=== PATIENT | male | born 1955 | race Caucasian/White ===

== ENCOUNTER 2017-04-25 13:00 | Outpatient (RCR) | payer BC ==
[~2017-04-25 13:00] MED LIST: ACETAMINOPHEN325 M1 ORAL; CEPHALEXIN500 MG ORAL; DILAUDID 22 MG/1 ML SUBQ; HEPARIN SO5000 UNIT2 SUBQ; MIRALAX17 GM ORAL; MS CONTIN100 MG ORAL; MYLANTA II30 ML ORAL; OXYCODONE-ACET1 EAC5 ORAL; RESTORIL15 MG ORAL; ROCEPHIN 11 GM/50 ML IVPB; SENOKOT8.6 MG ORAL; XANAX0.5 MG ORAL
== END 2017-04-27 | disposition home or self-care (01) ==
LOC: WCC 13:00
DX: L89.329 Pressure ulcer of left buttock, unspecified stage (principal); G82.21 Paraplegia, complete

== ENCOUNTER 2017-05-16 11:42 | Outpatient (RCR) | payer BC ==
[~2017-05-16] VITALS: Ht 165.1 cm; Wt 68.0 kg
== END 2017-05-28 | disposition home or self-care (01) ==
LOC: WCC 11:42
DX: L89.220 Pressure ulcer of left hip, unstageable (principal); G82.21 Paraplegia, complete; L89.224 Pressure ulcer of left hip, stage 4; L89.322 Pressure ulcer of left buttock, stage 2; L89.613 Pressure ulcer of right heel, stage 3
CPT/HCPCS: 11042; 11043; 87070; 87181; 87205

== ENCOUNTER 2017-05-30 08:47 | Outpatient (RCR) | payer BC ==
--- NOTE | 2017-05-30 14:24 | Infectious Diseases Prog Note ---
Assessment/Plan Problems: (1) Open wound of thigh, complicated Assessment & Plan: with an eschar , S/P I&D with culture grew MDR pseudomonas, klebsiella pneumonia and MSSA, unclear whether he hs underlying deep abscess or osteomyelitis, recommend MRI of the left thigh for further evaluation, and will start him on iv meropenem for minimum of two weeks pending MRI results of the left thigh . plan of care was discussed with patient and his and they agreed to proceed . D/W Dr Pate (2) Osteomyelitis of femur Assessment & Plan: possible due to chronic open wound of the left thigh, will need MRI of the left thigh to rule out osteomyelitis (3) Paraplegia Assessment & Plan: due to an old accident , continue offloading as needed Subjective Allergies: Coded Allergies: MEPERIDINE (Verified Allergy, Mild, 08/15/08) Harvey Correa M.D. May 30, 2017 14:24
--- NOTE | 2017-05-30 17:15 | Consultation ---
DATE OF CONSULTATION: 05/30/2017 INFECTIOUS DISEASE CONSULTATION CONSULTING PHYSICIAN: Harvey Correa M.D. REQUESTING PHYSICIAN: Elmer Pate M.D. REASON FOR CONSULTATION: Left thigh open wound complicated with infection due to Pseudomonas aeruginosa, multidrug resistant, Klebsiella pneumoniae, and MSSA with possible underlying osteomyelitis. Recommendation for antibiotics treatment and further management. 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 It started as redness on the left upper posterior thigh then it opened up and started draining a yellowish material then he formed an eschar in his wound. The patient has been seen [facility] for the last couple of weeks. He had aggressive debridement of his wound scar and culture was sent from that surgical debridement and the result of which grew multidrug-resistant Pseudomonas aeruginosa, Klebsiella pneumoniae, and methicillin-sensitive Staph aureus. Due to the nature of the wound and the depth and concern about underlying bone infection, Infectious Disease consultation was requested for further evaluation and management. The patient denied any local pain or tenderness since he does not have any sensation below T12. He denied any trauma to the left thigh or any skin break. No fever or chills. No cough or shortness of breath. No other associated symptoms. PAST MEDICAL HISTORY: Significant for paraplegia due to accident, chronic pain, and history of ischial wound infection stage IV, status post intravenous antibiotics treatment in 2015. PAST SURGICAL HISTORY: He had low back surgery with rods placement. ALLERGIES: He is allergic to meperidine. SOCIAL HISTORY: The patient lives at home with his . Denied using any drugs, tobacco, or alcohol. REVIEW OF SYSTEMS: A 14-point of system reviewed were all negative apart from the one I mentioned above in my History and Physical. PHYSICAL EXAMINATION: VITAL SIGNS: Reviewed and they are stable. GENERAL: A middle-aged male, paraplegic, lying in bed, comfortable, and not in acute distress. HEENT: Normocephalic and atraumatic. Pupils reactive to light. Moist oral mucosa. No exudate. NECK: Supple. No lymphadenopathy. CARDIOVASCULAR: Regular rate and rhythm. No murmur or gallop. LUNGS: Clear bilaterally. No wheezing or rhonchi. Normal breathing efforts. ABDOMEN: Soft, nontender, and nondistended. Positive bowel sounds. No hepatosplenomegaly. No ascites. EXTREMITY: Muscle atrophy. Left upper posterior thigh chronic deep wound with mild skin erythema. Exposed muscle. No bone exposed. No significant drainage or foul smell. Mild sloughing at the base. LABORATORY DATA: None done recently. IMAGING: No images done recently. ASSESSMENT AND RECOMMENDATION: 1. Open wound of the left thigh complicated with infection due to multidrug-resistant Pseudomonas aeruginosa, Klebsiella pneumoniae, and methicillin-sensitive Staph aureus. Unclear at this point whether he has underlying deep abscess or osteomyelitis. I recommend MRI of the left thigh for further evaluation and I will start him on intravenous meropenem empirically 1 g intravenous q.8 hours for minimum of two weeks pending MRI results of the left thigh. The patient may benefit from grafting in the future once infection is cleared. Plan of care was discussed with the patient and his and they both agreed to proceed. Plan of care also discussed with Dr. Pate and the wound care team. 2. Possible osteomyelitis of the left femur due to chronic open wound of the thigh. We will order MRI of the left thigh to rule out osteomyelitis. The patient will be started on intravenous meropenem empiric coverage. Continue local wound care as needed. 3. Paraplegia due to the old accident. Continue offloading as needed. Thank you for the consultation. ID will continue to follow. Harvey Correa M.D. DR: JAXSON JOB#: [id number] CC:
== END 2017-06-27 | disposition home or self-care (01) ==
LOC: WCC 08:47
DX: L89.224 Pressure ulcer of left hip, stage 4 (principal); L89.613 Pressure ulcer of right heel, stage 3; L89.322 Pressure ulcer of left buttock, stage 2; G82.21 Paraplegia, complete
CPT/HCPCS: 11043; 97605

== ENCOUNTER 2017-06-01 11:13 | Outpatient (CLI) | payer BC ==
[~2017-06-01] VITALS: Ht 165.1 cm; Wt 0.5 kg
[~2017-06-01 11:13] MED LIST changes: +Heparin 2000 units/Ns 1000ml INJ ONE; +Lidocaine 1% Plain 30 ml INJ ONE
--- NOTE | 2017-06-01 12:31 | Diagnostic Imaging Report ---
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 The left upper extremity was prepped with alcohol. All elements of maximal sterile barrier technique were followed including usage of a cap, mask, sterile gown, sterile gloves, hand hygiene and a large sterile sheet. Sonographic evaluation of the upper extremity was performed demonstrating a patent and compressible basilic vein. Access was obtained under real-time ultrasound guidance (with utilization of sterile gel and sterile probe cover) and digital image was saved and archived. An .018 wire was introduced. Needle exchanged for a 5 Korean peel-away sheath. Though some difficulty in advancing the wire. A venogram was then performed with injection of intravenous contrast material which showed widely patent vein. Was able to successfully advance the wire and catheter subsequently. Measurements were obtained. A 5 Korean dual-lumen Power PICC line catheter was cut to 38 cm and introduced over the wire. Peel-away sheath and wire were removed.Catheter was secured to the skin using 2-0 Prolene suture. Both ports aspirate and flush easily. Fluoroscopic images show distal tip in the superior vena cava. Total fluoroscopic time 2 minutes. Impression: Successful placement of an upper extremity PICC line catheter
--- NOTE | 2017-06-01 15:48 | Diagnostic Imaging Report ---
Indication: Shoulder pain Technique: MRI of the left femur/hip obtained in a 1.5 Abbi magnet. Pulse sequences obtained include multiplanar T1 and fast spin-echo and STIR. Findings: There is a prominent decubitus ulcer noted posterior to the left proximal femur with a well-defined air filled sinus tract that extends anteriorly. The tract terminates about 2 cm posterior to the subtrochanteric bone. Surrounding the tract there is extensive soft tissue infiltration with T1 hypointense/T2 hyperintense signal. This involves both the subcutaneous fat as well as part of the gluteus musculature. Difficult to completely exclude the possibility of heterogeneous abscess since no gadolinium was given. There is certainly evidence of phlegmon and cellulitis. Bone marrow signal is grossly normal. Evaluation for osteomyelitis and bone marrow edema is limited as there is an intramedullary rosie and proximal interlocking screw with susceptibility artifact within the femur and region of interest. IMPRESSION: Stage III decubitus ulcer posterior to the left hip. Adjacent phlegmon versus abscess and cellulitis. No obvious osteomyelitis with evaluation being limited due to presence of hardware.
== END 2017-06-01 13:13 | disposition home or self-care (01) ==
LOC: RAD 11:13
DX: M86.9 Osteomyelitis, unspecified (principal); L89.223 Pressure ulcer of left hip, stage 3; Z79.899 Other long term (current) drug therapy
CPT/HCPCS: 36569; 73718; 75820; 76937; J1644; J2001; Q9967

== ENCOUNTER 2017-07-04 10:17 | Outpatient (RCR) | payer BC ==
[~2017-07-04 10:17] MED LIST changes: -Heparin 2000 units/Ns 1000ml INJ ONE; -Lidocaine 1% Plain 30 ml INJ ONE
[2017-07-12] MEDS ORDERED: DOXYCYCLINE HYC50 MG PO (12:25)
[2017-07-12] MEDS ORDERED: OXYCODONE HCL E20 MG PO (12:25)
[2017-07-12] MEDS ORDERED: GABAPENTIN300 MG ORAL (12:25)
[2017-07-12] MEDS ORDERED: PERCOCET 10-321 EACH ORAL (12:25)
[2017-07-12] MEDS ORDERED: XANAX1 MG ORAL (12:25)
[2017-07-13] MEDS ORDERED: NEURONTIN300 MG ORAL (15:44)
== END 2017-07-28 | disposition home or self-care (01) ==
LOC: WCC 10:17
DX: L89.224 Pressure ulcer of left hip, stage 4 (principal); L89.310 Pressure ulcer of right buttock, unstageable; G82.21 Paraplegia, complete
CPT/HCPCS: 11043

== ENCOUNTER 2017-07-12 11:16 | Inpatient (IN) | payer BC ==
[~2017-07-12] VITALS: Ht 165.1 cm; Wt 63.5 kg
[2017-07-12] VITALS (12 sets, daily range): BP systolic 104–135; BP diastolic 56–74
[2017-07-12] MEDS ORDERED: PERCOCET 10-321 EACH ORAL (12:25)
[2017-07-12] MEDS ORDERED: GABAPENTIN300 MG ORAL (12:25)
[2017-07-12] MEDS ORDERED: DOXYCYCLINE HYC50 MG PO (12:25)
[2017-07-12] MEDS ORDERED: XANAX1 MG ORAL (12:25)
[2017-07-12] MEDS ORDERED: OXYCODONE HCL E20 MG PO (12:25)
[2017-07-12] MEDS ORDERED: EPINEPHrine 1mg/1ml Amp ONE (13:23)
[2017-07-12] MEDS ORDERED: Hydrogen Peroxide 473ml Bottle TOPIC ONE (13:24)
[2017-07-12] MEDS ORDERED: Lidocaine 1% 10mg/ml/Epi 0.005mg/ml 30ml vial INJ ONE (13:24)
[2017-07-12] MEDS ORDERED: Bacitracin 50000 Units Vial ONE ×2 (13:24→13:52)
[2017-07-12] MEDS ORDERED: Lidocaine 1% Plain 30 ml INJ ONE ×2 (13:24→13:31)
[2017-07-12] MEDS ORDERED: Bupivacaine 0.5% Inj 30 ml vial INJ ONE (13:24)
[2017-07-12] MEDS ORDERED: Bacitracin Oint 15gm Tube TOPIC ONE (13:24)
[2017-07-12] MEDS ORDERED: NeoSporin Gu Irrig 1ml Amp IRRIG ONE (13:24)
[2017-07-12] MEDS ORDERED: Bupivacaine 0.25% Inj 30ml INJ ONE (13:24)
[2017-07-12] MEDS ORDERED: Sterile Water Irrig 1000ml IRRIG ONE (13:30)
[2017-07-12] MEDS ORDERED: LR 1000ml ONE (13:30)
[2017-07-12] MEDS ORDERED: NS Irrig 1000ml ONE (13:30)
[2017-07-12] MEDS ORDERED: Propofol 200mg/20ml IV ONE ×2 (13:31→16:47)
[2017-07-12] MEDS ORDERED: fentaNYL 100 mcg/2 mL IV ONE (13:31)
[2017-07-12] MEDS ORDERED: Dexamethasone 4mg/ml vial ONE (13:31)
[2017-07-12] MEDS ORDERED: Midazolam 2mg/2ml Inj ONE (13:31)
[2017-07-12] MEDS ORDERED: Glycopyrrolate 0.2mg/ml 1ml Vial ONE (13:31)
[2017-07-12] MEDS ORDERED: Sugammadex Sodium 200mg/2ml vial IV ONE (13:38)
[2017-07-12] MEDS ORDERED: Zemuron 50mg/5ml Inj IV ONE (13:38)
--- NOTE | 2017-07-12 13:47 | Pre-Procedure Note/Attestation ---
Pre-Procedure Note/Attestation Complete Prior to Procedure Planned Procedure: left Procedure Narrative: Resection of left hip ulcer in preparation for flap closure, fasciocutaneous closure vs myocutaneous closure of left hip ulcer. Indications for Procedure Pre-Operative Diagnosis: Stage 4 left hip ulcer Attestation I attest that I discussed the nature of the procedure; its benefits; risks and complications; and alternatives (and the risks and benefits of such alternatives ), prior to the procedure, with the patient (or the patient's legal technical sales representative). I attest that, if there was a reasonable possibility of needing a blood transfusion, the patient (or the patient's legal technical sales representative) was given the [place] Department [employer] Services standardized written summary, pursuant to the Natanael [place] Blood Safety Act ([place] Health and Safety Code # 1645, as amended). I attest that I re-evaluated the patient just prior to the surgery and that there has been no change in the patient's H&P, except as documented below: Elmer Pate MD July 12, 2017 13:47
--- NOTE | 2017-07-12 14:07 | Anethesia Preoperative Eval ---
Anesthesia Pre-op PMH/ROS General Date of Evaluation: July 12, 2017 Time of Evaluation: 13:15 Anesthesiologist: ASA Score: ASA 3 Mallampati Score Class I : Soft palate, uvula, fauces, pillars visible Class II: Soft palate, uvula, fauces visible Class III: Soft palate, base of uvula visible Class IV: Only hard plate visible Mallampati Classification: Class III Surgeon: yakov Diagnosis: left hip ulcer Surgical Procedure: excision left hip ulcer with flap closure Anesthesia History: none Allergies: Coded Allergies: MEPERIDINE (Verified Allergy, Intermediate, nausea/vomiting, 07/12/17) Medications: see eMAR Past Medical History Cardiovascular: Denies: HTN, CAD, ID, valve dz, arrhythmia, other Pulmonary: Denies: asthma, COPD, RONAK, other Gastrointestinal/Genitourinary: Denies: GERD, CRI, ESRD, other Neurologic/Psychiatric: Denies: dementia, CVA, depression/anxiety, TIA, other Endocrine: Denies: DM, hypothyroidism, steroids, other HEENT: Denies: cataract (L), cataract (R), glaucoma, [place] (L), [place] (R), other Hematology/Immune: Reports: anemia, DVT Musculoskeletal/Integumentary: Reports: other - paraplegic, T11-T12 Fuentes rosie, rosie in left leg PSxH Narrative: fuentes rosie t11-t12, rosie in left leg, colostomy, penile implant, ivc filter Anesthesia Pre-op Phys. Exam Physician Exam Last Vital Signs Date Time Temp Pulse Resp B/P (MAP) Pulse Ox O2 Delivery O2 Flow Rate FiO2 07/12/17 12:18 97.9 75 18 105/65 97 Room Air 97.9 Constitutional: NAD Neurologic: other - paraplegia Cardiovascular: RRR Respiratory: CTA Gastrointestinal: S/NT/ND Airway Exam Mallampati Score: Class III MO: full ROM: limited Teeth: intact Dentures: no upper, no lower Anesthesia Pre-op A/P Risk Assessment & Plan Assessment: ASA 3 okay to proceed Plan: ETGA Pre-Antibiotics Drug: ancef 2 grams Given Within 1 Hr of Incision: Yes Time Given: 14:35 Cary Loera M.D. July 12, 2017 14:07
[2017-07-12] MEDS: ProvayBlue 5mg/ml 10ml amp INJ SCH ×2 (14:55→15:00)
[2017-07-12] MEDS ORDERED: LR 1000ml 1,000 ML IVLG SCH (15:17)
[2017-07-12] MEDS ORDERED: fentaNYL 100 mcg/2 mL IV PRN (15:30)
[2017-07-12] MEDS ORDERED: DiphenhydrAMINE 50mg/ml Inj IVP PRN (15:30)
--- NOTE | 2017-07-12 17:21 | Immediate Post-Op Evaluation ---
Immediate Post-Op Evalulation Immediate Post-Op Evalulation Procedure: excision left hip ulcer and debridement right ischial ulcer Date of Evaluation: July 12, 2017 Time of Evaluation: 17:01 IV Fluids: LR 1000ml Blood Products: 0 Estimated Blood Loss: 20 ml Urinary Output: 100ml Blood Pressure Systolic: 119 Blood Pressure Diastolic: 67 Pulse Rate: 75 Respiratory Rate: 19 O2 Sat by Pulse Oximetry: 99 Temperature (Fahrenheit): 97.8 Pain Score (1-10): 1 Nausea: No Vomiting: No Patient Status: awake, patent, none Hydration Status: adequate Drug: ancef 2grams Given Within 1 Hr of Incision: Yes - 1435 Time Given: 14:35 Cary Loera M.D. July 12, 2017 17:21
--- NOTE | 2017-07-12 17:22 | Brief Operative Note ---
Immediate Post Operative Note Operative Note Pre-op Diagnosis: Stage 4 left hip ulcer Procedure: Resection of left hip ulcer, fasciocutaneous flap closure. Debridement of right ischial ulcer Post-op Diagnosis: same as pre-op Surgeon: Rio Anesthesiologist: Anesthesia: general Specimen: yes Complications: none Condition: stable Fluids: IVF Estimated Blood Loss: minimal Drains: none Implant(s) used?: No Elmer Pate MD July 12, 2017 17:22
[2017-07-12] MEDS: ALPRAZolam 0.25mg tab ORAL PRN (21:21)
[2017-07-12] MEDS: Cephalexin 500mg cap ORAL SCH (21:23)
--- NOTE | 2017-07-13 02:00 | Operative Note - Dictated ---
DATE OF OPERATION: 07/12/2017 SURGEON: Elmer Pate M.D. ANESTHESIOLOGIST: Cary Loera M.D. PREOPERATIVE DIAGNOSES: 1. Stage IV left hip ulcer. 2. Stage III right ischial ulcer. POSTOPERATIVE DIAGNOSES: 1. Stage IV left hip ulcer. 2. Stage III right ischial ulcer. OPERATION: 1. Resection of stage IV left hip ulcer in preparation for fasciocutaneous flap closure of the lower extremity, elevation and closure of the left hip ulcer with a fasciocutaneous flap. 2. Excisional debridement of right ischial ulcer to the subcutaneous tissue. ANESTHESIA: General endotracheal anesthesia. OPERATIVE INDICATIONS: This is a 62-year-old male who is paraplegic and has had prior pressure ulcers of his buttock and posterior lower extremities in the past. He developed a stage IV pressure ulcer on his left lateral posterior thigh that was not amenable to nonsurgical wound care and showed no improvement. In addition, he developed a staged III right ischial pressure ulcer in attempts to offload the left side and so the decision was made to take him to the operating room for surgical resection of the left lower extremity ulcer with closure and debridement of the right ischial ulcer. Once he was medically cleared, he was scheduled for elective surgery. OPERATIVE PROCEDURE: The patient was seen in the preoperative area and the operative plan was again discussed and agreed upon. Operative markings were made and an IV was placed and he was taken back to the operating room. The patient was in the gurney in the supine position and once SCDs were placed to bilateral extremities, general endotracheal anesthesia was induced. He was placed in the prone position on Gel-Foam rolls and multiple pillows. Once all pressure points were padded, his buttocks and left lower extremity was prepped and draped in usual sterile fashion. Once time-out was performed, a #15-blade was used to perform an excisional debridement of the right ischial ulcer to subcutaneous tissue. This measured 2.5 x 1.5 x 0.4 cm. Hemostasis was obtained with pressure. Attention was then turned to the left lower extremity ulcer. This was stained with methylene blue and a 20 mL of 1% lidocaine with 1:200,000 epinephrine was injected into this skin and ulcer. After waiting appropriate time, a #15-blade was used to make the skin incision. Dissection proceeded to resect the ulcer and ulcer bursa completely. Once this was done, there was a deep retractor that was identified and this was excised as well. Pulse irrigation was then performed using triple antibiotic solution, Ancef, gentamicin, and bacitracin with 2 liters. Hemostasis was then carefully obtained and then was made and the tissue was rotated into place under no tension. A 2-0 PDS sutures were used in a simple interrupted fashion to close multiple layers begin with the muscle followed by deep subcutaneous tissue. A 2-0 Vicryl was then used to close the superficial subcutaneous tissue followed by 3-0 Monocryl in deep dermis and 4-0 Prolene in a running horizontal mattress fashion for the skin. The dressings were then applied, which consisted of Adaptic foam and ABD followed by foam tape. The patient was then placed on a Clinitron fluid air mattress and then extubated and taken to recovery room in stable condition. No complications. EBL was less than 25 mL. The patient tolerated the procedure well. Specimen was left lower extremity ulcer bursa sent for permanent pathology. The patient is stable. Elmer Pate M.D. DR: PATRICIA JOB#: [id number] CC: ELDA
[2017-07-13] MEDS: Cephalexin 500mg cap ORAL SCH ×4 (03:47→21:37)
[2017-07-13 04:00] VITALS: BP 101/58
[2017-07-13 08:00] VITALS: BP 116/69
[2017-07-13] MEDS: ALPRAZolam 0.25mg tab ORAL PRN (09:36)
--- NOTE | 2017-07-13 11:14 | 48 Hour Post Anesthesia Eval ---
Post Anesthesia Evaluation Procedure: excision left hip ulcer and debridement right ischial ulcer Date of Evaluation: July 13, 2017 Time of Evaluation: 06:15 Blood Pressure Systolic: 101 0: 58 Pulse Rate: 77 Respiratory Rate: 18 Temperature (Fahrenheit): 97.9 O2 Sat by Pulse Oximetry: 97 Airway: patent Nausea: No Vomiting: No Pain Intensity: 2 Hydration Status: adequate Cardiopulmonary Status: at baseline Mental Status/LOC: patient returned to baseline Post-Anesthesia Complications: 0 Follow-up care needed: N/A - further care as per primary team MICHAEL MORENO M.D. July 13, 2017 11:14
[2017-07-13 12:00] VITALS: BP 125/68
[2017-07-13] MEDS ORDERED: NEURONTIN300 MG ORAL (15:44)
[2017-07-13 16:00] VITALS: BP 113/60
[2017-07-13 18:31] LABS: BASOPHILS % (AUTO) 1.5 % (0.0-2.0); EOSINOPHILS % (AUTO) 2.1 % (0.0-3.0); HEMATOCRIT 34.8 % (42.0-52.0); HEMOGLOBIN 10.9 G/DL (14.2-18.0); LYMPHOCYTES % (AUTO) 27.9 % (20.0-45.0); MEAN CORPUSCULAR VOLUME 76 FL (80-99); MONOCYTES % (AUTO) 9.9 % (1.0-10.0); NEUTROPHILS % (AUTO) 58.6 % (45.0-75.0); PLATELET COUNT 508 K/UL (150-450); RED BLOOD COUNT 4.58 M/UL (4.70-6.10); RED CELL DISTRIBUTION WIDTH 17.3 % (11.6-14.8); WHITE BLOOD COUNT 9.8 K/UL (4.8-10.8)
[2017-07-13 19:06] LABS: ANION GAP 9 mmol/L (5-15); BLOOD UREA NITROGEN 14 mg/dL (7-18); CALCIUM 8.8 MG/DL (8.5-10.1); CARBON DIOXIDE 26 MMOL/L (21-32); CHLORIDE 103 MMOL/L (98-107); CREATININE 0.5 MG/DL (0.55-1.30); POTASSIUM 4.2 MMOL/L (3.5-5.1); SODIUM 138 MMOL/L (136-145)
[2017-07-13 20:00] VITALS: BP 123/72
--- NOTE | 2017-07-13 20:45 | History and Physical Report ---
DATE OF ADMISSION: 07/12/2017 REASON FOR ADMISSION: Debridement for stage IV left hip ulcer, stage III right ischial ulcer. The patient is status post resection of stage IV left hip ulcer with excisional debridement of right ischial ulcer. The patient also has a fasciocutaneous flap. HISTORY OF PRESENT ILLNESS: The patient is a 62-year-old paraplegic. He has pressure ulcers of the buttock and lower extremity. The patient had been followed by Dr. Pate. The patient underwent the above-noted procedure and I was asked to follow medically. The patient is comfortable at present. Medications reviewed. Care discussed with the nursing staff. PAST MEDICAL HISTORY: Notable for decubitus ulcer, paraplegia, osteomyelitis of the femur, infected myositis. The patient also has chronic pain. MEDICATIONS: Reviewed. ALLERGIES: To meperidine. SOCIAL HISTORY: Noted and reviewed. The patient is disabled at present. PHYSICAL EXAMINATION: GENERAL: A well-developed male. VITAL SIGNS: Blood pressure 101/58, pulse 77, respiratory rate 18, O2 saturation 97%, and temperature 97.9 degrees. HEENT: Overall negative. The patient's extraocular movements are grossly intact. NECK: Supple. No adenopathy. LUNGS: Fairly clear and symmetric. CARDIAC: Normal S1, S2. Regular rate and rhythm. ABDOMEN: Soft, nontender. EXTREMITIES: No edema. NEUROLOGICAL: With paraplegia. SKIN: The patient's dressing is in place. LABORATORY AND DIAGNOSTIC DATA: Laboratory data otherwise reviewed. None new at this time. IMPRESSION: 1. Multiple pressure ulcers, status post flap, status post debridement and resection. 2. Chronic pain syndrome. 3. Anxiety. RECOMMENDATIONS: Perioperative antibiotics, pain control, postoperative care, IV hydration, p.o. diet, and we will follow clinically. Assist with medical care and discharge planning. Sarbjit Smith M.D. DR: MARY BETH JOB#: [id number] CC: ELDA
[2017-07-14] VITALS: BP 105/63
[2017-07-14 04:00] VITALS: BP 95/62
[2017-07-14] MEDS: Cephalexin 500mg cap ORAL SCH ×4 (04:46→21:17)
[2017-07-14 08:00] VITALS: BP 103/68
[2017-07-14 12:00] VITALS: BP 110/71
[2017-07-14 16:00] VITALS: BP 107/68
--- NOTE | 2017-07-14 18:00 | General Progress Note ---
Assessment/Plan Assessment/Plan 1. Multiple pressure ulcers, status post flap, status post debridement and resection. 2. Chronic pain syndrome. 3. Anxiety. PLAN wound care pain control dc planning Subjective Allergies: Coded Allergies: MEPERIDINE (Verified Allergy, Intermediate, nausea/vomiting, 07/12/17) Subjective stable no distress pain controlled Objective Last 24 Hour Vital Signs Date Time Temp Pulse Resp B/P (MAP) Pulse Ox O2 Delivery O2 Flow Rate FiO2 07/14/17 16:00 98.0 80 20 107/68 98 98.0 07/14/17 12:00 98.0 80 20 110/71 98 98.0 07/14/17 08:00 97.8 82 20 103/68 98 97.8 07/14/17 04:00 Room Air 07/14/17 04:00 98.0 73 20 95/62 98 98.0 07/14/17 00:00 Room Air 07/14/17 00:00 97.2 77 20 105/63 98 97.2 07/13/17 20:00 97.7 75 20 123/72 99 97.7 07/13/17 20:00 Room Air Laboratory Tests 07/13/17 18:10: White Blood Count 9.8, Red Blood Count 4.58L, Hemoglobin 10.9L, Hematocrit 34.8L , Mean Corpuscular Volume 76L, Mean Corpuscular Hemoglobin 23.7L, Mean Corpuscular Hemoglobin Concent 31.2L, Red Cell Distribution Width 17.3H, Platelet Count 508H, Mean Platelet Volume 5.0L, Neutrophils (%) (Auto) 58.6, Lymphocytes (%) (Auto) 27.9, Monocytes (%) (Auto) 9.9, Eosinophils (%) (Auto) 2.1, Basophils (%) (Auto) 1.5, Sodium Level 138, Potassium Level 4.2, Chloride Level 103, Carbon Dioxide Level 26, Anion Gap 9, Blood Urea Nitrogen 14, Creatinine 0.5L, Estimat Glomerular Filtration Rate > 60, Glucose Level 103, Calcium Level 8.8 Height (Feet): 5 Height (Inches): 5.00 Weight (Pounds): 140 Objective WDWN NAD clear breath sounds bilaterally without rhonchi or wheeze [id number] without MRG NABS nontender no HSM no CCE paraplegia wounds Ishaaya,Sarbjit M MD July 14, 2017 18:00
[2017-07-14 20:00] VITALS: BP 116/83
[2017-07-14] MEDS: ALPRAZolam 0.25mg tab ORAL PRN (22:23)
[2017-07-15] VITALS: BP 100/53
[2017-07-15 04:00] VITALS: BP 127/68
[2017-07-15] MEDS: Cephalexin 500mg cap ORAL SCH ×4 (04:53→21:30)
[2017-07-15 08:00] VITALS: BP 126/64
--- NOTE | 2017-07-15 08:55 | General Progress Note ---
Assessment/Plan Assessment/Plan 1. Multiple pressure ulcers, status post flap, status post debridement and resection. 2. Chronic pain syndrome. 3. Anxiety. PLAN wound care ongoing pain control dc planning tuesday monitor for change surgical follow up Subjective Allergies: Coded Allergies: MEPERIDINE (Verified Allergy, Intermediate, nausea/vomiting, 07/12/17) Subjective stable no distress pain controlled necrosis on path Objective Last 24 Hour Vital Signs Date Time Temp Pulse Resp B/P (MAP) Pulse Ox O2 Delivery O2 Flow Rate FiO2 07/15/17 06:00 98.1 07/15/17 04:54 98.1 07/15/17 04:00 98.1 77 20 127/68 90 98.1 07/15/17 00:00 98.5 71 18 100/53 95 98.5 07/14/17 21:18 97.3 07/14/17 20:00 97.3 82 20 116/83 98 97.3 07/14/17 16:00 98.0 80 20 107/68 98 98.0 07/14/17 12:00 98.0 80 20 110/71 98 98.0 Intake and Output 07/14/17 07/15/17 19:00 07:00 Intake Total 1200 ml Output Total 800 ml Balance 400 ml Intake Oral 1200 ml Output Urine Total 800 ml Height (Feet): 5 Height (Inches): 5.00 Weight (Pounds): 140 Objective WDWN NAD clear breath sounds bilaterally without rhonchi or wheeze [id number] without MRG NABS nontender no HSM no CCE paraplegia wounds Sarbjit Smith MD July 15, 2017 08:55
[2017-07-15 12:00] VITALS: BP 110/62
[2017-07-15 16:00] VITALS: BP 139/98
[2017-07-15 20:00] VITALS: BP 106/53
[2017-07-15] MEDS: ALPRAZolam 0.25mg tab ORAL PRN (21:31)
[2017-07-16] VITALS: BP 101/68
[2017-07-16 04:00] VITALS: BP 123/64
[2017-07-16] MEDS: Cephalexin 500mg cap ORAL SCH ×4 (04:09→22:24)
[2017-07-16 08:00] VITALS: BP 108/53
--- NOTE | 2017-07-16 10:37 | General Progress Note ---
Assessment/Plan Assessment/Plan 1. Multiple pressure ulcers, status post flap, status post debridement and resection. 2. Chronic pain syndrome. 3. Anxiety. PLAN wound care as is pain control dc planning tuesday if stable monitor for change surgical follow up Subjective Allergies: Coded Allergies: MEPERIDINE (Verified Allergy, Intermediate, nausea/vomiting, 07/12/17) Subjective stable no distress pain stable necrosis on path Objective Last 24 Hour Vital Signs Date Time Temp Pulse Resp B/P (MAP) Pulse Ox O2 Delivery O2 Flow Rate FiO2 07/16/17 08:00 98.0 72 19 108/53 96 Room Air 98.0 07/16/17 07:31 97.4 07/16/17 04:00 97.4 61 20 123/64 96 97.4 07/16/17 00:00 97.2 71 20 101/68 96 97.2 07/15/17 20:00 97.7 66 20 106/53 97 97.7 07/15/17 16:00 97.7 70 21 139/98 99 Room Air 97.7 07/15/17 12:00 97.5 74 21 110/62 99 Room Air 97.5 Intake and Output 07/15/17 07/16/17 19:00 07:00 Intake Total 720 ml 780 ml Output Total 2000 ml Balance 720 ml -1220 ml Intake Oral 720 ml 780 ml Output Urine Total 2000 ml Height (Feet): 5 Height (Inches): 5.00 Weight (Pounds): 140 Objective WDWN NAD clear breath sounds bilaterally without rhonchi or wheeze [id number] without MRG NABS nontender no HSM no CCE paraplegia wounds Sarbjit Smith MD July 16, 2017 10:37
[2017-07-16] MEDS: ALPRAZolam 0.25mg tab ORAL PRN ×2 (10:41→19:36)
[2017-07-16 12:00] VITALS: BP 108/70
--- NOTE | 2017-07-16 14:54 | General Progress Note ---
Assessment/Plan Status: doing well, stable Assessment/Plan Doing well POD#4. Okay to e discharged to SNF on [place] bed from my standpoint. Discussed with piano case maker and once the bed is secured at [facility], he can be discharged. I will arrange follow up in the outpatient wound care center once he is 4-5 weeks post operatively. Subjective Date patient seen: July 16, 2017 Time patient seen: 14:40 Constitutional: Reports: no symptoms Allergies: Coded Allergies: MEPERIDINE (Verified Allergy, Intermediate, nausea/vomiting, 07/12/17) Subjective Patient is POD# 4 s/p resection of left hip ulcer with closure. He is doing well and has no complaints related to surgery. Objective Last 24 Hour Vital Signs Date Time Temp Pulse Resp B/P (MAP) Pulse Ox O2 Delivery O2 Flow Rate FiO2 07/16/17 12:00 97.8 73 19 108/70 95 Room Air 97.8 07/16/17 08:00 98.0 72 19 108/53 96 Room Air 98.0 07/16/17 07:31 97.4 07/16/17 04:00 97.4 61 20 123/64 96 97.4 07/16/17 00:00 97.2 71 20 101/68 96 97.2 07/15/17 20:00 97.7 66 20 106/53 97 97.7 07/15/17 16:00 97.7 70 21 139/98 99 Room Air 97.7 Intake and Output 07/15/17 07/16/17 19:00 07:00 Intake Total 720 ml 780 ml Output Total 2000 ml Balance 720 ml -1220 ml Intake Oral 720 ml 780 ml Output Urine Total 2000 ml Height (Feet): 5 Height (Inches): 5.00 Weight (Pounds): 140 General Appearance: no apparent distress, alert Skin: other - Surgical incision healing very well. No fluid collection and no signs of infection. Right ischial ulcer with small amount of fibrotic debris but superficial with no signs of infection. Elmer Pate MD July 16, 2017 14:54
[2017-07-16 16:00] VITALS: BP 113/62
[2017-07-16 20:11] VITALS: BP 132/79
[2017-07-17 00:37] VITALS: BP 125/73
[2017-07-17 04:00] VITALS: BP 100/66
[2017-07-17] MEDS: Cephalexin 500mg cap ORAL SCH ×4 (04:25→21:01)
--- NOTE | 2017-07-17 07:25 | General Progress Note ---
Assessment/Plan Assessment/Plan 1. Multiple pressure ulcers, status post flap, status post debridement and resection. 2. Chronic pain syndrome. 3. Anxiety. PLAN wound care as is pain control adequate dc planning to snf monitor for change surgical follow up noted; cleared Subjective Allergies: Coded Allergies: MEPERIDINE (Verified Allergy, Intermediate, nausea/vomiting, 07/12/17) Subjective stable no distress pain stable plan for snf dc Objective Last 24 Hour Vital Signs Date Time Temp Pulse Resp B/P (MAP) Pulse Ox O2 Delivery O2 Flow Rate FiO2 07/17/17 07:15 97.6 07/17/17 06:16 97.6 07/17/17 04:00 98.1 71 17 100/66 98 98.1 07/17/17 00:37 97.6 68 17 125/73 95 97.6 07/16/17 22:27 97.4 07/16/17 20:11 97.4 78 18 132/79 97 97.4 07/16/17 16:27 97.7 07/16/17 16:00 97.7 65 19 113/62 95 Room Air 97.7 07/16/17 12:00 97.8 73 19 108/70 95 Room Air 97.8 07/16/17 08:00 98.0 72 19 108/53 96 Room Air 98.0 07/16/17 07:31 97.4 Intake and Output 07/16/17 07/17/17 19:00 07:00 Intake Total 450 ml Output Total 350 ml 1800 ml Balance 100 ml -1800 ml Intake Oral 450 ml Output Urine Total 350 ml 1800 ml Height (Feet): 5 Height (Inches): 5.00 Weight (Pounds): 140 Objective WDWN NAD clear breath sounds bilaterally without rhonchi or wheeze [id number] without MRG NABS nontender no HSM no CCE paraplegia wounds Sarbjit Smith MD July 17, 2017 07:25
[2017-07-17 08:00] VITALS: BP 123/66
[2017-07-17] MEDS: ALPRAZolam 0.25mg tab ORAL PRN ×2 (09:13→22:10)
[2017-07-17 12:00] VITALS: BP 94/59
--- NOTE | 2017-07-17 15:57 | Consultation ---
History of Present Illness General Date patient seen: July 17, 2017 Time patient seen: 15:54 Chief Complaint: hip ulcer Referring physician: Sarah Reason for Consultation: SP tube management Present Illness HPI 62 yo male, paraplegic for over 30 years. SP tube dependent (24 serbian). Admitted for left hip ulcer mgmt. Due for SP tube change due to current one not draining well. patient changes his own, 24 serbian not available so he removed and cleaned tip and replaced himself. Draining very nicely now. Patient feels well. Allergies: Coded Allergies: MEPERIDINE (Verified Allergy, Intermediate, nausea/vomiting, 07/12/17) Medication History Scheduled Alprazolam* (Xanax*), 1 TAB ORAL THREE TIMES A DAY, (Reported) Doxycycline Hyclate (Doxycycline Hyclate), 50 MG PO TID, (Reported) Gabapentin (Neurontin), 900 MG ORAL THREE TIMES A DAY, (Reported) Oxycodone HCl (Oxycodone HCl ER), 20 MG PO TID, (Reported) Scheduled PRN Oxycodone Hcl/Acetaminophen 10-325 Mg Tablet (Percocet 10-325 Mg Tablet*), 1 TAB ORAL Q4H PRN for For Pain, (Reported) Discontinued Medications Acetaminophen* (Acetaminophen 325MG Tablet*), 650 MG ORAL Q4H PRN for fever Discontinued Reason: Pt stopped taking med Al Hydroxide/mg Hydroxide (Mag-Al Plus Suspension), 30 ML ORAL Q6H PRN for dyspepsia Discontinued Reason: Pt stopped taking med Alprazolam* (Xanax*), 0.5 MG ORAL TID PRN for For Anxiety, (Reported) Discontinued Reason: Pt stopped taking med Cephalexin* (Keflex*), 500 MG ORAL EVERY 12 HOURS Discontinued Reason: Pt stopped taking med Gabapentin* (Gabapentin*), 300 MG ORAL THREE TIMES A DAY, (Reported) Discontinued Reason: Medication dose changed Heparin Sod (Porcine) (Heparin Sodium*), 5,000 UNITS SUBQ EVERY 12 HOURS Discontinued Reason: MD discontinued med Hydromorphone Hcl/Pf (Dilaudid 2 Mg/Ml Ampul), 3 MG SUBQ Q4HR Discontinued Reason: Pt stopped taking med Morphine Sulfate (Morphine Sulfate ER), 100 MG ORAL EVERY 12 HOURS, (Reported) Discontinued Reason: Pt stopped taking med Oxycodone Hcl/Acetaminophen 10-325* (Oxycodone-Acetaminophen 10-325*), 1 TAB ORAL Q4H PRN for For Pain, (Reported) Discontinued Reason: Pt stopped taking med Polyethylene Glycol* (Miralax*), 17 GM ORAL HSPRN PRN for Constipation Discontinued Reason: Pt stopped taking med Sennosides (Senokot), 1 TAB ORAL DAILY PRN for Constipation Discontinued Reason: Pt stopped taking med Temazepam* (Restoril*), 15 MG ORAL HSPRN PRN for Insomnia Discontinued Reason: Pt stopped taking med Patient History History Provided By: Patient Healthcare decision maker Ken Kamara Resuscitation status Full Code Advanced Directive on File No Past Medical/Surgical History Past Medical/Surgical History: (1) Paraplegia (2) Decubitus ulcer of ischium, stage 4 Review of Systems All Other Systems: negative except mentioned in HPI Physical Exam General Appearance: alert HEENT: atraumatic Neck: supple Respiratory/Chest: lungs clear Cardiovascular/Chest: normal rate Abdomen: non tender, soft, other - sp tube in good position Last 24 Hour Vital Signs Date Time Temp Pulse Resp B/P (MAP) Pulse Ox O2 Delivery O2 Flow Rate FiO2 07/17/17 12:00 97.9 61 19 94/59 97 Room Air 97.9 07/17/17 08:00 98.6 77 19 123/66 98 Room Air 98.6 07/17/17 07:15 97.6 07/17/17 06:16 97.6 07/17/17 04:00 98.1 71 17 100/66 98 98.1 07/17/17 00:37 97.6 68 17 125/73 95 97.6 07/16/17 22:27 97.4 07/16/17 20:11 97.4 78 18 132/79 97 97.4 07/16/17 16:27 97.7 07/16/17 16:00 97.7 65 19 113/62 95 Room Air 97.7 Intake and Output 07/16/17 07/17/17 19:00 07:00 Intake Total 450 ml Output Total 350 ml 1800 ml Balance 100 ml -1800 ml Intake Oral 450 ml Output Urine Total 350 ml 1800 ml Height (Feet): 5 Height (Inches): 5.00 Weight (Pounds): 140 Medications Current Medications Medications (Trade) Dose Ordered Sig/Traci Route PRN Reason Start Time Stop Time Status Last Admin Dose Admin Alprazolam (Xanax) 1 mg Q8H PRN ORAL For Anxiety 07/12/17 20:30 07/19/17 20:29 07/17/17 09:13 Cephalexin (Keflex) 500 mg Q6H ORAL 07/12/17 22:00 07/19/17 21:59 07/17/17 09:13 Gabapentin (Neurontin) 900 mg Q8HR ORAL 07/14/17 22:00 08/13/17 21:59 07/17/17 14:15 Oxycodone/ Acetaminophen (Percocet 10/325) 1 tab Q6H PRN ORAL Severe Pain (Pain Scale 7-10) 07/16/17 13:00 07/23/17 12:59 07/17/17 12:22 Assessment/Plan Status: stable Assessment/Plan Patient changed own SP tube. He will get his own 24 serbian catheters from home tomorrow. Ok to continue monthly changes. Patient has been doing for 30 years and is very facile at it. 1. continue SP tube changes every 4 weeks 2. ok to use own SP tube, uses 24 serbian catheters. Kevin Fernandez M.D. July 17, 2017 15:57
[2017-07-17 16:00] VITALS: BP 152/78
[2017-07-17 20:00] VITALS: BP 144/77
[2017-07-18 04:00] VITALS: BP 126/65
[2017-07-18] MEDS: Cephalexin 500mg cap ORAL SCH ×4 (04:53→21:05)
[2017-07-18 08:00] VITALS: BP 119/72
--- NOTE | 2017-07-18 08:26 | General Progress Note ---
Assessment/Plan Assessment/Plan 1. Multiple pressure ulcers, status post flap, status post debridement and resection. 2. Chronic pain syndrome. 3. Anxiety. PLAN wound care as is pain control adequate dc planning to snf today if bed available monitor for change surgical follow up noted; cleared Subjective Allergies: Coded Allergies: MEPERIDINE (Verified Allergy, Intermediate, nausea/vomiting, 07/12/17) Subjective stable no distress pain stable plan for snf dc if bed available Objective Last 24 Hour Vital Signs Date Time Temp Pulse Resp B/P (MAP) Pulse Ox O2 Delivery O2 Flow Rate FiO2 07/18/17 05:56 98.0 07/18/17 04:57 98.0 07/18/17 04:00 98.2 74 20 126/65 98 98.2 07/17/17 20:00 98.0 73 19 144/77 95 98.0 07/17/17 16:00 97.2 61 20 152/78 96 Room Air 97.2 07/17/17 12:00 97.9 61 19 94/59 97 Room Air 97.9 Intake and Output 07/17/17 07/18/17 19:00 07:00 Intake Total 480 ml Output Total 500 ml 2200 ml Balance -20 ml -2200 ml Intake Oral 480 ml Output Urine Total 500 ml 2200 ml Height (Feet): 5 Height (Inches): 5.00 Weight (Pounds): 140 Objective WDWN NAD clear breath sounds bilaterally without rhonchi or wheeze [id number] without MRG NABS nontender no HSM no CCE paraplegia wounds noted awake and alert Sarbjit Smith MD July 18, 2017 08:26
[2017-07-18 12:00] VITALS: BP 113/79
[2017-07-18 16:00] VITALS: BP 135/88
[2017-07-18 20:00] VITALS: BP 129/83
[2017-07-18] MEDS: ALPRAZolam 0.25mg tab ORAL PRN (21:05)
[2017-07-19 04:00] VITALS: BP 114/77
[2017-07-19] MEDS: Cephalexin 500mg cap ORAL SCH ×3 (04:33→16:20)
--- NOTE | 2017-07-19 07:45 | General Progress Note ---
Assessment/Plan Assessment/Plan 1. Multiple pressure ulcers, status post flap, status post debridement and resection. 2. Chronic pain syndrome. 3. Anxiety. PLAN wound care as is pain control adequate dc planning to snf once special bed available monitor for change surgical follow up noted; cleared Subjective ROS Limited/Unobtainable: Yes Allergies: Coded Allergies: MEPERIDINE (Verified Allergy, Intermediate, nausea/vomiting, 07/12/17) Subjective stable no distress pain stable awaiting snf acceptance Objective Last 24 Hour Vital Signs Date Time Temp Pulse Resp B/P (MAP) Pulse Ox O2 Delivery O2 Flow Rate FiO2 07/19/17 06:41 97.9 07/19/17 05:42 97.9 07/19/17 04:00 97.9 72 19 114/77 95 97.9 07/18/17 23:41 98.0 07/18/17 20:00 98.0 67 19 129/83 98 98.0 07/18/17 16:00 97.4 64 18 135/88 99 Room Air 97.4 07/18/17 12:00 97.8 70 19 113/79 97 Room Air 97.8 07/18/17 08:00 98.3 79 18 119/72 99 Room Air 98.3 Intake and Output 07/18/17 07/19/17 19:00 07:00 Intake Total 950 ml Output Total 1250 ml 1600 ml Balance -300 ml -1600 ml Other 950 ml Output Urine Total 1250 ml 1600 ml Height (Feet): 5 Height (Inches): 5.00 Weight (Pounds): 140 Objective WDWN NAD clear breath sounds bilaterally without rhonchi or wheeze [id number] without MRG NABS nontender no HSM no CCE paraplegia wounds noted awake and alert Sarbjit Smith MD July 19, 2017 07:45
[2017-07-19 08:00] VITALS: BP 126/74
[2017-07-19 11:47] VITALS: BP 125/83
[2017-07-19] MEDS: ALPRAZolam 0.25mg tab ORAL PRN (14:35)
[2017-07-19 16:00] VITALS: BP 126/80
[2017-07-19 20:00] VITALS: BP 117/80
[2017-07-19] MEDS ORDERED: ALPRAZolam 0.5mg tab ORAL PRN (22:00)
[2017-07-20] VITALS: BP 130/85
[2017-07-20 08:00] VITALS: BP 124/78
--- NOTE | 2017-07-20 09:49 | General Progress Note ---
Assessment/Plan Assessment/Plan 1. Multiple pressure ulcers, status post flap, status post debridement and resection. 2. Chronic pain syndrome. 3. Anxiety. PLAN wound care as is pain control adequate; RX written for discharg dc planning to snf today patient agreeable Subjective Allergies: Coded Allergies: MEPERIDINE (Verified Allergy, Intermediate, nausea/vomiting, 07/12/17) Subjective stable no distress pain stable accepted to SNF Objective Last 24 Hour Vital Signs Date Time Temp Pulse Resp B/P (MAP) Pulse Ox O2 Delivery O2 Flow Rate FiO2 07/20/17 08:00 97.7 74 16 124/78 96 Room Air 97.7 07/20/17 00:00 97.4 69 20 130/85 97 97.4 07/19/17 20:00 98.2 74 20 117/80 98 98.2 07/19/17 16:00 97.3 65 19 126/80 100 Room Air 97.3 07/19/17 11:47 97.5 79 16 125/83 97 Room Air 97.5 Intake and Output 07/19/17 07/20/17 19:00 07:00 Intake Total 1000 ml 450 ml Output Total 2000 ml 2300 ml Balance -1000 ml -1850 ml Intake Oral 1000 ml 450 ml Output Urine Total 2000 ml 2300 ml Stool Total 0 ml Height (Feet): 5 Height (Inches): 5.00 Weight (Pounds): 140 Objective WDWN NAD clear breath sounds bilaterally without rhonchi or wheeze [id number] without MRG NABS nontender no HSM no CCE paraplegia wounds noted awake and alert Sarbjit Smith MD July 20, 2017 09:48
[2017-07-20 12:10] VITALS: BP 107/68
--- NOTE | 2017-07-21 12:47 | Discharge Summary ---
Discharge Summary Discharge Summary _ DATE OF ADMISSION: 07/12/2017 DATE OF DISCHARGE: 07/20/2017 SURGEON: Dr. Elmer Pate BRIEF HOSPITAL COURSE: Patient is a 62-year-old male, who is paraplegic and with prior pressure ulcers on the buttocks and posterior lower extremities in the past. He developed a stage IV pressure ulcer on his left lateral posterior thigh that was not amenable to surgical wound care and showed no improvement. In addition, he developed a stage III right ischial pressure ulcer in attempt to offload the left side; and so the decision was made for a surgical resection of the lower extremity ulcer with closure and debridement of the right ischial ulcer. He has medical history significant for decubitus ulcer, paraplegia, osteomyelitis of the femur, myositis and chronic pain. He was admitted on 07/12/2017 and underwent resection of stage IV left hip ulcer in preparation for fasciocutaneous flap closure of the lower extremity, elevation and closure of the left hip ulcer with a fasciocutaneous flap; and excisional debridement of the right ischial ulcer to the subcutaneous tissue by Dr. Pate. Post surgery, he was placed on a Cl[place]ron fluid air mattress. He was given IV fluids. He was provided with wound care and pain control. Pathology report showed granulation tissue and necrosis. He has history of suprapubic catheter. Urologist was consulted as suprapubic catheter was not draining well. A Azeri 24 catheter was not available, patient removed and cleaned the tip and replaced it himself. Patient has been doing suprapubic catheter changed every 4 weeks for 30 years. He stated he will get his own 24 Azeri catheters upon discharge[facility] Confirmed delivery, patient was eventually discharged to fdc. FINAL DIAGNOSES: Multiple pressure ulcers- stage IV left hip ulcer, and stage III right ischial ulcer, present on admission Status post resection of stage IV left hip ulcer in preparation for facet of cutaneous flap closure of the lower extremity, elevation and closure of the left hip ulcer with a fussy of cutaneous flap Status post excisional debridement of right ischial ulcer to the subcutaneous tissue Chronic pain syndrome Anxiety Paraplegia Status post suprapubic catheter DISPOSITION: Patient was discharged to [facility]. DISCHARGE MEDICATIONS: Refer to Discharge Medication List. DISCHARGE INSTRUCTIONS: Follow up at outpatient wound care center 4-5 weeks postoperatively. I have been assigned to dictate discharge summary on this account, and I was not involved in the patient's management. Lucy Bennett NP July 21, 2017 12:47
== END 2017-07-20 15:43 | DRG 570 ==
LOC: SUR 11:16 → 4E 17:12
DX: L89.224 Pressure ulcer of left hip, stage 4 (principal); G82.20 Paraplegia, unspecified; L89.313 Pressure ulcer of right buttock, stage 3; Z88.8 Allergy status to other drugs, medicaments and biological substances; G89.4 Chronic pain syndrome; F41.9 Anxiety disorder, unspecified
CPT/HCPCS: 36415; 80048; 85025; 94003; 94150; J2250; J2405

== ENCOUNTER 2017-08-03 13:29 | Inpatient (IN) | payer BC ==
[~2017-08-03] VITALS: Ht 165.1 cm; Wt 75.0 kg
[~2017-08-03 13:29] MED LIST changes: +DOXYCYCLINE HYC50 MG PO; +GABAPENTIN300 MG ORAL; +NEURONTIN300 MG ORAL; +OXYCODONE HCL E20 MG PO; +PERCOCET 10-321 EACH ORAL; +XANAX1 MG ORAL
[2017-08-03 13:44] VITALS: BP 93/59
[2017-08-03] MEDS ORDERED: AUGMENTIN 500-1 EACH ORAL (14:46)
--- NOTE | 2017-08-03 14:52 | Emergency Room Report ---
History of Present Illness General Chief Complaint: General Complaint Source: Patient, Medical Record Present Illness HPI Patient has a history of paraplegia. Patient had a history of decubitus ulcers on both hips. They were operated on with skin flaps. Patient's left hip still has sutures in place apparently had some discharge and patient was sent here as the discharge grew MRSA. Patient denied any fever chest pain or shortness of breath. Denies any nausea vomiting diarrhea or chills. Patient's surgeon/ physician is Dr. Pate. No other complaints are noted.No other modifying factors. No other associated signs and symptoms. No other complaints were noted. Allergies: Coded Allergies: MEPERIDINE (Verified Allergy, Intermediate, nausea/vomiting, 07/12/17) Patient History Past Medical History: DM, other - IVC filter PSxH Narrative skin flap Social History: Denies: smoking, alcohol use, drug use Social History Narrative staying at assisted-living Reviewed Nursing Documentation: PMH: Agreed; PSxH: Agreed Nursing Documentation-PMH Past Medical History: No History, Except For Hx Cardiac Problems: Yes - IVC blood clot filter Hx Diabetes: Yes Hx Cancer: No Hx Gastrointestinal Problems: Yes Hx Neurological Problems: Yes Hx Spinal Cord Injury: Yes - PARAPLEGIC Review of Systems All Other Systems: negative except mentioned in HPI Physical Exam Vital Signs Date Time Temp Pulse Resp B/P (MAP) Pulse Ox O2 Delivery O2 Flow Rate FiO2 08/03/17 13:28 98.3 68 12 93/59 94 Room Air 98.2 Sp02 EP Interpretation: reviewed, normal General Appearance: normal inspection, well appearing, no apparent distress, alert Head: atraumatic Eyes: bilateral eye normal inspection ENT: normal ENT inspection, hearing grossly normal, normal voice Neck: normal inspection, full range of motion, supple, no bony tend Respiratory: normal inspection, lungs clear, normal breath sounds, no respiratory distress, no retraction, no wheezing Cardiovascular #1: regular rate, rhythm, no edema Gastrointestinal: normal inspection, normal bowel sounds, non tender, soft, no guarding, no hernia Genitourinary: no CVA tenderness Musculoskeletal: back normal, other - left hip wound healing, no abscess, however evidence of drainage Neurologic: normal inspection, alert, responsive, speech normal Psychiatric: normal inspection, judgement/insight normal, mood/affect normal Skin: other - left wound hip healing Medical Decision Making Diagnostic Impression: Primary Impression: Wound infection ER Course Patient presents in emergency department today complaining infection left hip. With drainage. Differential considerations include abscess, cellulitis, wound infection. Given patient's presentation in the recent wound culture which was positive for MRSA case was discussed in detail with Dr. Fabián Kilpatrick evaluated patient emergency department as well as infectious disease physician. It was felt the patient require admission to the hospital. Patient will be admitted to Dr. Smith for further treatment. Labs Test 08/03/17 16:50 White Blood Count 6.5 K/UL (4.8-10.8) Red Blood Count 4.69 M/UL (4.70-6.10) Hemoglobin 11.4 G/DL (14.2-18.0) Hematocrit 36.3 % (42.0-52.0) Mean Corpuscular Volume 77 FL (80-99) Mean Corpuscular Hemoglobin 24.3 PG (27.0-31.0) Mean Corpuscular Hemoglobin Concent 31.4 G/DL (32.0-36.0) Red Cell Distribution Width 17.7 % (11.6-14.8) Platelet Count 340 K/UL (150-450) Mean Platelet Volume 5.5 FL (6.5-10.1) Neutrophils (%) (Auto) 54.8 % (45.0-75.0) Lymphocytes (%) (Auto) 31.4 % (20.0-45.0) Monocytes (%) (Auto) 7.1 % (1.0-10.0) Eosinophils (%) (Auto) 4.3 % (0.0-3.0) Basophils (%) (Auto) 2.4 % (0.0-2.0) Prothrombin Time 9.5 SEC (9.30-11.50) Prothromb Time International Ratio 0.9 (0.9-1.1) Activated Partial Thromboplast Time 26 SEC (23-33) Sodium Level 141 MMOL/L (136-145) Potassium Level 4.8 MMOL/L (3.5-5.1) Chloride Level 107 MMOL/L (98-107) Carbon Dioxide Level 23 MMOL/L (21-32) Anion Gap 11 mmol/L (5-15) Blood Urea Nitrogen 14 mg/dL (7-18) Creatinine 0.8 MG/DL (0.55-1.30) Estimat Glomerular Filtration Rate > 60 mL/min (>60) Glucose Level 101 MG/DL (74-106) Calcium Level 8.8 MG/DL (8.5-10.1) Total Bilirubin 0.3 MG/DL (0.2-1.0) Aspartate Amino Transf (AST/SGOT) 37 U/L (15-37) Alanine Aminotransferase (ALT/SGPT) 28 U/L (12-78) Alkaline Phosphatase 112 U/L (46-116) Total Protein 8.0 G/DL (6.4-8.2) Albumin 2.9 G/DL (3.4-5.0) Globulin 5.1 g/dL Albumin/Globulin Ratio 0.6 (1.0-2.7) Last Vital Signs Date Time Temp Pulse Resp B/P (MAP) Pulse Ox O2 Delivery O2 Flow Rate FiO2 08/03/17 13:44 98.2 65 12 93/59 96 Room Air 98.2 Status: improved Disposition: ADMITTED INPATIENT Condition: Serious Albert Willoughby MD Aug 03, 2017 14:52
[2017-08-03] MEDS ORDERED: ZINC10 MG ORAL (15:01)
[2017-08-03] MEDS ORDERED: CIPRO500 MG PO (15:01)
[2017-08-03] MEDS ORDERED: VITAMIN C250 MG ORAL (15:01)
[2017-08-03] MEDS ORDERED: GABAPENTIN300 MG ORAL (15:01)
[2017-08-03] MEDS ORDERED: MULTIVITAMINS1 EAC8 ORAL (15:01)
--- NOTE | 2017-08-03 15:12 | Infectious Diseases Prog Note ---
Assessment/Plan Problems: (1) Infected wound Assessment & Plan: of the left lateral thigh with mild drainage , and recent culture grew MRSA at the rehab facility , will send wound culture and blood culture, start him on vancomycin and cefepime empirically pending surgical eval (2) Open wound of left thigh Assessment & Plan: S/P fasciocutaneous flap done last month, with H/O infection due to pseudomonas aeruginosa , MSSA Subjective Allergies: Coded Allergies: MEPERIDINE (Verified Allergy, Intermediate, nausea/vomiting, 07/12/17) Objective Vital Signs Last 24 Hour Vital Signs Date Time Temp Pulse Resp B/P (MAP) Pulse Ox O2 Delivery O2 Flow Rate FiO2 08/03/17 13:44 98.2 65 12 93/59 96 Room Air 98.2 08/03/17 13:28 98.3 68 12 93/59 94 Room Air 98.2 Height (Feet): 5 Height (Inches): 5.00 Weight (Pounds): 130 Harvey Correa M.D. Aug 03, 2017 15:12
[2017-08-03 15:40] VITALS: BP 112/76
--- NOTE | 2017-08-03 17:01 | Diagnostic Imaging Report ---
Indication: Pain Technique: 2 views of the left hip Comparison: none Findings: Surgical hardware is seen reducing old healed left distal femoral fracture. No acute fractures. No dislocations. Joint spaces are preserved. Impression: No definite acute process. Findings as noted
[2017-08-03 17:09] LABS: BASOPHILS % (AUTO) 2.4 % (0.0-2.0); EOSINOPHILS % (AUTO) 4.3 % (0.0-3.0); HEMATOCRIT 36.3 % (42.0-52.0); HEMOGLOBIN 11.4 G/DL (14.2-18.0); LYMPHOCYTES % (AUTO) 31.4 % (20.0-45.0); MEAN CORPUSCULAR VOLUME 77 FL (80-99); MONOCYTES % (AUTO) 7.1 % (1.0-10.0); NEUTROPHILS % (AUTO) 54.8 % (45.0-75.0); PLATELET COUNT 340 K/UL (150-450); RED BLOOD COUNT 4.69 M/UL (4.70-6.10); RED CELL DISTRIBUTION WIDTH 17.7 % (11.6-14.8); WHITE BLOOD COUNT 6.5 K/UL (4.8-10.8)
[2017-08-03 17:18] LABS: INR 0.9 (0.9-1.1)
[2017-08-03 17:20] LABS: ANION GAP 11 mmol/L (5-15); BLOOD UREA NITROGEN 14 mg/dL (7-18); CALCIUM 8.8 MG/DL (8.5-10.1); CARBON DIOXIDE 23 MMOL/L (21-32); CHLORIDE 107 MMOL/L (98-107); CREATININE 0.8 MG/DL (0.55-1.30); POTASSIUM 4.8 MMOL/L (3.5-5.1); SODIUM 141 MMOL/L (136-145)
[2017-08-03 17:25] LABS: ALANINE AMINOTRANSFERASE 28 U/L (12-78); ALBUMIN 2.9 G/DL (3.4-5.0); ALBUMIN/GLOBULIN RATIO 0.6 (1.0-2.7); ALKALINE PHOSPHATASE 112 U/L (46-116); ASPARTATE AMINO TRANSFERASE 37 U/L (15-37); BILIRUBIN,TOTAL 0.3 MG/DL (0.2-1.0)
[2017-08-03 17:40] VITALS: BP 115/72
[2017-08-03] MEDS ORDERED: AUGMENTIN 875-1 EAC1 ORAL (17:59)
[2017-08-03] MEDS ORDERED: SANTYL TOPIC (18:01)
[2017-08-03] MEDS ORDERED: Norco 5mg/325mg tab ORAL ONE (18:30)
[2017-08-03] MEDS ORDERED: Gadavist 7.5mMol/7.5ml vial IV PRN (19:15)
--- NOTE | 2017-08-03 19:20 | Consultation ---
History of Present Illness General Date patient seen: Aug 03, 2017 Time patient seen: 17:30 Chief Complaint: General Complaint Reason for Consultation: Drainage from incision Present Illness HPI Patient is 3 weeks s/p resection and closure of left thigh pressure ulcer. He has been at a SNF on a clinitron bed for the last 2 weeks. He developed some drainage from his incision site and per the nurse at the SNF he has also been sitting for extended periods of time during his stay. A culture was performed which was + for MRSA. He was transferred to ER for evaluation of his surgical site for possible abscess/infection. He has no fevers and no other systemic complaints. Allergies: Coded Allergies: MEPERIDINE (Verified Allergy, Intermediate, nausea/vomiting, 07/12/17) Medication History Scheduled Alprazolam* (Xanax*), 1 TAB ORAL THREE TIMES A DAY, (Reported) Amoxicillin/Potassium Clav 875-125* (Augmentin 875-125 Tablet*), 1 TAB ORAL TWICE A DAY, (Reported) Ascorbic Acid* (Vitamin C*), 250 MG ORAL TWICE A DAY, (Reported) Ciprofloxacin* (Cipro*), 500 MG PO BID, (Reported) Gabapentin* (Gabapentin*), 900 MG ORAL THREE TIMES A DAY, (Reported) Multivitamin With Minerals (Multivitamins With Minerals*), 1 TAB ORAL DAILY, ( Reported) [Santyl], TOPIC DAILY, (Reported) Scheduled PRN Oxycodone Hcl/Acetaminophen 10-325 Mg Tablet (Percocet 10-325 Mg Tablet*), 1 TAB ORAL Q4H PRN for FOR MODERATE PAIN (4-10), (Reported) Miscellaneous Medications Zinc Gluconate (Zinc), 10 MG ORAL, (Reported) Discontinued Medications Doxycycline Hyclate (Doxycycline Hyclate), 50 MG PO TID, (Reported) Discontinued Reason: Pt stopped taking med Oxycodone HCl (Oxycodone HCl ER), 20 MG PO TID, (Reported) Discontinued Reason: Pt stopped taking med Patient History History Provided By: Patient, Family Member Healthcare decision maker Resuscitation status Advanced Directive on File Review of Systems Constitutional: Denies: no symptoms, see HPI, chills, sweats, fever, malaise, weakness, other Eye: Reports: no symptoms Respiratory: Reports: no symptoms Gastrointestinal: Reports: no symptoms Musculoskeletal: Reports: no symptoms Skin: Reports: see HPI Physical Exam General Appearance: no apparent distress, alert Respiratory/Chest: no respiratory distress Skin Exam: other - Incision line intact and sutures intact. No swelling, fluctance, or erythema or warmth. Small amount of nonpurulent drainage on the dressing Last 24 Hour Vital Signs Date Time Temp Pulse Resp B/P (MAP) Pulse Ox O2 Delivery O2 Flow Rate FiO2 08/03/17 18:30 98.2 08/03/17 17:40 98.6 68 16 115/72 96 Room Air 98.6 08/03/17 15:40 98.2 65 12 112/76 96 Room Air 98.2 08/03/17 13:44 98.2 65 12 93/59 96 Room Air 98.2 08/03/17 13:28 98.3 68 12 93/59 94 Room Air 98.2 Laboratory Tests Test 08/03/17 16:50 White Blood Count 6.5 K/UL (4.8-10.8) Red Blood Count 4.69 M/UL (4.70-6.10) L Hemoglobin 11.4 G/DL (14.2-18.0) L Hematocrit 36.3 % (42.0-52.0) L Mean Corpuscular Volume 77 FL (80-99) L Mean Corpuscular Hemoglobin 24.3 PG (27.0-31.0) L Mean Corpuscular Hemoglobin Concent 31.4 G/DL (32.0-36.0) L Red Cell Distribution Width 17.7 % (11.6-14.8) H Platelet Count 340 K/UL (150-450) Mean Platelet Volume 5.5 FL (6.5-10.1) L Neutrophils (%) (Auto) 54.8 % (45.0-75.0) Lymphocytes (%) (Auto) 31.4 % (20.0-45.0) Monocytes (%) (Auto) 7.1 % (1.0-10.0) Eosinophils (%) (Auto) 4.3 % (0.0-3.0) H Basophils (%) (Auto) 2.4 % (0.0-2.0) H Prothrombin Time 9.5 SEC (9.30-11.50) Prothromb Time International Ratio 0.9 (0.9-1.1) Activated Partial Thromboplast Time 26 SEC (23-33) Sodium Level 141 MMOL/L (136-145) Potassium Level 4.8 MMOL/L (3.5-5.1) Chloride Level 107 MMOL/L (98-107) Carbon Dioxide Level 23 MMOL/L (21-32) Anion Gap 11 mmol/L (5-15) Blood Urea Nitrogen 14 mg/dL (7-18) Creatinine 0.8 MG/DL (0.55-1.30) Estimat Glomerular Filtration Rate > 60 mL/min (>60) Glucose Level 101 MG/DL (74-106) Calcium Level 8.8 MG/DL (8.5-10.1) Total Bilirubin 0.3 MG/DL (0.2-1.0) Aspartate Amino Transf (AST/SGOT) 37 U/L (15-37) Alanine Aminotransferase (ALT/SGPT) 28 U/L (12-78) Alkaline Phosphatase 112 U/L (46-116) Total Protein 8.0 G/DL (6.4-8.2) Albumin 2.9 G/DL (3.4-5.0) L Globulin 5.1 g/dL Albumin/Globulin Ratio 0.6 (1.0-2.7) L Height (Feet): 5 Height (Inches): 5.00 Weight (Pounds): 130 Medications Current Medications Medications (Trade) Dose Ordered Sig/Traci Route PRN Reason Start Time Stop Time Status Last Admin Dose Admin Cefepime HCl 2 gm/ Dextrose 55 ml @ 110 mls/hr EVERY 12 HOURS IVPB 08/03/17 21:00 08/10/17 20:59 UNV Vancomycin HCl (Vanco rx to dose) 1 ea DAILY PRN MISC Per rx protocol 08/03/17 15:15 09/02/17 15:14 UNV Assessment/Plan Status: stable Assessment/Plan Although clinical suspicion of abscess is low, he did have a + culture of the fluid at the SNF. In discussion with ID, will recommend admission, MRI to look for deep space abscess/fluid collection, and IV antibiotics. Discussed this with patient and . No surgical intervention necessary at this time. Elmer Pate MD Aug 03, 2017 19:20
[2017-08-03 19:44] VITALS: BP 110/80
[2017-08-03] MEDS: Cefepime HCl 2 GM in D5W 110 ML IVPB SCH (21:50)
[2017-08-03] MEDS: ALPRAZolam 0.5mg tab ORAL PRN (23:00)
[2017-08-03 23:25] VITALS: BP 105/62
[2017-08-04] MEDS: Vancomycin 750mg/NS 250ml IVPB SCH ×3 (00:23→22:04)
[2017-08-04 04:40] VITALS: BP 102/61
[2017-08-04 08:00] VITALS: BP 112/78
[2017-08-04] MEDS: Cefepime HCl 2 GM in D5W 110 ML IVPB SCH ×2 (13:52→21:05)
--- NOTE | 2017-08-04 14:14 | Diagnostic Imaging Report ---
Indication: 62-year-old male with history of left hip/buttock decubitus ulceration, status post flap closure, now with draining wound Technique: Axial, sagittal, coronal T1-weighted and STIR images. Postcontrast axial and coronal T1 fat saturated images of the left thigh Comparison: 06/01/2017 Findings: There is a left femoral medullary rosie which creates susceptibility artifact, particularly distally, which could obscure pathology. Previously demonstrated left buttock and posterior and posterolateral hip edema is markedly improved, with minimal residual edema seen lateral to the intertrochanteric region of the left hip. There is some edema within the superficial muscular compartment anteriorly and laterally in the distal thigh which appears unchanged from the previous exam. A linear band of soft tissue edema is seen posterolaterally extending to the skin surface just distal to the intertrochanteric region. This is in the area of the previous much more extensive abnormality. No discrete fluid collections to suggest abscess. No bone marrow signal abnormality demonstrated. Previously demonstrated soft tissue ulcer and gas are no longer evident. The pre and postcontrast T1 fat saturated images are largely obscured by artifact from the hardware. While there is no definite contrast enhancement there is too much artifact to confidently rule this out. Incidentally noted is a Richter catheter within the bladder Impression: Since 06/01/2017, interim marked improvement of previously demonstrated posterior left thigh/buttock decubitus ulcer, and associated presumed cellulitis/phlegmon. Some edema within the posterolateral left thigh and anterolateral superficial muscular compartment most likely represents residual inflammation. No definite abscess. However, this is difficult to completely exclude as the postcontrast images are largely nondiagnostic due to limited susceptibility artifact from the femoral hardware No definite marrow signal abnormality to suggest acute osteomyelitis Richter catheter incidentally noted
--- NOTE | 2017-08-04 14:52 | Infectious Diseases Prog Note ---
Assessment/Plan Problems: (1) Infected wound Assessment & Plan: of the left lateral thigh with mild drainage , with recent culture grew MRSA at the rehab facility , await wound culture and blood culture , continue vancomycin and cefepime empirically pending cultures , MRI didn't show any abscess or fluids collection or osteomyelitis underneath it (2) Open wound of left thigh Assessment & Plan: S/P fasciocutaneous flap done last month, with H/O infection due to pseudomonas aeruginosa , MSSA. on vancomycin and cefepime empirically pending cultures Subjective Constitutional: Reports: no symptoms HEENT: Reports: no symptoms Respiratory: Reports: no symptoms Breasts: Reports: no symptoms Cardiovascular: Reports: no symptoms Gastrointestinal/Abdominal: Reports: no symptoms Genitourinary: Reports: no symptoms Neurologic: Reports: no symptoms Psychiatric: Reports: no symptoms Skin: Reports: no symptoms Endocrine: Reports: no symptoms Hematologic: Reports: no symptoms Musculoskeletal: Reports: no symptoms Allergies: Coded Allergies: MEPERIDINE (Verified Allergy, Intermediate, nausea/vomiting, 07/12/17) Subjective he was doing well , awake and alert, denied any thigh pain, redness or swelling Objective Vital Signs Last 24 Hour Vital Signs Date Time Temp Pulse Resp B/P (MAP) Pulse Ox O2 Delivery O2 Flow Rate FiO2 08/04/17 10:21 97.3 08/04/17 09:22 97.3 08/04/17 08:00 97.7 63 20 112/78 97 97.7 08/04/17 04:40 97.3 66 18 102/61 97 97.3 08/04/17 04:00 Room Air 08/04/17 00:00 Room Air 08/03/17 23:25 97.7 73 18 105/62 98 97.7 08/03/17 20:00 Room Air 08/03/17 19:45 98.8 68 16 110/80 96 Room Air 98.8 08/03/17 19:44 98.8 68 16 110/80 96 Room Air 98.8 08/03/17 18:30 98.2 08/03/17 17:40 98.6 68 16 115/72 96 Room Air 98.6 08/03/17 15:40 98.2 65 12 112/76 96 Room Air 98.2 Height (Feet): 5 Height (Inches): 5.00 Weight (Pounds): 130 General Appearance: WD/WN, no acute distress HEENT: normocephalic, atraumatic, anicteric, mucous membranes moist, PERRL Respiratory/Chest: chest wall non-tender, lungs clear, normal breath sounds, no respiratory distress, no accessory muscle use, respiratory distress Cardiovascular: normal peripheral pulses, normal rate, regular rhythm, no gallop/murmur, no JVD Abdomen: normal bowel sounds, soft, non tender, no organomegaly, non distended , no mass, no scars Extremities: no cyanosis, no clubbing Skin: no rash, no lesions, other - left later thigh surgical wound , healed and dry , with mild dr Neurologic/Psychiatric: alert, oriented x 3, responsive Microbiology Date/Time Source Procedure Growth Status 08/03/17 16:50 Hip Left Gram Stain - Final Resulted 08/03/17 16:50 Hip Left Wound Culture Pending Resulted Laboratory Tests Test 08/03/17 16:50 White Blood Count 6.5 K/UL (4.8-10.8) Red Blood Count 4.69 M/UL (4.70-6.10) L Hemoglobin 11.4 G/DL (14.2-18.0) L Hematocrit 36.3 % (42.0-52.0) L Mean Corpuscular Volume 77 FL (80-99) L Mean Corpuscular Hemoglobin 24.3 PG (27.0-31.0) L Mean Corpuscular Hemoglobin Concent 31.4 G/DL (32.0-36.0) L Red Cell Distribution Width 17.7 % (11.6-14.8) H Platelet Count 340 K/UL (150-450) Mean Platelet Volume 5.5 FL (6.5-10.1) L Neutrophils (%) (Auto) 54.8 % (45.0-75.0) Lymphocytes (%) (Auto) 31.4 % (20.0-45.0) Monocytes (%) (Auto) 7.1 % (1.0-10.0) Eosinophils (%) (Auto) 4.3 % (0.0-3.0) H Basophils (%) (Auto) 2.4 % (0.0-2.0) H Prothrombin Time 9.5 SEC (9.30-11.50) Prothromb Time International Ratio 0.9 (0.9-1.1) Activated Partial Thromboplast Time 26 SEC (23-33) Sodium Level 141 MMOL/L (136-145) Potassium Level 4.8 MMOL/L (3.5-5.1) Chloride Level 107 MMOL/L (98-107) Carbon Dioxide Level 23 MMOL/L (21-32) Anion Gap 11 mmol/L (5-15) Blood Urea Nitrogen 14 mg/dL (7-18) Creatinine 0.8 MG/DL (0.55-1.30) Estimat Glomerular Filtration Rate > 60 mL/min (>60) Glucose Level 101 MG/DL (74-106) Calcium Level 8.8 MG/DL (8.5-10.1) Total Bilirubin 0.3 MG/DL (0.2-1.0) Aspartate Amino Transf (AST/SGOT) 37 U/L (15-37) Alanine Aminotransferase (ALT/SGPT) 28 U/L (12-78) Alkaline Phosphatase 112 U/L (46-116) Total Protein 8.0 G/DL (6.4-8.2) Albumin 2.9 G/DL (3.4-5.0) L Globulin 5.1 g/dL Albumin/Globulin Ratio 0.6 (1.0-2.7) L Current Medications Medications (Trade) Dose Ordered Sig/Traci Route PRN Reason Start Time Stop Time Status Last Admin Dose Admin Alprazolam (Xanax) 1 mg THREE TIMES A DAY PRN ORAL For Anxiety 08/03/17 22:00 08/10/17 21:59 08/03/17 23:00 Cefepime HCl 2 gm/ Dextrose 110 ml @ 220 mls/hr Q12HR@1000,2200 IVPB 08/03/17 22:00 08/10/17 21:59 08/04/17 13:52 Oxycodone/ Acetaminophen (Percocet 10/325) 1 tab Q4H PRN ORAL For Pain 08/03/17 22:00 08/10/17 21:59 08/04/17 09:22 Vancomycin HCl (Vanco rx to dose) 1 ea DAILY PRN MISC Per rx protocol 08/03/17 15:15 09/02/17 15:14 Vancomycin/Sodium Chloride 250 ml @ 166.667 mls/hr Q12H IVPB 08/03/17 22:00 08/08/17 21:59 08/04/17 12:22 Harvey Correa M.D. Aug 04, 2017 14:52
[2017-08-04] MEDS ORDERED: Tubing IV Secondary IV ONE (15:18)
[2017-08-04] MEDS ORDERED: NS 500ML ONE (15:18)
[2017-08-04 20:45] VITALS: BP 126/77
--- NOTE | 2017-08-04 22:30 | History and Physical Report ---
DATE OF ADMISSION: 08/03/2017 REASON FOR ADMISSION: Left lateral thigh with drainage. HISTORY OF PRESENT ILLNESS: The patient is a 62-year-old male, who is admitted for evaluation. The patient presented 2 weeks prior status post resection and closure of left thigh pressure ulcer. [facility], developed some drainage from the incision site. The patient transferred to the emergency room for further evaluation and surgical assessment. The patient's medications were reviewed. The patient is overall comfortable, seen by Infectious Disease, and seen by General Surgery. PAST MEDICAL HISTORY: Notable for the above, osteomyelitis in the femur, infected myositis, left thigh open wound, decubitus ulcer of the ischium, stage IV; and prior history of MRSA. MEDICATIONS: Reviewed. ALLERGIES: Reviewed. SOCIAL HISTORY: Recently transferred to a care home. PHYSICAL EXAMINATION: GENERAL: A well-developed male, paraplegic. VITAL SIGNS: Stable, blood pressure 112/78, pulse 63, respiratory rate 20, and O2 saturation 97%. HEENT: Overall negative. NECK: Supple. No adenopathy. LUNGS: Clear. Symmetric. CARDIAC: Normal S1 and S2. Regular rate and rhythm. ABDOMEN: Soft. Wounds noted. EXTREMITIES: Noted with significant atrophy in the lower extremities, paraplegia. LABORATORY AND DIAGNOSTIC DATA: Laboratory overall noted. MRI noted. IMPRESSION: 1. Status post surgical intervention. MRI notable for marked improvement of the posterior left thigh/buttock decubitus ulcer, probably associated with cellulitis. No definite abscess noted. 2. Mild anemia. RECOMMENDATIONS: 1. Supportive care. 2. ID clearance. 3. Ongoing wound care. 4. Follow by Surgery, recommend further, and once stable, proceed with discharge planning [facility] for [facility] care and wound care management. Sarbjit Smith M.D. DR: BIJAN JOB#: [id number] CC:
[2017-08-04] MEDS: ALPRAZolam 0.5mg tab ORAL PRN (23:04)
[2017-08-05] VITALS: BP 128/77
[2017-08-05 04:00] VITALS: BP 120/70
[2017-08-05 08:43] VITALS: BP 120/77
[2017-08-05] MEDS: Cefepime HCl 2 GM in D5W 110 ML IVPB SCH (10:00)
[2017-08-05] MEDS: Vancomycin 750mg/NS 250ml IVPB SCH (10:52)
[2017-08-05 12:29] VITALS: BP 92/61
--- NOTE | 2017-08-05 14:10 | General Progress Note ---
Assessment/Plan Assessment/Plan 1. Status post surgical intervention. cellulitis 2. Mild anemia. 3. paraplegia PLAN dc home doxy given wound jail dc follow up with Dr Pate Subjective Allergies: Coded Allergies: MEPERIDINE (Verified Allergy, Intermediate, nausea/vomiting, 07/12/17) Subjective d/w surgery and ID ok to dc Objective Last 24 Hour Vital Signs Date Time Temp Pulse Resp B/P (MAP) Pulse Ox O2 Delivery O2 Flow Rate FiO2 08/05/17 12:29 95.9 56 18 92/61 97 95.9 08/05/17 11:15 97.2 08/05/17 10:16 97.2 08/05/17 08:43 97.2 69 18 120/77 99 97.2 08/05/17 04:37 97.9 08/05/17 04:00 97.3 66 18 120/70 92 Room Air 97.3 08/05/17 00:00 97.9 66 18 128/77 98 Room Air 97.9 08/04/17 22:04 96.9 08/04/17 20:45 96.9 63 18 126/77 97 Room Air 96.9 08/04/17 15:25 97.3 Intake and Output 08/04/17 08/05/17 19:00 07:00 Intake Total 360 ml 360.000 ml Output Total 975 ml 1800 ml Balance -615 ml -1440.000 ml Intake Oral 360 ml IV Total 360.000 ml Output Urine Total 975 ml 1800 ml Laboratory Tests 08/05/17 09:30: Vancomycin Level Trough 10.3 Height (Feet): 5 Height (Inches): 5.00 Weight (Pounds): 165 Objective WDWN NAD clear breath sounds bilaterally without rhonchi or wheeze [id number] without MRG NABS nontender no HSM no CCE parplegic wound noted SP Sarbjit Wang MD Aug 05, 2017 14:10
[2017-08-05] MEDS ORDERED: VIBRAMYCIN100 MG ORAL (14:30)
--- NOTE | 2017-08-05 16:01 | Infectious Diseases Prog Note ---
Assessment/Plan Problems: (1) Infected wound Assessment & Plan: of the left lateral thigh with mild lymphatic drainage , and recent culture grew MRSA at the rehab facility, wound culture grew staph aureus which is real and diphtheroids sp which is colonization , blood culture is negative , will switch vancomycin to oral doxycycline , and stop cefepime empirically , MRI didn't show any abscess or fluids collection or osteomyelitis underneath it. will continue to follow patient at the wound care clinic with the wound care team , and make recommendations as necessary (2) Open wound of left thigh Assessment & Plan: S/P fasciocutaneous flap done last month, with H/O infection due to pseudomonas aeruginosa , MSSA was treated with meropenem for two weeks in the past with resolution of his infection completely . now on vancomycin and cefepime empirically for surgical site wound infection to MRSA pending final cultures (3) Paraplegia Assessment & Plan: continue off loading as needed to avoid pressure wounds in the future Subjective Constitutional: Reports: no symptoms HEENT: Reports: no symptoms Respiratory: Reports: no symptoms Breasts: Reports: no symptoms Cardiovascular: Reports: no symptoms Gastrointestinal/Abdominal: Reports: no symptoms Genitourinary: Reports: no symptoms Neurologic: Reports: no symptoms Psychiatric: Reports: no symptoms Skin: Reports: no symptoms Endocrine: Reports: no symptoms Hematologic: Reports: no symptoms Musculoskeletal: Reports: no symptoms Allergies: Coded Allergies: MEPERIDINE (Verified Allergy, Intermediate, nausea/vomiting, 07/12/17) Subjective he was doing well , awake and alert, denied any thigh pain, redness or swelling Objective Vital Signs Last 24 Hour Vital Signs Date Time Temp Pulse Resp B/P (MAP) Pulse Ox O2 Delivery O2 Flow Rate FiO2 08/05/17 15:10 95.9 08/05/17 12:29 95.9 56 18 92/61 97 95.9 08/05/17 11:15 97.2 08/05/17 10:16 97.2 08/05/17 08:43 97.2 69 18 120/77 99 97.2 08/05/17 04:37 97.9 08/05/17 04:00 97.3 66 18 120/70 92 Room Air 97.3 08/05/17 00:00 97.9 66 18 128/77 98 Room Air 97.9 08/04/17 22:04 96.9 08/04/17 20:45 96.9 63 18 126/77 97 Room Air 96.9 Height (Feet): 5 Height (Inches): 5.00 Weight (Pounds): 165 General Appearance: WD/WN, no acute distress, cachetic, other - paraplegic HEENT: normocephalic, atraumatic, anicteric, mucous membranes moist, PERRL, pharynx normal, supple, no JVD Respiratory/Chest: chest wall non-tender, lungs clear, normal breath sounds, no respiratory distress, no accessory muscle use Cardiovascular: normal peripheral pulses, normal rate, regular rhythm, no gallop/murmur, no JVD Abdomen: normal bowel sounds, soft, non tender, no organomegaly, non distended , no mass, no scars Genitourinary: normal external genitalia Extremities: no cyanosis, no clubbing Skin: no rash, no lesions, no ulcers, other - left lateral thigh surgical wound , with mild lymphatic drainage, no redness or erythema , no cellulitis Neurologic/Psychiatric: alert, oriented x 3 Lymphatic: no neck adenopathy Microbiology Date/Time Source Procedure Growth Status 08/03/17 16:45 Blood Blood Culture - Preliminary NO GROWTH AFTER 24 HOURS Resulted 08/03/17 16:30 Blood Blood Culture - Preliminary NO GROWTH AFTER 24 HOURS Resulted 08/03/17 16:50 Hip Left Gram Stain - Final Resulted 08/03/17 16:50 Wound Culture - Preliminary Staphylococcus Aureus Diphtheroids Resulted Laboratory Tests Test 08/05/17 09:30 Vancomycin Level Trough 10.3 ug/mL (5.0-12.0) Current Medications Medications (Trade) Dose Ordered Sig/Traci Route PRN Reason Start Time Stop Time Status Last Admin Dose Admin Alprazolam (Xanax) 1 mg THREE TIMES A DAY PRN ORAL For Anxiety 08/03/17 22:00 08/10/17 21:59 08/04/17 23:04 Cefepime HCl 2 gm/ Dextrose 110 ml @ 220 mls/hr Q12HR@1000,2200 IVPB 08/03/17 22:00 08/10/17 21:59 08/05/17 10:00 Oxycodone/ Acetaminophen (Percocet 10/325) 1 tab Q4H PRN ORAL For Pain 08/03/17 22:00 08/10/17 21:59 08/05/17 15:10 Vancomycin HCl (Vanco rx to dose) 1 ea DAILY PRN MISC Per rx protocol 08/03/17 15:15 09/02/17 15:14 Vancomycin/Sodium Chloride 250 ml @ 166.667 mls/hr Q12H IVPB 08/03/17 22:00 08/08/17 21:59 08/05/17 10:52 Harvey Correa M.D. Aug 05, 2017 16:01
--- NOTE | 2017-08-07 12:59 | Discharge Summary ---
Discharge Summary Discharge Summary _ DATE OF ADMISSION: 08/03/2017 DATE OF DISCHARGE: 08/05/2017 REASON FOR ADMISSION: 62 years old male with past medical history significant for left thigh stage 4 decubitus ulcer, s/p recent fasciocutaneous flap (done last month) with histrory of infection due to Pseudomonas Aeruginosa , MSSA, treated with meropenem for 2 weeks. After surgery [facility] . Later, at the [facility] patient however developed drainage from the incision site and was transferred to emergency room for further evaluation and surgical reassessment. Culture from drainage fluid grew MRSA. Upon presentation vital signs were stable, patient was afebrile. Laboratory workup revealed no leukocytosis mild anemia hemoglobin 11.4 hematocrit 36.3. Stable electrolytes and renal parameters liver enzymes. X-ray of the left hip revealed surgical hardware, reducing old healed left distal femoral fracture. No acute fracture or dislocations noted. No definite acute process. Patient was admitted with diagnosis of left thigh wound infection, anemia, paraplegia. CONSULTANTS: ID specialist Dr. Correa Plastic surgery Dr. Pate [facility] COURSE: ID specialist and plastic surgery consults were requested. Patient started on empiric antibiotics as per infectious disease specialist recommendations. Wound care provided. Plastic surgeon seen and evaluated the patient. No surgical intervention was necessary at this time. Clinical suspicion of abscess was low , however patient had a positive culture of the fluid to the [facility]. Plastic surgeon recommended to continue IV antibiotics and obtain MRI, MRI of the left thigh revealed no definite abscess. No definite marrow signal abnormality to suggest acute osteomyelitis . MRI also revealed marked improvement of previously demonstrated posterior left thigh/buttock decubitus ulcer and associated presumed cellulitis/phlegmon. ID closely followed. Recent culture of the left lateral thigh drainage fluid grew MRSA at the facility. Blood culture were negative. Patient initially was on intravenous vancomycin and cefepime. Cefepime and Vanco stopped. Patient was transitioned to oral doxycycline prior to discharge. Duration of antibiotics as per infectious disease doctor recommendations. Wound care provided as per plastic surgery recommendations .Continue off loading to avoid pressure ulcers in the future. Pain management provided. DVT prophylaxis provided. Home medications resumed.. Patient stabilized and was stable for discharge home FINAL DIAGNOSES: Infected wound left lateral thigh with MRSA Open wound of left thigh, status post recent fasciocutaneous flap with infection due to Pseudomonas Aeruginosa and MSSA, s/p treatment. Paraplegia Anemia DISCHARGE MEDICATIONS: See Medication Reconciliation list. DISCHARGE INSTRUCTIONS: Patient was discharged home, complete antibiotic course with oral antibiotics as recommended by infectious disease specialist; follow up with the wound clinic. I have been assigned to dictate discharge summary for this account. I was not involved in the patient's management. Aishwarya oFrtune NP Aug 07, 2017 12:59
== END 2017-08-05 17:15 | disposition home or self-care (01) | DRG 863 ==
LOC: EDBD 13:29 → EMR 15:57 → 4E 18:04 → EDBEDREQ 18:26 → 4W 19:06
DX: T81.4XXA Infection following a procedure, initial encounter (principal); G82.20 Paraplegia, unspecified; L03.116 Cellulitis of left lower limb; Y83.2 Surgical operation with anastomosis, bypass or graft as the cause of abnormal reaction of the patient, or of later complication, without mention of misadventure at the time of the procedure; L08.89 Other specified local infections of the skin and subcutaneous tissue; B95.62 Methicillin resistant Staphylococcus aureus infection as the cause of diseases classified elsewhere; B96.5 Pseudomonas (aeruginosa) (mallei) (pseudomallei) as the cause of diseases classified elsewhere; B95.61 Methicillin susceptible Staphylococcus aureus infection as the cause of diseases classified elsewhere; D64.9 Anemia, unspecified; Z88.8 Allergy status to other drugs, medicaments and biological substances; L89.899 Pressure ulcer of other site, unspecified stage
CPT/HCPCS: 36415; 73502; 80053; 80202; 85025; 85610; 85730; 87040; 87070; 87081; 87181; 87205; 99285; A9585

== ENCOUNTER 2017-08-08 14:09 | Outpatient (RCR) | payer BC ==
[~2017-08-08 14:09] MED LIST changes: +AUGMENTIN 500-1 EACH ORAL; +AUGMENTIN 875-1 EAC1 ORAL; +CIPRO500 MG PO; +MULTIVITAMINS1 EAC8 ORAL; +SANTYL TOPIC; +VIBRAMYCIN100 MG ORAL; +VITAMIN C250 MG ORAL; +ZINC10 MG ORAL
== END 2017-08-27 | disposition home or self-care (01) ==
LOC: WCC 14:09
DX: L89.224 Pressure ulcer of left hip, stage 4 (principal); L89.311 Pressure ulcer of right buttock, stage 1; G82.21 Paraplegia, complete; T81.31XA Disruption of external operation (surgical) wound, not elsewhere classified, initial encounter; X58.XXXA Exposure to other specified factors, initial encounter; Y92.9 Unspecified place or not applicable
CPT/HCPCS: 11042; G0463

== ENCOUNTER 2017-08-29 09:11 | Outpatient (RCR) | payer BC | END 2017-09-27 | disposition home or self-care (01) | LOC: WCC 09:11 | DX: L89.224 Pressure ulcer of left hip, stage 4 (principal); L89.312 Pressure ulcer of right buttock, stage 2; G82.21 Paraplegia, complete; T81.31XA Disruption of external operation (surgical) wound, not elsewhere classified, initial encounter; X58.XXXA Exposure to other specified factors, initial encounter; Y93.9 Activity, unspecified; Y92.9 Unspecified place or not applicable | CPT/HCPCS: 11042 ==

== ENCOUNTER 2017-10-17 11:43 | Outpatient (RCR) | payer BC | END 2017-10-28 | disposition home or self-care (01) | LOC: WCC 11:43 | DX: L89.224 Pressure ulcer of left hip, stage 4 (principal); L89.312 Pressure ulcer of right buttock, stage 2; G82.21 Paraplegia, complete; T81.31XA Disruption of external operation (surgical) wound, not elsewhere classified, initial encounter | CPT/HCPCS: 11042 ==

== ENCOUNTER 2017-11-14 13:26 | Outpatient (RCR) | payer BC ==
[2017-11-21] MEDS ORDERED: LEXAPRO20 MG ORAL (13:03)
[2017-11-21] MEDS ORDERED: CIPRO500 MG PO (13:05)
[2017-11-25] MEDS ORDERED: MULTIVITAM9 MG/15 M1 PO (11:16)
[2017-11-25] MEDS ORDERED: ASCORBIC ACID250 M1 ORAL (11:17)
[2017-11-25] MEDS ORDERED: HEPARIN SO5000 UNIT2 SUBQ (11:17)
[2017-11-25] MEDS ORDERED: ZOSYN 3.373.375 GM/1 IVPB (12:09)
== END 2017-11-27 | disposition home or self-care (01) ==
LOC: WCC 13:26
DX: L89.324 Pressure ulcer of left buttock, stage 4 (principal); L89.314 Pressure ulcer of right buttock, stage 4; G82.21 Paraplegia, complete; T81.31XA Disruption of external operation (surgical) wound, not elsewhere classified, initial encounter; X58.XXXA Exposure to other specified factors, initial encounter
CPT/HCPCS: 11042; 11043; 11046

== ENCOUNTER 2017-11-21 12:07 | Inpatient (IN) | payer BC ==
[~2017-11-21] VITALS: Ht 165.1 cm; Wt 80.7 kg
[2017-11-21] VITALS (9 sets, daily range): BP systolic 100–113; BP diastolic 55–67
[2017-11-21] MEDS ORDERED: EPINEPHrine 1mg/1ml Amp ONE (12:52)
[2017-11-21] MEDS ORDERED: Muri-Lube ONE (12:52)
[2017-11-21] MEDS ORDERED: Bacitracin Oint 15gm Tube TOPIC ONE (12:52)
[2017-11-21] MEDS ORDERED: Bacitracin 50000 Units Vial ONE (12:53)
[2017-11-21] MEDS ORDERED: Nitroglycerin 2% oint pkt TOPIC ONE (12:53)
[2017-11-21] MEDS ORDERED: Bupivacaine 0.5% Inj 30 ml vial INJ ONE (12:53)
[2017-11-21] MEDS ORDERED: LEXAPRO20 MG ORAL (13:03)
[2017-11-21] MEDS ORDERED: CIPRO500 MG PO (13:05)
[2017-11-21] MEDS ORDERED: fentaNYL 100 mcg/2 mL IV ONE (13:11)
[2017-11-21] MEDS ORDERED: Midazolam 2mg/2ml Inj ONE (13:11)
[2017-11-21] MEDS ORDERED: Propofol 200mg/20ml IV ONE (13:12)
[2017-11-21] MEDS ORDERED: Sodium Chloride 10ml vial INJ ONE (13:12)
[2017-11-21] MEDS ORDERED: Lidocaine 1% MPF 10mg/ml 5ml ONE (13:12)
[2017-11-21] MEDS ORDERED: Lidocaine 1% 10mg/ml/Epi 0.005mg/ml 30ml vial INJ ONE (13:56)
--- NOTE | 2017-11-21 13:56 | Pre-Procedure Note/Attestation ---
Pre-Procedure Note/Attestation Complete Prior to Procedure Planned Procedure: bilateral Procedure Narrative: Resection of bilateral ischial pressure ulcers with placement of wound vac Attestation I attest that I discussed the nature of the procedure; its benefits; risks and complications; and alternatives (and the risks and benefits of such alternatives ), prior to the procedure, with the patient (or the patient's legal phlebotomy services representative). I attest that, if there was a reasonable possibility of needing a blood transfusion, the patient (or the patient's legal phlebotomy services representative) was given the [facility] standardized written summary, pursuant to the Natanael Luis Eduardo Blood Safety Act ([place] Health and Safety Code # 1645, as amended). I attest that I re-evaluated the patient just prior to the surgery and that there has been no change in the patient's H&P, except as documented below: Elmer Pate MD Nov 21, 2017 13:56
[2017-11-21] MEDS ORDERED: NS Irrig 1000ml ONE (14:00)
[2017-11-21] MEDS ORDERED: LR 1000ml ONE (14:00)
[2017-11-21] MEDS ORDERED: Sterile Water Irrig 1000ml IRRIG ONE (14:00)
[2017-11-21] MEDS ORDERED: Zemuron 50mg/5ml Inj IV ONE (14:00)
[2017-11-21] MEDS ORDERED: ProvayBlue 5mg/ml 10ml amp INJ ONE (14:30)
[2017-11-21] MEDS ORDERED: LR 1000ml 1,000 ML IVLG SCH (14:48)
--- NOTE | 2017-11-21 14:59 | Anethesia Preoperative Eval ---
Anesthesia Pre-op PMH/ROS General Date of Evaluation: Nov 21, 2017 ASA Score: ASA 3 Mallampati Score Class I : Soft palate, uvula, fauces, pillars visible Class II: Soft palate, uvula, fauces visible Class III: Soft palate, base of uvula visible Class IV: Only hard plate visible Mallampati Classification: Class II Surgeon: Rio Diagnosis: Non healing bilateral ischial ulcers Surgical Procedure: Resection of ulcers Family History: no anesthesia problems Allergies: Coded Allergies: MEPERIDINE (Verified Allergy, Intermediate, nausea/vomiting, 07/12/17) Medications: see eMAR Past Medical History Cardiovascular: Denies: HTN, CAD, OR, valve dz, arrhythmia, other Pulmonary: Denies: asthma, COPD, RONAK, other Gastrointestinal/Genitourinary: Denies: GERD, CRI, ESRD, other Neurologic/Psychiatric: Denies: dementia, CVA, depression/anxiety, TIA, other Endocrine: Denies: DM, hypothyroidism, steroids, other HEENT: Denies: cataract (L), cataract (R), glaucoma, CIRCLE (L), CIRCLE (R), other Hematology/Immune: Reports: anemia, DVT Musculoskeletal/Integumentary: Denies: OA, RA, DJD, DDD, edema, other PMH Narrative: DVT, 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 Exam Physician Exam Last Vital Signs Date Time Temp Pulse Resp B/P (MAP) Pulse Ox O2 Delivery O2 Flow Rate FiO2 11/21/17 13:27 Room Air 11/21/17 13:19 97.6 60 20 103/58 (73) 97 97.6 Constitutional: NAD Neurologic: CN 2-12 intact, other - Paraplegia Cardiovascular: RRR, no M/R/G Respiratory: CTA Gastrointestinal: S/NT/ND Airway Exam Mallampati Score: Class II ROM: full Teeth: intact Anesthesia Pre-op A/P Labs Mildly anemic Studies Pre-op Studies: EKG - Sinus rhythm, no acute changes Risk Assessment & Plan Assessment: Paraplegic 62 year old male with non healing bilateral ischial ulcers Plan: GETA, opioids to cover his baseline use. Status Change Before Surgery: No Pre-Antibiotics Drug: Ancef 2 grams Given Within 1 Hr of Incision: Yes Time Given: 14:00 Natanael Oconnell MD Nov 21, 2017 14:59
[2017-11-21] MEDS ORDERED: LORazepam Inj 2mg/ml 1ml IV PRN (15:00)
[2017-11-21] MEDS ORDERED: Hydromorphone 0.5mg/0.5ml inj IVP PRN (15:00)
[2017-11-21] MEDS ORDERED: DiphenhydrAMINE 50mg/ml Inj IVP PRN (15:00)
--- NOTE | 2017-11-21 15:00 | Immediate Post-Op Evaluation ---
Immediate Post-Op Evalulation Immediate Post-Op Evalulation Procedure: Resection of bilateral non healing ischial ulcers Date of Evaluation: Nov 21, 2017 Time of Evaluation: 16:15 IV Fluids: 700 Estimated Blood Loss: 50 Blood Pressure Systolic: 107 Blood Pressure Diastolic: 59 Pulse Rate: 77 Respiratory Rate: 15 O2 Sat by Pulse Oximetry: 100 Temperature (Fahrenheit): 98.0 Pain Score (1-10): 0 Nausea: No Vomiting: No Complications No complication Patient Status: reacts, patent, extubated, none Hydration Status: adequate Drug: Ancef 2 grams Given Within 1 Hr of Incision: Yes Time Given: 14:00 Natanael Oconnell MD Nov 21, 2017 15:00
[2017-11-21] MEDS ORDERED: Bacitracin 50000 Units Vial IRRIG ONE (15:07)
[2017-11-21] MEDS ORDERED: NS Irrig 2000ml IRRIG ONE (15:08)
[2017-11-21] MEDS ORDERED: Bacitracin Irrig 2000ml IRRIG ONE (15:26)
--- NOTE | 2017-11-21 18:00 | Brief Operative Note ---
Immediate Post Operative Note Operative Note Pre-op Diagnosis: Bilateral ischial pressure ulcers Procedure: 1. Resection of left ischial pressure ulcer with ostectomy in preparation for flap closure, placement of negative pressure dressing. 2. Resection of right ischial pressure ulcer to muscle with primary closure. Post-op Diagnosis: same as pre-op Surgeon: Rio Anesthesiologist: Doroteo Anesthesia: general, local - 30cc 1% lidocaine with [id number] epi Specimen: yes Complications: none Condition: stable Fluids: IVF Estimated Blood Loss: minimal Drains: wound vac Implant(s) used?: No Elmer Pate MD Nov 21, 2017 18:00
[2017-11-21] MEDS ORDERED: Vancomycin 1250mg/D5W 250ml IVPB SCH (20:00)
[2017-11-21] MEDS: Heparin 5000 units/ml inj SUBQ SCH (20:11)
--- NOTE | 2017-11-21 20:45 | Operative Note - Dictated ---
DATE OF OPERATION: 11/21/2017 SURGEON: Elmer Pate M.D. ANESTHESIOLOGIST: Dr. Natanael Oconnell. PREOPERATIVE DIAGNOSIS: Bilateral ischial pressure ulcers. POSTOPERATIVE DIAGNOSIS: Bilateral ischial pressure ulcers. OPERATION: 1. Resection of left ischial pressure ulcer with ostectomy in preparation for flap closure, application of negative pressure dressing to the left ischial pressure ulcer. 2. Resection of right ischial pressure ulcer with primary closure. ANESTHESIA: General endotracheal anesthesia. OPERATIVE INDICTIONS: This is a 62-year-old male who is paraplegic and with a history of recurrent pressure ulcers of the trunk and lower extremities. He has had undergone a left flap closure of left ischial pressure ulcer most recently 5 months ago, but due to postoperative issues and noncompliance, he developed recurrence. In addition, he developed a pressure ulcer of his right ischium as well. He had been treated at the outpatient wound care center with a combination of serial debridements and topicals as well as offloading pads; however, his ulcers were progressing. It was determined that the best course of action to treat these progressing wounds would be to surgically resect them and either close them or prep them for closure in the future, but to have him on a Clinitron bed and then to be transferred to a intermediate facility on a Clinitron bed for more consistent offloading. Once this plan was agreed upon by the patient, he was medically cleared and is scheduled for elective surgery. OPERATIVE PROCEDURE: The patient was seen in the preoperative area and the operative plan again discussed and agreed upon. He was taken back to the operating room, and once he was intubated on his hospital bed, then he was placed in the prone position on gel pads and foams and once all pressure points were padded and secured, his buttock area and upper posterior thighs were prepped and draped in the usual sterile fashion. A 10 mL of 1% lidocaine with 1:200,000 epinephrine was injected in the right ischial ulcer and 20 mL in the left and once the time-out had been performed beginning on the right side, #15-blade was used to make the incision. This was carried down with electrocautery to resect the entire ulcer bed. This was confirmed as his ulcer beds were painted with methylene blue prior to beginning of the surgery. Once this was completed, it was noted that there was very little length in his ulcer as it measured only 3 cm x 6 cm x 1.5 cm and then there was very little tension. The skin and subcutaneous tissues were then undermined circumferentially above the level of the muscular fascia and then pulse irrigation of 1 liter of triple antibiotic solution was performed. The defect was closed primarily with a combination of 2-0 Vicryl sutures to Sherrie's level tissue followed by 3-0 Monocryl in the deep dermis and a 4-0 Prolene in a running horizontal mattress fashion. There was no tension closure. Attention was turned to the left side where a # 15 scalpel was used to incise the ulcer completely around the skin along the markings. This dissection proceeded down electrocautery for hemostasis purposes. The ulcer bed was completely resected and once the base was reached, it was down to bone. This bone was also ostectomized to achieve good bleeding. At this point, hemostasis was carefully obtained and then 3 liters of triple antibiotic solution was pulse irrigated into the space. At this point, the negative pressure dressing was placed by oh into the bed and then pad was applied laterally and it was connected to the machine, which was when turned on revealed no leaks and functioning well. At this point, the procedure was completed and then dressings were applied to the right ischial closure and then he was placed in the supine position on a Clinitron bed and extubated and taken to recovery in a stable condition. There were no complications. EBL was minimal. The patient tolerated the procedure well. Pathology includes the right and the left ischial pressure sores for permanent . Of note, the final dimensions of the wounds were on the left 6 x 5 x 4.5 cm and on the right was 3 x 6 x 1.5 cm. Elmer Pate M.D. DR: PATRICIA JOB#: [id number] CC:
[2017-11-21] MEDS: Piperacillin/Tazobactam 3.375 GM in D5W 110 ML IVPB SCH (22:01)
[2017-11-22] VITALS: BP 85/57
[2017-11-22 04:00] VITALS: BP 94/54
[2017-11-22] MEDS: Piperacillin/Tazobactam 3.375 GM in D5W 110 ML IVPB SCH ×3 (04:57→22:56)
[2017-11-22 08:00] VITALS: BP 119/62
[2017-11-22] MEDS: Vancomycin 750mg/NS 250ml IVPB SCH ×2 (08:40→20:12)
[2017-11-22] MEDS: Ascorbic Acid 500mg tab ORAL SCH ×2 (08:40→17:28)
[2017-11-22] MEDS: ALPRAZolam 0.5mg tab ORAL SCH ×3 (08:41→17:28)
[2017-11-22] MEDS: Multivitamins W/Minerals 15 ML UDC ORAL SCH (08:41)
[2017-11-22] MEDS: Heparin 5000 units/ml inj SUBQ SCH ×2 (09:00→20:13)
--- NOTE | 2017-11-22 09:22 | 48 Hour Post Anesthesia Eval ---
Post Anesthesia Evaluation Procedure: Resection of bilateral non healing ischial ulcers Date of Evaluation: Nov 22, 2017 Time of Evaluation: 14:15 Blood Pressure Systolic: 137 0: 65 Pulse Rate: 76 Respiratory Rate: 18 Temperature (Fahrenheit): 98.4 O2 Sat by Pulse Oximetry: 100 Airway: patent Nausea: No Vomiting: No Pain Intensity: 0 If pain is > 6 Comment: 0 Hydration Status: adequate Cardiopulmonary Status: Stable Mental Status/LOC: patient returned to baseline Follow-up Care/Observations: As per surgery Post-Anesthesia Complications: No anesthetic complication Follow-up care needed: N/A Natanael Oconnell MD Nov 22, 2017 09:22
[2017-11-22 11:09] LABS: BASOPHILS % (AUTO) 1.1 % (0.0-2.0); EOSINOPHILS % (AUTO) 0.7 % (0.0-3.0); HEMATOCRIT 29.2 % (42.0-52.0); LYMPHOCYTES % (AUTO) 8.1 % (20.0-45.0); MEAN CORPUSCULAR VOLUME 81 FL (80-99); NEUTROPHILS % (AUTO) 83.1 % (45.0-75.0); PLATELET COUNT 660 K/UL (150-450); RED BLOOD COUNT 3.59 M/UL (4.70-6.10); RED CELL DISTRIBUTION WIDTH 15.1 % (11.6-14.8); WHITE BLOOD COUNT 9.2 K/UL (4.8-10.8)
[2017-11-22 12:00] VITALS: BP 103/64
--- NOTE | 2017-11-22 12:45 | History & Physical ---
History and Physical History & Physicial 62-year-old male, who is admitted for surgical intervention. The patient with prior resection and closure of left thigh pressure ulcer. The patient had been in the snf facility in the past, and has had prior infections. The patient's medications were reviewed. The patient is overall comfortable, post op at present and has pain PAST MEDICAL HISTORY: Notable for the above, osteomyelitis in the femur, infected myositis, left thigh open wound, decubitus ulcer of the ischium, stage IV; and prior history of MRSA. MEDICATIONS: Reviewed. ALLERGIES: Reviewed. SOCIAL HISTORY: disabled; nonambulatory PHYSICAL EXAMINATION: GENERAL: A well-developed male, paraplegic. VITAL SIGNS: reviewed and stable HEENT: Overall negative. NECK: Supple. No adenopathy. LUNGS: Clear. Symmetric. without rhonchi or wheze CARDIAC: Normal S1 and S2. Regular rate and rhythm. ABDOMEN: Soft. Wounds noted. EXTREMITIES: Noted with significant atrophy in the lower extremities, paraplegia. wound noted LABORATORY AND DIAGNOSTIC DATA: Labs Test 11/22/17 10:55 White Blood Count 9.2 K/UL (4.8-10.8) Red Blood Count 3.59 M/UL (4.70-6.10) Hemoglobin 9.0 G/DL (14.2-18.0) Hematocrit 29.2 % (42.0-52.0) Mean Corpuscular Volume 81 FL (80-99) Mean Corpuscular Hemoglobin 25.0 PG (27.0-31.0) Mean Corpuscular Hemoglobin Concent 30.7 G/DL (32.0-36.0) Red Cell Distribution Width 15.1 % (11.6-14.8) Platelet Count 660 K/UL (150-450) Mean Platelet Volume 4.6 FL (6.5-10.1) Neutrophils (%) (Auto) 83.1 % (45.0-75.0) Lymphocytes (%) (Auto) 8.1 % (20.0-45.0) Monocytes (%) (Auto) 7.0 % (1.0-10.0) Eosinophils (%) (Auto) 0.7 % (0.0-3.0) Basophils (%) (Auto) 1.1 % (0.0-2.0) IMPRESSION: Bilateral ischial pressure ulcers Resection of left ischial pressure ulcer with ostectomy in preparation for flap closure, placement of negative pressure dressing. Resection of right ischial pressure ulcer to muscle with primary closure. prior wound infection postoperative pain PLAN supportive care pain management wound care SNF placement surgical follow up taking po impression, plan, and exam edited and reviewed in detail care discussed with Sarbjit Bee MD Nov 22, 2017 12:45
[2017-11-22 16:00] VITALS: BP 95/60
[2017-11-22 20:00] VITALS: BP 100/52
[2017-11-23] VITALS: BP 106/62
[2017-11-23 03:57] VITALS: BP 119/59
[2017-11-23] MEDS: Piperacillin/Tazobactam 3.375 GM in D5W 110 ML IVPB SCH ×3 (04:07→21:23)
[2017-11-23 07:47] VITALS: BP 102/53
[2017-11-23] MEDS: Vancomycin 750mg/NS 250ml IVPB SCH (08:29)
[2017-11-23] MEDS: Multivitamins W/Minerals 15 ML UDC ORAL SCH (08:32)
[2017-11-23] MEDS: Ascorbic Acid 500mg tab ORAL SCH ×2 (08:32→17:53)
[2017-11-23] MEDS: ALPRAZolam 0.5mg tab ORAL SCH ×3 (08:32→17:53)
[2017-11-23] MEDS: Heparin 5000 units/ml inj SUBQ SCH ×2 (08:33→21:24)
[2017-11-23 11:39] VITALS: BP 96/59
--- NOTE | 2017-11-23 13:20 | General Progress Note ---
Assessment/Plan Problem List: (1) Open wound of thigh, complicated ICD Codes: S71.109A - Unspecified open wound, unspecified thigh, initial encounter SNOMED: 534290409 (2) Infective myositis, left thigh ICD Codes: M60.052 - Infective myositis, left thigh SNOMED: 176640167 (3) Infected wound ICD Codes: T79.8XXA - Infected wound SNOMED: 14738491 (4) Paraplegia ICD Codes: G82.20 - Paraplegia SNOMED: 60438877 Status: stable Assessment/Plan wound care skin care dc planning when cleared by plastics Subjective ROS Limited/Unobtainable: No Constitutional: Reports: malaise, weakness HEENT: Reports: no symptoms Cardiovascular: Reports: no symptoms Respiratory: Reports: no symptoms Gastrointestinal/Abdominal: Reports: no symptoms Genitourinary: Reports: no symptoms Neurologic/Psychiatric: Reports: pre-existing deficit Endocrine: Reports: no symptoms Hematologic/Lymphatic: Reports: no symptoms Allergies: Coded Allergies: MEPERIDINE (Verified Allergy, Intermediate, nausea/vomiting, 07/12/17) All Systems: reviewed and negative except above Subjective s/p wound debridement/coluse. wants to go home. no pain Objective Last 24 Hour Vital Signs Date Time Temp Pulse Resp B/P (MAP) Pulse Ox O2 Delivery O2 Flow Rate FiO2 11/23/17 11:39 97.7 64 17 96/59 (71) 98 97.7 11/23/17 09:00 Room Air 11/23/17 08:31 97.7 11/23/17 07:47 97.7 67 18 102/53 (69) 96 97.7 11/23/17 04:38 99.6 11/23/17 04:08 99.6 11/23/17 03:57 99.6 82 18 119/59 (79) 97 99.6 11/23/17 00:00 99.0 80 20 106/62 (77) 97 99.0 11/22/17 21:03 Room Air 11/22/17 20:21 98.1 11/22/17 20:00 97.9 76 20 100/52 (68) 99 97.9 11/22/17 16:00 98.1 71 18 95/60 (72) 97 98.1 Intake and Output 11/22/17 11/23/17 19:00 07:00 Intake Total 667.500 ml 442.500 ml Output Total 500 ml Balance 167.500 ml 442.500 ml Intake Oral 280 ml IV Total 387.500 ml 442.500 ml Output Urine Total 500 ml Laboratory Tests 11/23/17 07:15: Vancomycin Level Trough 10.2 Height (Feet): 5 Height (Inches): 5.00 Weight (Pounds): 178 General Appearance: WD/WN, alert Neck: supple Cardiovascular: normal rate Respiratory/Chest: lungs clear Abdomen: normal bowel sounds, non tender, soft, no organomegaly Jarek Edwards MD Nov 23, 2017 13:20
[2017-11-23 16:00] VITALS: BP_SYST 114; BP_SYST 96; BP_DIAS 56; BP_DIAS 65
[2017-11-23] MEDS: Vancomycin 1gm in D5W 275ml IVPB SCH (17:53)
[2017-11-23 20:00] VITALS: BP 118/74
[2017-11-24] VITALS: BP 99/68
[2017-11-24] MEDS: Vancomycin 1gm in D5W 275ml IVPB SCH ×2 (03:50→16:29)
[2017-11-24 04:00] VITALS: BP 107/59
[2017-11-24] MEDS: Piperacillin/Tazobactam 3.375 GM in D5W 110 ML IVPB SCH ×3 (05:51→21:42)
[2017-11-24 08:00] VITALS: BP 107/60
[2017-11-24] MEDS: Ascorbic Acid 500mg tab ORAL SCH ×2 (08:35→17:24)
[2017-11-24] MEDS: Multivitamins W/Minerals 15 ML UDC ORAL SCH (08:35)
[2017-11-24] MEDS: ALPRAZolam 0.5mg tab ORAL SCH ×3 (08:36→17:24)
[2017-11-24] MEDS: Heparin 5000 units/ml inj SUBQ SCH ×2 (08:36→21:50)
[2017-11-24 12:00] VITALS: BP 101/57
[2017-11-24 15:59] VITALS: BP 109/68
--- NOTE | 2017-11-24 18:06 | General Progress Note ---
Assessment/Plan Problem List: (1) Open wound of thigh, complicated ICD Codes: S71.109A - Unspecified open wound, unspecified thigh, initial encounter SNOMED: 212993210 (2) Infective myositis, left thigh ICD Codes: M60.052 - Infective myositis, left thigh SNOMED: 921767940 (3) Infected wound ICD Codes: T79.8XXA - Infected wound SNOMED: 32558345 (4) Paraplegia ICD Codes: G82.20 - Paraplegia SNOMED: 01168463 Status: stable, progressing Assessment/Plan wound care skin care dc planning when klinitron bed delivered to snf Subjective ROS Limited/Unobtainable: No Constitutional: Reports: malaise, weakness HEENT: Reports: no symptoms Cardiovascular: Reports: no symptoms Respiratory: Reports: no symptoms Gastrointestinal/Abdominal: Reports: no symptoms Genitourinary: Reports: no symptoms Neurologic/Psychiatric: Reports: pre-existing deficit, seizure Endocrine: Reports: no symptoms Hematologic/Lymphatic: Reports: no symptoms Allergies: Coded Allergies: MEPERIDINE (Verified Allergy, Intermediate, nausea/vomiting, 07/12/17) All Systems: reviewed and negative except above Subjective no events. awaiting klinitron bed at [facility]. no new complaints. Objective Last 24 Hour Vital Signs Date Time Temp Pulse Resp B/P (MAP) Pulse Ox O2 Delivery O2 Flow Rate FiO2 11/24/17 15:59 97.4 68 19 109/68 (82) 99 97.4 11/24/17 12:00 97.6 69 18 101/57 (72) 97 97.6 11/24/17 09:00 Room Air 11/24/17 08:00 97.2 70 19 107/60 (76) 97 97.2 11/24/17 04:00 97.7 65 17 107/59 (75) 96 97.7 11/24/17 00:00 97.0 72 17 99/68 (78) 97 97.0 11/23/17 21:00 Room Air 11/23/17 20:00 97.3 78 20 118/74 (89) 97 97.3 11/23/17 19:00 97.5 11/23/17 18:30 97.5 Intake and Output 11/23/17 11/24/17 19:00 07:00 Intake Total 1307.5 ml 504.916 ml Output Total 1000 ml 1500 ml Balance 307.5 ml -995.084 ml Intake Oral 1280 ml IV Total 27.5 ml 504.916 ml Output Urine Total 1000 ml 1500 ml # Bowel Movements 2 Height (Feet): 5 Height (Inches): 5.00 Weight (Pounds): 178 Objective General Appearance: WD/WN, alert Neck: supple Cardiovascular: normal rate Respiratory/Chest: lungs clear Abdomen: normal bowel sounds, non tender, soft, no organomegaly Jarek Edwards MD Nov 24, 2017 18:06
[2017-11-24 20:00] VITALS: BP 123/68
[2017-11-25] VITALS: BP 110/58
[2017-11-25] MEDS: Vancomycin 1gm in D5W 275ml IVPB SCH (03:53)
[2017-11-25 04:00] VITALS: BP 118/73
[2017-11-25] MEDS: Piperacillin/Tazobactam 3.375 GM in D5W 110 ML IVPB SCH ×2 (06:10→13:18)
[2017-11-25 08:00] VITALS: BP 109/52
--- NOTE | 2017-11-25 08:12 | General Progress Note ---
Assessment/Plan Assessment/Plan IMPRESSION: Bilateral ischial pressure ulcers Resection of left ischial pressure ulcer with ostectomy in preparation for flap closure, placement of negative pressure dressing. Resection of right ischial pressure ulcer to muscle with primary closure. prior wound infection postoperative pain PLAN supportive care pain management wound care as is SNF placement dc sheltono ? thais villalba impression, plan, and exam edited and reviewed in detail care discussed with RN Subjective Allergies: Coded Allergies: MEPERIDINE (Verified Allergy, Intermediate, nausea/vomiting, 07/12/17) Subjective stable awaiting snf Objective Last 24 Hour Vital Signs Date Time Temp Pulse Resp B/P (MAP) Pulse Ox O2 Delivery O2 Flow Rate FiO2 11/25/17 04:00 97.8 70 18 118/73 (88) 98 97.8 11/25/17 00:00 97.7 72 18 110/58 (75) 97 97.7 11/24/17 21:00 Room Air 11/24/17 20:19 97.9 11/24/17 20:00 97.9 68 20 123/68 (86) 100 97.9 11/24/17 15:59 97.4 68 19 109/68 (82) 99 97.4 11/24/17 12:00 97.6 69 18 101/57 (72) 97 97.6 11/24/17 09:00 Room Air Intake and Output 11/24/17 11/25/17 19:00 07:00 Intake Total 827.500 ml 385.000 ml Output Total 600 ml 1135 ml Balance 227.500 ml -750.000 ml Intake Oral 360 ml IV Total 467.500 ml 385.000 ml Output Urine Total 600 ml 1100 ml Drainage Total 35 ml # Bowel Movements 1 1 Labs Test 11/22/17 10:55 11/23/17 07:15 White Blood Count 9.2 K/UL (4.8-10.8) Red Blood Count 3.59 M/UL (4.70-6.10) Hemoglobin 9.0 G/DL (14.2-18.0) Hematocrit 29.2 % (42.0-52.0) Mean Corpuscular Volume 81 FL (80-99) Mean Corpuscular Hemoglobin 25.0 PG (27.0-31.0) Mean Corpuscular Hemoglobin Concent 30.7 G/DL (32.0-36.0) Red Cell Distribution Width 15.1 % (11.6-14.8) Platelet Count 660 K/UL (150-450) Mean Platelet Volume 4.6 FL (6.5-10.1) Neutrophils (%) (Auto) 83.1 % (45.0-75.0) Lymphocytes (%) (Auto) 8.1 % (20.0-45.0) Monocytes (%) (Auto) 7.0 % (1.0-10.0) Eosinophils (%) (Auto) 0.7 % (0.0-3.0) Basophils (%) (Auto) 1.1 % (0.0-2.0) Vancomycin Level Trough 10.2 ug/mL (5.0-12.0) Height (Feet): 5 Height (Inches): 5.00 Weight (Pounds): 178 Objective WDWN NAD clear breath sounds bilaterally without rhonchi or wheeze [id number] without MRG NABS nontender no HSM no CCE paraplegic wound noted Sarbjit Smith MD Nov 25, 2017 08:12
[2017-11-25] MEDS: Ascorbic Acid 500mg tab ORAL SCH ×2 (09:08→17:27)
[2017-11-25] MEDS: ALPRAZolam 0.5mg tab ORAL SCH ×3 (09:08→17:33)
[2017-11-25] MEDS: Multivitamins W/Minerals 15 ML UDC ORAL SCH (09:08)
[2017-11-25] MEDS: Heparin 5000 units/ml inj SUBQ SCH ×2 (09:10→21:32)
[2017-11-25] MEDS ORDERED: MULTIVITAM9 MG/15 M1 PO (11:16)
[2017-11-25] MEDS ORDERED: ASCORBIC ACID250 M1 ORAL (11:17)
[2017-11-25] MEDS ORDERED: HEPARIN SO5000 UNIT2 SUBQ (11:17)
[2017-11-25 12:00] VITALS: BP 128/73
[2017-11-25] MEDS ORDERED: ZOSYN 3.373.375 GM/1 IVPB (12:09)
[2017-11-25 16:00] VITALS: BP 119/78
[2017-11-25 20:00] VITALS: BP 120/69
[2017-11-25] MEDS ORDERED: 1/2 NS 1000ml IV ONE (22:49)
[2017-11-25] MEDS ORDERED: Tubing IV Secondary IV ONE (22:49)
--- NOTE | 2017-11-28 11:59 | Discharge Summary ---
Discharge Summary Discharge Summary _ DATE OF ADMISSION: 11/21/2017 DATE OF DISCHARGE:11/25/2017 REASON FOR ADMISSION: 62 years old male with history of bilateral ischial pressure ulcers, osteomyelitis, paraplegia admitted for surgical intervention. CONSULTANTS: surgery Dr. Pate [facility] COURSE: Patient undergone on 11/21 resection of left and right ischial pressure ulcers. Wound care provided as per surgeon's recommendation. Pain management was addressed , and pain was controlled. Patient was on empiric antibiotics. DVT prophylaxis provided. Nutritional support provided. Supportive care provided. Bowel regimen instituted. Patient was subsequently ready for discharge to long term facility for continuation of care FINAL DIAGNOSES: Bilateral ischial pressure ulcer Open wound of thigh , complicated Infective myositis left thigh Status post resection left and right ischial pressure ulcer Paraplegia Postoperative pain DISCHARGE MEDICATIONS: See Medication Reconciliation list. DISCHARGE INSTRUCTIONS: Patient was discharged to the long term facility. Follow up with medical doctor at the facility. I have been assigned to dictate discharge summary for this account. I was not involved in the patient's management. Aishwarya Fortune NP Nov 28, 2017 11:59
== END 2017-11-25 22:50 | DRG 571 ==
LOC: SDSOVERFLO 12:07 → 4E 18:31
PROC: 0QB30ZZ Excision of Left Pelvic Bone, Open Approach (ICD-10-PCS; principal; 2017-11-21 13:30)
PROC: 0JB90ZZ Excision of Buttock Subcutaneous Tissue and Fascia, Open Approach (ICD-10-PCS; principal; 2017-11-21 13:30)
DX: L89.329 Pressure ulcer of left buttock, unspecified stage (principal); M60.052 Infective myositis, left thigh; G82.20 Paraplegia, unspecified; L89.319 Pressure ulcer of right buttock, unspecified stage; S71.109A Unspecified open wound, unspecified thigh, initial encounter; X58.XXXA Exposure to other specified factors, initial encounter; G89.18 Other acute postprocedural pain; Z86.14 Personal history of Methicillin resistant Staphylococcus aureus infection; S71.102A Unspecified open wound, left thigh, initial encounter
CPT/HCPCS: 36415; 80202; 85025; 87081; 94003; 94150; J2250; J2405

== ENCOUNTER 2017-12-26 10:22 | Outpatient (RCR) | payer BC ==
[~2017-12-26 10:22] MED LIST changes: +ASCORBIC ACID250 M1 ORAL; +LEXAPRO20 MG ORAL; +MULTIVITAM9 MG/15 M1 PO; +ZOSYN 3.373.375 GM/1 IVPB
== END 2017-12-28 | disposition home or self-care (01) ==
LOC: WCC 10:22
DX: L89.324 Pressure ulcer of left buttock, stage 4 (principal); G82.21 Paraplegia, complete
CPT/HCPCS: 11044; 11047; 97605

== ENCOUNTER 2018-01-02 11:38 | Outpatient (RCR) | payer BC | END 2018-01-27 | disposition home or self-care (01) | LOC: WCC 11:38 | DX: L89.324 Pressure ulcer of left buttock, stage 4 (principal); G82.21 Paraplegia, complete; L89.311 Pressure ulcer of right buttock, stage 1 | CPT/HCPCS: 11044; 11047; 97605 ==

== ENCOUNTER 2018-01-30 09:50 | Outpatient (RCR) | payer BC | END 2018-02-27 | disposition home or self-care (01) | LOC: WCC 09:50 | DX: L89.324 Pressure ulcer of left buttock, stage 4 (principal); G82.21 Paraplegia, complete; L89.311 Pressure ulcer of right buttock, stage 1; L89.510 Pressure ulcer of right ankle, unstageable | CPT/HCPCS: 11043; 97605 ==

== ENCOUNTER 2018-03-20 10:09 | Outpatient (RCR) | payer BC | END 2018-03-30 | disposition home or self-care (01) | LOC: WCC 10:09 | DX: L89.324 Pressure ulcer of left buttock, stage 4 (principal); G82.21 Paraplegia, complete; L89.311 Pressure ulcer of right buttock, stage 1; L89.510 Pressure ulcer of right ankle, unstageable; L89.612 Pressure ulcer of right heel, stage 2 | CPT/HCPCS: 11043; 11044; 97605 ==

== ENCOUNTER 2018-04-24 10:00 | Outpatient (RCR) | payer BC | END 2018-04-27 | disposition home or self-care (01) | LOC: WCC 10:00 | DX: L89.324 Pressure ulcer of left buttock, stage 4 (principal); G82.21 Paraplegia, complete; L89.311 Pressure ulcer of right buttock, stage 1; L89.510 Pressure ulcer of right ankle, unstageable; L89.612 Pressure ulcer of right heel, stage 2; Z79.01 Long term (current) use of anticoagulants | CPT/HCPCS: 11043; 97605 ==

== ENCOUNTER 2018-05-01 10:36 | Outpatient (RCR) | payer BC | END 2018-05-28 | disposition home or self-care (01) | LOC: WCC 10:36 | DX: L89.324 Pressure ulcer of left buttock, stage 4 (principal); G82.21 Paraplegia, complete; L89.311 Pressure ulcer of right buttock, stage 1; L89.510 Pressure ulcer of right ankle, unstageable; L89.612 Pressure ulcer of right heel, stage 2; Z79.01 Long term (current) use of anticoagulants | CPT/HCPCS: 11043 ==

== ENCOUNTER 2018-05-29 08:35 | Outpatient (RCR) | payer BC | END 2018-06-27 | disposition home or self-care (01) | LOC: WCC 08:35 | DX: L03.115 Cellulitis of right lower limb (principal); L97.815 Non-pressure chronic ulcer of other part of right lower leg with muscle involvement without evidence of necrosis; E11.42 Type 2 diabetes mellitus with diabetic polyneuropathy; I73.89 Other specified peripheral vascular diseases; G99.0 Autonomic neuropathy in diseases classified elsewhere; Z89.421 Acquired absence of other right toe(s); Z88.6 Allergy status to analgesic agent; Z95.5 Presence of coronary angioplasty implant and graft; E78.5 Hyperlipidemia, unspecified; I25.2 Old myocardial infarction; Z79.899 Other long term (current) drug therapy ==

== ENCOUNTER 2018-08-28 10:43 | Outpatient (RCR) | payer BC | END 2018-09-27 | disposition home or self-care (01) | LOC: WCC 10:43 | DX: L89.324 Pressure ulcer of left buttock, stage 4 (principal); L89.313 Pressure ulcer of right buttock, stage 3; L89.154 Pressure ulcer of sacral region, stage 4; M86.09 Acute hematogenous osteomyelitis, multiple sites; G82.20 Paraplegia, unspecified; Z79.899 Other long term (current) drug therapy | CPT/HCPCS: 11042; 11043 ==

== ENCOUNTER 2018-10-09 12:41 | Outpatient (RCR) | payer BC | END 2018-10-28 | disposition home or self-care (01) | LOC: WCC 12:41 | DX: L89.324 Pressure ulcer of left buttock, stage 4 (principal); L89.313 Pressure ulcer of right buttock, stage 3; L89.153 Pressure ulcer of sacral region, stage 3; M86.09 Acute hematogenous osteomyelitis, multiple sites; Z79.899 Other long term (current) drug therapy | CPT/HCPCS: 11043; 11046; 20245; 87070; 87181; 87205 ==

== ENCOUNTER 2018-11-06 10:32 | Outpatient (RCR) | payer BC | END 2018-11-27 | disposition home or self-care (01) | LOC: WCC 10:32 | DX: L89.324 Pressure ulcer of left buttock, stage 4 (principal); L89.313 Pressure ulcer of right buttock, stage 3; L89.153 Pressure ulcer of sacral region, stage 3; M86.09 Acute hematogenous osteomyelitis, multiple sites; L89.152 Pressure ulcer of sacral region, stage 2; G82.20 Paraplegia, unspecified; Z79.899 Other long term (current) drug therapy | CPT/HCPCS: 11042; 11044; 11047; 87070; 87181; 87205 ==

== ENCOUNTER 2018-12-18 10:21 | Outpatient (RCR) | payer BC | END 2018-12-28 | disposition home or self-care (01) | LOC: WCC 10:21 | DX: L89.324 Pressure ulcer of left buttock, stage 4 (principal); L89.313 Pressure ulcer of right buttock, stage 3; L89.153 Pressure ulcer of sacral region, stage 3; M86.09 Acute hematogenous osteomyelitis, multiple sites; L89.152 Pressure ulcer of sacral region, stage 2; G82.20 Paraplegia, unspecified | CPT/HCPCS: 11042; 11044; 11047 ==

== ENCOUNTER 2019-01-01 10:20 | Outpatient (RCR) | payer BC ==
[2019-01-09] MEDS ORDERED: FLUCONAZOLE100 MG ORAL (11:38)
[2019-01-09] MEDS ORDERED: ALLOPURINOL100 M1 ORAL (11:38)
[2019-01-09] MEDS ORDERED: ZINC50 M1 ORAL (11:39)
[2019-01-09] MEDS ORDERED: OMEPRAZOLE20 M2 ORAL (11:40)
[2019-01-09] MEDS ORDERED: PROBIOTIC1 EAC5 PO (11:41)
[2019-01-09] MEDS ORDERED: BACTRIM DS TAB1 EAC1 ORAL (14:08)
== END 2019-01-27 | disposition home or self-care (01) ==
LOC: WCC 10:20
DX: L89.324 Pressure ulcer of left buttock, stage 4 (principal); L89.313 Pressure ulcer of right buttock, stage 3; L89.153 Pressure ulcer of sacral region, stage 3; M86.09 Acute hematogenous osteomyelitis, multiple sites; L89.152 Pressure ulcer of sacral region, stage 2; Z99.3 Dependence on wheelchair; G82.20 Paraplegia, unspecified; Z79.899 Other long term (current) drug therapy
CPT/HCPCS: 11042; 11044; 11047

== ENCOUNTER 2019-01-09 10:56 | Inpatient (IN) | payer BC ==
[2019-01-09] VITALS (11 sets, daily range): BP systolic 90–95; BP diastolic 52–56
[~2019-01-09] VITALS: Ht 165.1 cm; Wt 52.2 kg
[2019-01-09] MEDS ORDERED: ALLOPURINOL100 M1 ORAL (11:38)
[2019-01-09] MEDS ORDERED: FLUCONAZOLE100 MG ORAL (11:38)
[2019-01-09] MEDS ORDERED: ZINC50 M1 ORAL (11:39)
[2019-01-09] MEDS ORDERED: OMEPRAZOLE20 M2 ORAL (11:40)
[2019-01-09] MEDS ORDERED: PROBIOTIC1 EAC5 PO (11:41)
[2019-01-09] MEDS ORDERED: Bacitracin Oint 15gm Tube TOPIC ONE (11:55)
[2019-01-09] MEDS ORDERED: Bacitracin 50000 Units Vial ONE (11:55)
[2019-01-09] MEDS ORDERED: Muri-Lube ONE (11:55)
[2019-01-09] MEDS ORDERED: Lidocaine 1% 10mg/ml/Epi 0.005mg/ml 30ml vial INJ ONE ×2 (11:55→13:51)
[2019-01-09] MEDS ORDERED: Nitroglycerin 2% oint pkt TOPIC ONE (11:55)
[2019-01-09] MEDS ORDERED: fentaNYL 100 mcg/2 mL IV ONE (12:00)
[2019-01-09] MEDS ORDERED: NS Irrig 1000ml ONE (12:00)
[2019-01-09] MEDS ORDERED: Neostigmine 1mg/ml 10ml Inj ONE (12:00)
[2019-01-09] MEDS ORDERED: ProvayBlue 5mg/ml 10ml amp INJ ONE (12:00)
[2019-01-09] MEDS ORDERED: LR 1000ml ONE (12:00)
[2019-01-09] MEDS ORDERED: Sterile Water Irrig 1000ml IRRIG ONE (12:00)
[2019-01-09] MEDS ORDERED: Midazolam 2mg/2ml Inj ONE (12:01)
[2019-01-09] MEDS ORDERED: Propofol 200mg/20ml IV ONE (12:02)
[2019-01-09] MEDS ORDERED: Lidocaine 1% MPF 10mg/ml 5ml ONE (12:02)
[2019-01-09] MEDS ORDERED: Rocuronium Bromide 50mg/5ml Inj IV ONE ×2 (12:02→13:29)
--- NOTE | 2019-01-09 12:08 | Pre-Procedure Note/Attestation ---
Pre-Procedure Note/Attestation Complete Prior to Procedure Planned Procedure: left Procedure Narrative: Excision of left ischial pressure ulcer, ostectomy, flap closure Indications for Procedure Pre-Operative Diagnosis: Stage 4 pressure ulcer left ischium Attestation I attest that I discussed the nature of the procedure; its benefits; risks and complications; and alternatives (and the risks and benefits of such alternatives ), prior to the procedure, with the patient (or the patient's legal car sales representative). I attest that, if there was a reasonable possibility of needing a blood transfusion, the patient (or the patient's legal car sales representative) was given the [facility] standardized written summary, pursuant to the Natanael Coqui Blood Safety Act ([place] Health and Safety Code # 1645, as amended). I attest that I re-evaluated the patient just prior to the surgery and that there has been no change in the patient's H&P, except as documented below: Elmer Pate MD Jan 09, 2019 12:08
--- NOTE | 2019-01-09 13:40 | Anethesia Preoperative Eval ---
Anesthesia Pre-op PMH/ROS General Date of Evaluation: Jan 09, 2019 Time of Evaluation: 11:50 Anesthesiologist: Anne-Marie ASA Score: ASA 3 Mallampati Score Class I : Soft palate, uvula, fauces, pillars visible Class II: Soft palate, uvula, fauces visible Class III: Soft palate, base of uvula visible Class IV: Only hard plate visible Mallampati Classification: Class II Surgeon: Cristo Diagnosis: L hip chronic wound Surgical Procedure: Debridement and closure of L hip chronic wound Anesthesia History: none Family History: no anesthesia problems Allergies: Coded Allergies: MEPERIDINE (Verified Allergy, Intermediate, nausea/vomiting, 07/12/17) Medications: see eMAR Patient NPO?: Yes NPO Date: Jan 08, 2019 NPO Time: 1900 Past Medical History Cardiovascular: Denies: HTN, CAD, IA, valve dz, arrhythmia, other Pulmonary: Denies: asthma, COPD, RONAK, other Gastrointestinal/Genitourinary: Reports: GERD, other - diverting colostomy, suprapubic catheter. H/o UTI; Denies: CRI, ESRD Neurologic/Psychiatric: Reports: depression/anxiety, other - Paraplegic T12, chronic pain; Denies: dementia, CVA, TIA Endocrine: Denies: DM, hypothyroidism, steroids, other HEENT: Denies: cataract (L), cataract (R), glaucoma, [place] (L), NOO[place] (R), other Hematology/Immune: Reports: anemia - of chronic D-s; Denies: DVT, bleeding disorder, other Musculoskeletal/Integumentary: Reports: other - lower paraplegia; Denies: OA, RA, DJD, DDD, edema PMH Narrative: as above PSxH Narrative: Back Sx with fusion, colostomy multiple wound debridement Anesthesia Pre-op Phys. Exam Physician Exam Last Vital Signs Date Time Temp Pulse Resp B/P (MAP) Pulse Ox O2 Delivery O2 Flow Rate FiO2 01/09/19 12:35 Room Air 01/09/19 12:24 97.3 57 18 92/56 (68) 97 Constitutional: NAD Neurologic: CN 2-12 intact, other Cardiovascular: RRR Respiratory: CTA Gastrointestinal: S/NT/ND Airway Exam Mallampati Score: Class II MO: limited Neck: flexible ROM: limited Teeth: intact Dentures: no upper, no lower Anesthesia Pre-op A/P Labs see chart Studies Pre-op Studies: EKG - SR Risk Assessment & Plan Assessment: ASA 3 Plan: GA prone position ETT Status Change Before Surgery: No Pre-Antibiotics Drug: Ancef 1gr. Given Within 1 Hr of Incision: Yes Time Given: 13:10 Abram Xie MD Jan 09, 2019 13:40
[2019-01-09] MEDS ORDERED: LR 1000ml 1,000 ML IVLG SCH (13:41)
[2019-01-09] MEDS ORDERED: Hydromorphone 0.5mg/0.5ml inj IVP PRN (13:45)
[2019-01-09] MEDS ORDERED: DiphenhydrAMINE 50mg/ml Inj IVP PRN (13:45)
[2019-01-09] MEDS ORDERED: Midazolam 2mg/2ml Inj IVP PRN (13:45)
[2019-01-09] MEDS ORDERED: BACTRIM DS TAB1 EAC1 ORAL (14:08)
[2019-01-09] MEDS ORDERED: Morphine Sulfate 10mg/ml Inj ONE (14:58)
[2019-01-09] MEDS ORDERED: Sodium Chloride 10ml vial INJ ONE (14:58)
[2019-01-09] MEDS ORDERED: Glycopyrrolate 0.2mg/ml 1ml Vial ONE (14:59)
[2019-01-09] MEDS ORDERED: NS Irrig 4000ml IRRIG ONE (15:06)
--- NOTE | 2019-01-09 16:14 | Brief Operative Note ---
Immediate Post Operative Note Operative Note Pre-op Diagnosis: Stage 4 pressure ulcer left ischium Procedure: Resection of left ischial pressure ulcer with ostectomy and gluteal flap closure. Post-op Diagnosis: same as pre-op Surgeon: Rio Anesthesiologist: Anne-Marie Anesthesia: general Specimen: yes Complications: none Condition: stable Fluids: IVF Estimated Blood Loss: volume - 50 Drains: GLENDY Implant(s) used?: No Elmer Pate MD Jan 09, 2019 16:14
--- NOTE | 2019-01-09 16:19 | Immediate Post-Op Evaluation ---
Immediate Post-Op Evalulation Immediate Post-Op Evalulation Procedure: Debridement and closure of L hip chronic wound Date of Evaluation: Jan 09, 2019 Time of Evaluation: 16:19 IV Fluids: 1200 Blood Products: none Estimated Blood Loss: 50 Urinary Output: 600 Blood Pressure Systolic: 96 Blood Pressure Diastolic: 52 Pulse Rate: 72 Respiratory Rate: 20 O2 Sat by Pulse Oximetry: 99 Temperature (Fahrenheit): 97.7 Pain Score (1-10): 1 Nausea: No Vomiting: No Complications none Patient Status: reacts, patent, extubated, none Hydration Status: adequate Abram Xie MD Jan 09, 2019 16:19
--- NOTE | 2019-01-09 16:45 | NUR ---
NURSE NOTES: Received report from ECTOR Bryan from PACU. Pt arrived via Clinitron bed from PACU to room 315-1, accompanied by Promise.Pt is alert, awake, and oriented, on 2LNC, no apparent distress noted. VSS: T 97.6, P 64, RR 20, BP 93/54, SpO2 98%. GLENDY drainage on Left thigh, colostomy bag intact, suprapubic cath intact and draining clear, yellow urine. Left UA single lumen PICC line noted, intact, running fluids. SCDs on. Will continue to monitor. Belongings list signed by pt's Promise before coming up to the floor and belongings given to her.
[2019-01-09] MEDS: Cephalexin 500mg cap ORAL SCH (18:38)
--- NOTE | 2019-01-09 19:41 | NUR ---
Notified Dr. Smith and received admitting orders. RN will follow.
--- NOTE | 2019-01-09 19:41 | NUR ---
HAND-OFF: Report given to Ruthann RN.
[2019-01-09] MEDS ORDERED: ALPRAZolam 0.5mg tab ORAL SCH (19:45)
[2019-01-09] MEDS ORDERED: ALPRAZolam 0.5mg tab ORAL PRN (21:00)
--- NOTE | 2019-01-09 21:00 | NUR ---
NURSE NOTES: received pt. in [facility] bed. AAOx4 on nasal canula 2L/min. GLENDY drainage on Left thigh, colostomy bag intact and dry. suprapubic catheter placed prior to admitting. on left upper arm single lumen PICC line noted. call light within reach. bed is the lowest position. will continue to provide plan of care.
[2019-01-09] MEDS: Fluconazole 100mg tab ORAL SCH (21:07)
--- NOTE | 2019-01-09 21:45 | Operative Note - Dictated ---
DATE OF OPERATION: 01/09/2019 SURGEON: Elmer Pate M.D. ANESTHESIOLOGIST: Abram Xie M.D. PREOPERATIVE DIAGNOSIS: Stage IV left ischial pressure ulcer. POSTOPERATIVE DIAGNOSIS: Stage IV left ischial pressure ulcer. OPERATION PERFORMED: 1. Resection of stage IV left ischial pressure ulcer with ostectomy in preparation for fasciocutaneous flap. 2. Left gluteal fasciocutaneous rotation flap. ANESTHESIA: General endotracheal anesthesia. OPERATIVE INDICATIONS: This is a 63-year-old male who is paraplegic and has had a chronic nonhealing stage IV left ischial pressure ulcer. He had failed conservative nonsurgical wound management and had been treated for osteomyelitis with intravenous antibiotics. Once his nutrition was deemed to be adequate and he had no other active infection and the ulcer was stable, he was scheduled for elective surgery to resect and close the ulcer. Once he was medically cleared, he was scheduled for the surgery. OPERATIVE PROCEDURE: The patient was seen in the preop area and the operative plan was then discussed and agreed upon. IV was placed and the patient was taken to the operating room. He was intubated in his hospital bed and then placed on the operating table in the prone position on Gel-Foam, pillows and pads. Once all pressure points were padded, the surgical area was prepped and draped in usual sterile fashion. A time-out was performed. Methylene blue was used to stain the ulcer for ease of dissection. At this point, 30 mL of 1% lidocaine with 1:200,000 epinephrine was injected into the ulcer, and then after waiting an appropriate amount of time, a #15-blade was used to excise the ulcer nona-skin. This dissection proceeded with electrocautery to excise the entire ulcer en bloc and take it off the field. The ischial tuberosity was present and an ostectomy was performed to create a smoother edge, and in the process a bone biopsy was performed as well as bone culture for microbiology. At this point, three liters of triple antibiotic solution of Ancef, gentamicin, and bacitracin was used in the pulse irrigation system prior to closing the area. Once hemostasis was carefully obtained, the flap was designed that extended onto his left gluteal area. It was a large rotation fasciocutaneous flap design. The incision line was injected with 10 mL of 1% lidocaine with 1:200,000 epinephrine, and then after waiting appropriate amount of time, a #10 blade was used to make the incision. The incision was then deepened with electrocautery down to the gluteus major muscle. The flap was then elevated in a fasciocutaneous fashion off the gluteus muscle to achieve the rotation into the defect. Once the elevation was completed enough to get rotation around the pivot point with ease and no tension, the distal tip of the flap was excised to achieve a better contour. The gluteus muscle was then closed to the hamstring muscles inferiorly with a 2-0 Vicryl suture to close the deep space. A #15-Armenian fluted Osmany-Sanches drain was then placed into the inferior aspect of the wound and brought out through the lateral upper thigh and secured to the skin with a 2-0 nylon. The flap was tailor tacked into place and then the wound was closed with 2-0 Vicryl in the Sherrie's fascia layer followed by some intermittent 3-0 Monocryl in the deep dermis and 3-0 Prolene in a horizontal running mattress fashion in the skin with some intermittent 4-0 Monocryl sutures. The dressings were then applied followed by foam tape and the patient was then placed on a Clinitron bed in the supine position. He was then extubated and taken to recovery room in stable condition. There were no complications. EBL: 50 mL. URINE OUTPUT: 650 mL. The patient is stable. Elmer Pate M.D. DR: Kian JOB#: [id number] CC:
--- NOTE | 2019-01-09 22:45 | History and Physical Report ---
DATE OF ADMISSION: 01/09/2019 REASON FOR ADMISSION: Surgical intervention with resection of left ischial pressure ulcer with ostectomy and gluteal flap closure. HISTORY: This is a 63-year-old male, chronically debilitated. The patient has had prior admissions to the [facility] for nonhealing wounds. The patient has been followed by Dr. Pate for wound care management. The patient is admitted for the above-noted procedure. The patient has history of MRSA in the past. The patient's care was discussed and reviewed. I was asked to follow up postoperatively. The patient is currently doing well and in significant distress. This has been ongoing for some time and the patient has chronic disease. PAST MEDICAL HISTORY: Notable for gastroesophageal reflux disease, diverting colostomy, suprapubic catheter, paraplegia, and T12 chronic pain. PAST SURGICAL HISTORY: As above. Also with prior lumbar surgery and fusion, colostomy, and multiple wound debridements. MEDICATIONS: Reviewed. ALLERGIES: Reviewed. SOCIAL HISTORY: Nonsmoker and nondrinker. PHYSICAL EXAMINATION: GENERAL: A well-developed male, overall comfortable. VITAL SIGNS: Reviewed. Blood pressure 92/56, pulse 57, respirations 18, temperature 97.3, and sats 97% on room air. HEENT: Negative. Extraocular movements are grossly intact. NECK: Supple. LUNGS: Fairly clear and symmetric. CARDIAC: S1, S2. Regular rate and rhythm without murmurs, rubs, or gallops. ABDOMEN: Soft, nontender, and nondistended. EXTREMITIES: No edema. LABORATORY DATA: Reviewed. EKG essentially negative. Other laboratory data otherwise reviewed. IMPRESSION: Chronic non-healing wound of the left hip, status post debridement and closure. Other medical problems as discussed above. RECOMMENDATIONS: 1. Supportive care. 2. Offload. 3. Skin care. 4. Surgical follow-up. 5. Monitor for further changes and interventions. 6. Pain control as needed. 7. Resume home medications. 8. We will follow clinically and assist with disposition. Sarbjit Smith M.D. DR: SHARLA JOB#: [id number] CC:
[2019-01-10] VITALS: BP 98/54
[2019-01-10] MEDS: Cephalexin 500mg cap ORAL SCH ×5 (00:03→23:03)
--- NOTE | 2019-01-10 00:14 | NUR ---
NURSE NOTES: no dressing changes, no pictures taking on R. ischial ulcer site. d/t Dr. Pate ordered to change biotene dressing every other day beginning 01/11/19. for L. ischial pressure ulcer site cover 4x4 guaze, 3 abds, and foam tape. skin intact and dry. need to change the dressing daily after 01/11/19.
[2019-01-10 04:00] VITALS: BP 101/62
[2019-01-10 06:15] LABS: BASOPHILS % (AUTO) 0.6 % (0.0-2.0); EOSINOPHILS % (AUTO) 0.9 % (0.0-3.0); HEMATOCRIT 31.4 % (42.0-52.0); LYMPHOCYTES % (AUTO) 16.2 % (20.0-45.0); MEAN CORPUSCULAR VOLUME 90 FL (80-99); MONOCYTES % (AUTO) 9.7 % (1.0-10.0); NEUTROPHILS % (AUTO) 72.6 % (45.0-75.0); PLATELET COUNT 349 K/UL (150-450); RED CELL DISTRIBUTION WIDTH 18.4 % (11.6-14.8); WHITE BLOOD COUNT 8.2 K/UL (4.8-10.8)
[2019-01-10 06:40] LABS: ALANINE AMINOTRANSFERASE 21 U/L (12-78); ALBUMIN 2.8 G/DL (3.4-5.0); ALBUMIN/GLOBULIN RATIO 0.6 (1.0-2.7); ALKALINE PHOSPHATASE 120 U/L (46-116); ANION GAP 10 mmol/L (5-15); ASPARTATE AMINO TRANSFERASE 17 U/L (15-37); BILIRUBIN,TOTAL 0.3 MG/DL (0.2-1.0); BLOOD UREA NITROGEN 21 mg/dL (7-18); CALCIUM 8.8 MG/DL (8.5-10.1); CARBON DIOXIDE 25 MMOL/L (21-32); CHLORIDE 106 MMOL/L (98-107); CREATININE 0.6 MG/DL (0.55-1.30); POTASSIUM 4.3 MMOL/L (3.5-5.1); SODIUM 140 MMOL/L (136-145)
--- NOTE | 2019-01-10 06:59 | Plastic Surgery Progress Note ---
Plastic Surgery-Progress Note Subjective Procedure Performed Resection of left ischial pressure ulcer with ostectomy and gluteal flap closure. Additional Comments POD#1 s/p resection of left ischial ulcer with flap closure. Uneventful night. No complaints. Objective Last 24 Hour Vital Signs Date Time Temp Pulse Resp B/P (MAP) Pulse Ox O2 Delivery O2 Flow Rate FiO2 01/10/19 04:00 97.9 72 18 101/62 (75) 98 01/10/19 00:00 97.8 67 17 98/54 (69) 94 01/09/19 21:00 Nasal Cannula 2.0 01/09/19 20:00 97.7 64 16 95/56 (69) 95 01/09/19 18:45 97.8 61 18 92/54 (67) 100 01/09/19 17:45 97.7 66 18 92/54 (67) 100 01/09/19 17:15 97.4 63 16 93/54 (67) 99 01/09/19 16:45 97.3 64 20 93/54 (67) 98 01/09/19 16:40 97.9 71 13 90/52 100 Nasal Cannula 3 01/09/19 16:31 67 16 95/52 100 Nasal Cannula 3 01/09/19 16:21 68 15 95/52 100 Simple Mask 6 01/09/19 16:19 72 20 99 01/09/19 16:17 67 14 92/54 100 Simple Mask 6 01/09/19 16:12 97.7 63 11 91/54 99 Simple Mask 6 01/09/19 12:35 Room Air 01/09/19 12:24 97.3 57 18 92/56 (68) 97 I&O Intake and Output 01/09/19 01/10/19 19:00 07:00 Intake Total 1550 ml Output Total 675 ml 800 ml Balance 875 ml -800 ml Intake Oral 0 ml IV Total 1300 ml Other 250 ml Output Urine Total 625 ml 800 ml Estimated Blood Loss 50 ml # Voids 1 Dressing: saturated Drains: other - GLENDY 60cc serosanguinous Skin Exam Narrative Flap healing well with no evidence of ischemia. Warm and pink with good cap refill. Incisions intact. Laboratory Tests Test 01/10/19 05:40 White Blood Count 8.2 K/UL (4.8-10.8) Red Blood Count 3.50 M/UL (4.70-6.10) L Hemoglobin 10.0 G/DL (14.2-18.0) L Hematocrit 31.4 % (42.0-52.0) L Mean Corpuscular Volume 90 FL (80-99) Mean Corpuscular Hemoglobin 28.5 PG (27.0-31.0) Mean Corpuscular Hemoglobin Concent 31.9 G/DL (32.0-36.0) L Red Cell Distribution Width 18.4 % (11.6-14.8) H Platelet Count 349 K/UL (150-450) Mean Platelet Volume 5.0 FL (6.5-10.1) L Neutrophils (%) (Auto) 72.6 % (45.0-75.0) Lymphocytes (%) (Auto) 16.2 % (20.0-45.0) L Monocytes (%) (Auto) 9.7 % (1.0-10.0) Eosinophils (%) (Auto) 0.9 % (0.0-3.0) Basophils (%) (Auto) 0.6 % (0.0-2.0) Sodium Level 140 MMOL/L (136-145) Potassium Level 4.3 MMOL/L (3.5-5.1) Chloride Level 106 MMOL/L (98-107) Carbon Dioxide Level 25 MMOL/L (21-32) Anion Gap 10 mmol/L (5-15) Blood Urea Nitrogen 21 mg/dL (7-18) H Creatinine 0.6 MG/DL (0.55-1.30) Estimat Glomerular Filtration Rate > 60 mL/min (>60) Glucose Level 121 MG/DL (74-106) H Calcium Level 8.8 MG/DL (8.5-10.1) Total Bilirubin 0.3 MG/DL (0.2-1.0) Aspartate Amino Transf (AST/SGOT) 17 U/L (15-37) Alanine Aminotransferase (ALT/SGPT) 21 U/L (12-78) Alkaline Phosphatase 120 U/L (46-116) H Total Protein 7.4 G/DL (6.4-8.2) Albumin 2.8 G/DL (3.4-5.0) L Globulin 4.6 g/dL Albumin/Globulin Ratio 0.6 (1.0-2.7) L Plan Additional Comments Doing well POD#1. Continue GLENDY monitoring. Keep in clinitron bed. Dressings changed by me today. Await bone cultures to guide antibx management. Anticipate 1 week hospital stay. Elmer Pate MD Jan 10, 2019 06:59
--- NOTE | 2019-01-10 07:43 | NUR ---
NURSE NOTES: Patient awake, alert x4; on nasal cannula 2 Liter, no sing of distress and shortness of breath; Left-Ischial dressing dry and intact; Right-Ischial dressing dry and intact; PICC on Left-Upper Arm, dry and intact; nothing is running; Supra-pubic catheter drains urine; colostomy bag in place; patient on Clinition bed; call light and bed side table within reach; will keep monitoring.
--- NOTE | 2019-01-10 07:43 | NUR ---
HAND-OFF: Report given to Tony BARNEY.
[2019-01-10 08:00] VITALS: BP 105/59
[2019-01-10] MEDS: Zinc Sulfate 220mg cap ORAL SCH (08:21)
[2019-01-10] MEDS: Ascorbic Acid 500mg tab ORAL SCH (08:21)
[2019-01-10] MEDS: Bactrim-DS 1 tab ORAL SCH (08:21)
[2019-01-10] MEDS: Fluconazole 100mg tab ORAL SCH (08:22)
[2019-01-10] MEDS: Multivitamin w/Minerals tab ORAL SCH (08:22)
[2019-01-10] MEDS: Lactobacillus-GG tablet ORAL SCH (08:22)
[2019-01-10] MEDS: Allopurinol 100mg Tab ORAL SCH (08:22)
[2019-01-10] MEDS: Heparin 5000 units/ml inj SUBQ SCH ×2 (08:24→20:33)
--- NOTE | 2019-01-10 10:25 | NUR ---
*-* INSURANCE *-* ALL AVAILABLE CLINICALS HAVE BEEN FAXED TO: [facility] NO NCM ASSIGNED PLS FAX CLINICALS TO [phone]
[2019-01-10 12:00] VITALS: BP 112/60
--- NOTE | 2019-01-10 13:52 | NUR ---
RD ASSESSMENT & RECOMMENDATIONS SEE CARE ACTIVITY FOR COMPLETE ASSESSMENT DAILY ESTIMATED NEEDS: Needs based on Advanced wounds, paraplegia, surgery / 52kg 28-35 kcals/kg 1456- 1820 total kcals 1.5-2 g protein/kg 78- 104 g total protein 25-35 mL/kg 1300- 1820 total fluid mLs NUTRITION DIAGNOSIS: Increased KCAL and protein needs r/t wound healing and paraplegia as evidenced by pt w/ advanced ischial wound, s/p surgical intervention, on clinitron bed. PO DIET RECOMMENDATIONS: REGULAR DIET ADDITIONAL RECOMMENDATIONS: 1) High protein snacks in btwn meals. 2) ANDREZ BID. 3) Add MVI x1 + Vit C 500mg BID + ZnSO4 220mg daily x10 days 4) Calibrated bed scale wts ABLE 5) Monitor PO intake, need for snacks
[2019-01-10 16:00] VITALS: BP 107/58
--- NOTE | 2019-01-10 19:41 | NUR ---
HAND-OFF: Report given to ECTOR Marie.
--- NOTE | 2019-01-10 19:42 | NUR ---
NURSE NOTES: Received patient in no apparent distress. A&OX4. PICC line noted on left upper arm, patent and intact. Suprapubic cath noted, draining well by gravity, yellow urine noted. GLENDY drainage pouch noted on left hip, patent and intact. Colostomy noted on abdomen, patent and intact. Bed in lowest position. Call light within reach. Will continue to monitor.
[2019-01-10 20:00] VITALS: BP 102/54
[2019-01-10] MEDS: Dyna-Hex 2% Top Sol 2oz TOPIC SCH (23:02)
[2019-01-11] VITALS: BP 108/57
[2019-01-11 04:00] VITALS: BP 116/72
[2019-01-11] MEDS: Cephalexin 500mg cap ORAL SCH ×3 (05:20→17:48)
--- NOTE | 2019-01-11 07:36 | NUR ---
HAND-OFF: Report given to Ann-Marie BARNEY.
[2019-01-11 08:00] VITALS: BP 103/74
--- NOTE | 2019-01-11 08:02 | NUR ---
CASE MANAGEMENT: INITIAL REVIEW 63 YR OLD MALE HERE FOR ELECTIVE SURGERY PMH: HTN, CAD, CVA, DM, PARAPLEGIC, MRSA SI: STAGE 4 PRESSURE ULCER LEFT ISCHIUM 97.3 57 18 92/56 97% ON RA IS: EXCISION OF LEFT ISCHIAL PRESSURE ULCER OSTECTOMY, GLUTEAL FLAP CLOSURE : 3E MED SURG POST OP CASE MANAGEMENT: REVIEW 01/10/19 SI: POD#1, EXCISION OF LEFT ISCHIAL PRESSURE ULCER 98.2 70 18 105/59 98% on 2L NC BUN 21 IS: HEPARIN SQ Q12HR BACTRIM PO 3X WK PROTONIX PO QD ZINC SULFATE PO QD 3E MED SURG DCP: DISCHARGE HOME WHEN MEDICALLY CLEARED
--- NOTE | 2019-01-11 08:12 | NUR ---
NURSE NOTES: Pt received from Janell BARNEY. Pt awake, AOx4 with complaints of pain but no s/sx of distress. RR even and unlabored on RA. Dressing dry and intact. Suprapubic catheter draining well to gravity. Colostomy bag in place. Side rails upx2, bed low and locked, call light within reach. Will continue to monitor.
[2019-01-11] MEDS: Ascorbic Acid 500mg tab ORAL SCH (08:27)
[2019-01-11] MEDS: Multivitamin w/Minerals tab ORAL SCH (08:27)
[2019-01-11] MEDS: Zinc Sulfate 220mg cap ORAL SCH (08:30)
[2019-01-11] MEDS: Fluconazole 100mg tab ORAL SCH (08:30)
[2019-01-11] MEDS: Allopurinol 100mg Tab ORAL SCH (08:31)
[2019-01-11] MEDS: Lactobacillus-GG tablet ORAL SCH (08:31)
[2019-01-11] MEDS: Heparin 5000 units/ml inj SUBQ SCH ×2 (08:39→20:55)
--- NOTE | 2019-01-11 08:39 | General Progress Note ---
Assessment/Plan Assessment/Plan: 1. Resection of stage IV left ischial pressure ulcer with ostectomy in preparation for fasciocutaneous flap. 2. Left gluteal fasciocutaneous rotation flap. 3. chronic non healing wound 4. paraplegia 5. chronic pain PLAN 1. incentive spirometry 2. Lovenox 3. PT evaluation and therapy 4. Hydration 5. Pain management 6. discharge once stable with outpatient follow up Subjective Date patient seen: Jan 10, 2019 Allergies: Coded Allergies: MEPERIDINE (Verified Allergy, Intermediate, nausea/vomiting, 07/12/17) Subjective late entry Objective Last 24 Hour Vital Signs Date Time Temp Pulse Resp B/P (MAP) Pulse Ox O2 Delivery O2 Flow Rate FiO2 01/10/19 12:00 98.2 57 20 112/60 (77) 97 01/10/19 09:00 Nasal Cannula 2.0 Intake and Output Height (Feet): 5 Height (Inches): 5.00 Weight (Pounds): 115 Objective WDWN NAD clear breath sounds bilaterally without rhonchi or wheeze [id number] without MRG NABS nontender no HSM no CCE nonfocal atrophy of LE paraplegic Sarbjit Smith MD Jan 11, 2019 08:39
--- NOTE | 2019-01-11 08:41 | General Progress Note ---
Assessment/Plan Assessment/Plan: 1. Resection of stage IV left ischial pressure ulcer with ostectomy in preparation for fasciocutaneous flap. 2. Left gluteal fasciocutaneous rotation flap. 3. chronic non healing wound 4. paraplegia 5. chronic pain PLAN 1. incentive spirometry 2. SQ heparin 3. PT evaluation and therapy 4. Hydration/ monitor cultures 5. Pain management 6. discharge once stable with outpatient follow up impression, plan, and exam edited and reviewed in detail care discussed with RN Subjective Allergies: Coded Allergies: MEPERIDINE (Verified Allergy, Intermediate, nausea/vomiting, 07/12/17) Subjective care noted stable overnight Objective Last 24 Hour Vital Signs Date Time Temp Pulse Resp B/P (MAP) Pulse Ox O2 Delivery O2 Flow Rate FiO2 01/11/19 04:00 98.9 69 17 116/72 (87) 97 01/11/19 00:00 98.1 62 18 108/57 (74) 95 01/10/19 21:00 Room Air 01/10/19 20:00 98.3 65 16 102/54 (70) 96 01/10/19 19:31 97.7 01/10/19 16:00 97.7 61 18 107/58 (74) 96 01/10/19 12:00 98.2 57 20 112/60 (77) 97 01/10/19 09:00 Nasal Cannula 2.0 Intake and Output 01/10/19 01/11/19 19:00 07:00 Intake Total 300 ml 540 ml Output Total 800 ml 1465 ml Balance -500 ml -925 ml Intake Oral 300 ml 540 ml Output Urine Total 800 ml 1400 ml Drainage Total 65 ml # Voids 1 Labs Test 01/10/19 05:40 White Blood Count 8.2 K/UL (4.8-10.8) Red Blood Count 3.50 M/UL (4.70-6.10) Hemoglobin 10.0 G/DL (14.2-18.0) Hematocrit 31.4 % (42.0-52.0) Mean Corpuscular Volume 90 FL (80-99) Mean Corpuscular Hemoglobin 28.5 PG (27.0-31.0) Mean Corpuscular Hemoglobin Concent 31.9 G/DL (32.0-36.0) Red Cell Distribution Width 18.4 % (11.6-14.8) Platelet Count 349 K/UL (150-450) Mean Platelet Volume 5.0 FL (6.5-10.1) Neutrophils (%) (Auto) 72.6 % (45.0-75.0) Lymphocytes (%) (Auto) 16.2 % (20.0-45.0) Monocytes (%) (Auto) 9.7 % (1.0-10.0) Eosinophils (%) (Auto) 0.9 % (0.0-3.0) Basophils (%) (Auto) 0.6 % (0.0-2.0) Sodium Level 140 MMOL/L (136-145) Potassium Level 4.3 MMOL/L (3.5-5.1) Chloride Level 106 MMOL/L (98-107) Carbon Dioxide Level 25 MMOL/L (21-32) Anion Gap 10 mmol/L (5-15) Blood Urea Nitrogen 21 mg/dL (7-18) Creatinine 0.6 MG/DL (0.55-1.30) Estimat Glomerular Filtration Rate > 60 mL/min (>60) Glucose Level 121 MG/DL (74-106) Calcium Level 8.8 MG/DL (8.5-10.1) Total Bilirubin 0.3 MG/DL (0.2-1.0) Aspartate Amino Transf (AST/SGOT) 17 U/L (15-37) Alanine Aminotransferase (ALT/SGPT) 21 U/L (12-78) Alkaline Phosphatase 120 U/L (46-116) Total Protein 7.4 G/DL (6.4-8.2) Albumin 2.8 G/DL (3.4-5.0) Globulin 4.6 g/dL Albumin/Globulin Ratio 0.6 (1.0-2.7) Height (Feet): 5 Height (Inches): 5.00 Weight (Pounds): 115 Objective WDWN NAD clear breath sounds bilaterally without rhonchi or wheeze [id number] without MRG NABS nontender no HSM no CCE nonfocal atrophy of LE paraplegic Sarbjit Smith MD Jan 11, 2019 08:41
--- NOTE | 2019-01-11 11:39 | NUR ---
CASE MANAGEMENT: REVIEW 01/11/19 SI: POD#2, EXCISION OF LEFT ISCHIAL PRESSURE ULCER 98.0 78 21 103/74 97% ON RA IS: KEFLEX PO Q6HR DIFLUCAN PO QD HEPARIN SQ Q12HR BACTRIM PO 3X WK PROTONIX PO QD ZINC SULFATE PO QD 3E MED SURG DCP: DISCHARGE HOME WHEN MEDICALLY CLEARED
[2019-01-11 12:00] VITALS: BP 150/94
--- NOTE | 2019-01-11 13:30 | NUR ---
NURSE NOTES: Dressings changed.
--- NOTE | 2019-01-11 15:12 | NUR ---
DISCHARGE PLANNING: PATIENT IS REQUESTING TO BE PLACED AT [facility] T:[phone] F:[phone] PATIENT WAS PERVIOUSLY AT THIS FACILITY
[2019-01-11 16:00] VITALS: BP 101/64
--- NOTE | 2019-01-11 19:29 | NUR ---
HAND-OFF: Report given to Tori BARNEY. Patient stable.
--- NOTE | 2019-01-11 19:33 | NUR ---
NURSE NOTES: Patient is in bed, awake and alert x4. On room air with no signs of distress or SOB. Dressing dry and intact. Suprapubic catheter in place and draining well. JORGE L PICC intact and patent. Colostomy bag in place. Bed locked and in lowest position. Call light in reach. Will continue to monitor.
[2019-01-11 20:00] VITALS: BP 98/57
[2019-01-11] MEDS: Dyna-Hex 2% Top Sol 2oz TOPIC SCH (20:47)
[2019-01-12] VITALS (10 sets, daily range): BP systolic 86–108; BP diastolic 50–67
[2019-01-12] MEDS: Cephalexin 500mg cap ORAL SCH ×4 (00:09→18:37)
--- NOTE | 2019-01-12 07:14 | NUR ---
HAND-OFF: Report given to ECTOR Jacobsen.
--- NOTE | 2019-01-12 07:22 | NUR ---
NURSE NOTES: Pt received from Tori BARNEY. Pt sleeping. No s/sx of distress. RR even and unlabored on RA. Side rails upx2, bed low and locked, call light within reach. Will continue to monitor.
--- NOTE | 2019-01-12 08:53 | General Progress Note ---
Assessment/Plan Assessment/Plan: 1. Resection of stage IV left ischial pressure ulcer with ostectomy in preparation for fasciocutaneous flap. 2. Left gluteal fasciocutaneous rotation flap. 3. chronic non healing wound 4. paraplegia 5. chronic pain PLAN 1. incentive spirometry 2. SQ heparin 3. PT evaluation and therapy 4. Hydration/ monitor cultures 5. Pain management 6. discharge next week if stable impression, plan, and exam edited and reviewed in detail care discussed with RN Subjective Allergies: Coded Allergies: MEPERIDINE (Verified Allergy, Intermediate, nausea/vomiting, 07/12/17) Subjective care noted stable overnight Objective Last 24 Hour Vital Signs Date Time Temp Pulse Resp B/P (MAP) Pulse Ox O2 Delivery O2 Flow Rate FiO2 01/12/19 08:00 97.5 57 19 91/57 (68) 96 01/12/19 07:58 Room Air 01/12/19 04:00 97.8 77 19 108/62 (77) 98 01/12/19 00:00 97.6 62 19 93/52 (66) 96 01/11/19 21:00 Room Air 01/11/19 20:00 97.6 60 18 98/57 (71) 96 01/11/19 16:00 97.4 61 19 101/64 (76) 97 01/11/19 12:00 98.4 68 19 150/94 (112) 97 01/11/19 09:00 Room Air Intake and Output 01/11/19 01/12/19 18:59 06:59 Intake Total 1260 ml 240 ml Output Total 500 ml 605 ml Balance 760 ml -365 ml Intake Oral 1260 ml 240 ml Output Urine Total 500 ml 600 ml Drainage Total 5 ml # Voids 1 Height (Feet): 5 Height (Inches): 5.00 Weight (Pounds): 115 Objective WDWN NAD clear breath sounds bilaterally without rhonchi or wheeze [id number] without MRG NABS nontender no HSM no CCE nonfocal atrophy of LE paraplegic Sarbjit Smith MD Jan 12, 2019 08:53
[2019-01-12] MEDS: Ascorbic Acid 500mg tab ORAL SCH (08:56)
[2019-01-12] MEDS: Bactrim-DS 1 tab ORAL SCH (08:56)
[2019-01-12] MEDS: Lactobacillus-GG tablet ORAL SCH (08:56)
[2019-01-12] MEDS: Allopurinol 100mg Tab ORAL SCH (08:57)
[2019-01-12] MEDS: Fluconazole 100mg tab ORAL SCH (08:57)
[2019-01-12] MEDS: Multivitamin w/Minerals tab ORAL SCH (08:57)
[2019-01-12] MEDS: Zinc Sulfate 220mg cap ORAL SCH (08:57)
--- NOTE | 2019-01-12 09:00 | NUR ---
NURSE NOTES: Spoke with Dr. Smith regarding pt's low BP. Per it's okay because pt runs low.
[2019-01-12] MEDS: Heparin 5000 units/ml inj SUBQ SCH ×2 (09:01→21:04)
--- NOTE | 2019-01-12 12:15 | NUR ---
NURSE NOTES: Pt does not want dressing change now. Will change it later when pt agrees to it.
--- NOTE | 2019-01-12 14:02 | NUR ---
NURSE NOTES: Dressing changed on Lt ischium by Dr. Pate.
--- NOTE | 2019-01-12 14:08 | NUR ---
NURSE NOTES: Spoke with Dr. Pate regarding PT eval placed by Dr. Smith who stated to cancel it for now.
--- NOTE | 2019-01-12 14:12 | Plastic Surgery Progress Note ---
Plastic Surgery-Progress Note Subjective Procedure Performed Resection of left ischial pressure ulcer with ostectomy and gluteal flap closure. Additional Comments Patient is POD#3 s/p resection left ischial ulcer with flap closure. He has no new complaints. His dressings have been changed daily. Objective Last 24 Hour Vital Signs Date Time Temp Pulse Resp B/P (MAP) Pulse Ox O2 Delivery O2 Flow Rate FiO2 01/12/19 12:00 97.3 57 17 102/62 (75) 96 01/12/19 08:00 97.5 57 19 91/57 (68) 96 01/12/19 07:58 Room Air 01/12/19 04:00 97.8 77 19 108/62 (77) 98 01/12/19 00:00 97.6 62 19 93/52 (66) 96 01/11/19 21:00 Room Air 01/11/19 20:00 97.6 60 18 98/57 (71) 96 01/11/19 16:00 97.4 61 19 101/64 (76) 97 I&O Intake and Output 01/11/19 01/12/19 19:00 07:00 Intake Total 1260 ml 240 ml Output Total 500 ml 605 ml Balance 760 ml -365 ml Intake Oral 1260 ml 240 ml Output Urine Total 500 ml 600 ml Drainage Total 5 ml # Voids 1 Dressing: saturated Skin Exam Narrative 3 cm segment of incision dehiscence at level of skin. Does not probe deep and GLENDY able to maintain suction. Wound is clean. Skin of the flap appears healthy and viable. Plan Additional Comments POD# 3 now with superficial flap dehiscence. Unclear as to why as the flap appears healthy with good cap refill and no signs of ischemia. Patient has been sitting up in the bed per the nurse which may be a contributing factor. Because it is only 3 days out from original surgery, feel it is worthwhile to attempt to close the dehiscence as it is less than a cm in width. Will schedule. Explained to patient. Elmer Pate MD Jan 12, 2019 14:12
[2019-01-12] MEDS ORDERED: Lidocaine 1% 10mg/ml/Epi 0.005mg/ml 30ml vial INJ ONE (15:13)
[2019-01-12] MEDS ORDERED: Bacitracin 50000 Units Vial ONE (15:13)
[2019-01-12] MEDS ORDERED: ProvayBlue 5mg/ml 10ml amp INJ ONE (15:15)
--- NOTE | 2019-01-12 15:41 | NUR ---
DISCHARGE PLANNING: PATIENT IS REQUESTING TO BE PLACED AT [facility] T:[phone] F:[phone] PATIENT WAS PERVIOUSLY AT THIS FACILITY
--- NOTE | 2019-01-12 15:41 | NUR ---
CASE MANAGEMENT: REVIEW 01/12/19 SI: POD#3, EXCISION OF LEFT ISCHIAL PRESSURE ULCER 97.5 57 19 91/57 96% ON RA IS: KEFLEX PO Q6HR DIFLUCAN PO QD HEPARIN SQ Q12HR BACTRIM PO 3X WK PROTONIX PO QD ZINC SULFATE PO QD 3E MED SURG DCP: DISCHARGE HOME WHEN MEDICALLY CLEARED WOUND CX (+) DIPHTHEROIDS + MRSA NARES
--- NOTE | 2019-01-12 16:23 | NUR ---
NURSE NOTES: Patient taken down for procedure. 500mLs drained from suprapubic catheter.
[2019-01-12] MEDS ORDERED: NS Irrig 2000ml IRRIG ONE ×2 (16:40→17:18)
[2019-01-12] MEDS ORDERED: NS Irrig 1000ml IRRIG ONE ×2 (16:40→17:18)
--- NOTE | 2019-01-12 17:35 | Immediate Post-Op Evaluation ---
Immediate Post-Op Evalulation Immediate Post-Op Evalulation Procedure: closure of L hip chronic wound dehiscence Date of Evaluation: Jan 12, 2019 Time of Evaluation: 18:10 IV Fluids: 0 Blood Products: 0 Estimated Blood Loss: 2 Urinary Output: 0 Blood Pressure Systolic: 94 Blood Pressure Diastolic: 52 Pulse Rate: 64 Respiratory Rate: 18 O2 Sat by Pulse Oximetry: 100 Temperature (Fahrenheit): 98.2 Pain Score (1-10): 0 Nausea: No Vomiting: No Complications 0 Patient Status: awake, reacts, patent, none Hydration Status: adequate Drug: On Floor Brant Lam MD Jan 12, 2019 17:34
[2019-01-12] MEDS ORDERED: Nitroglycerin 2% oint pkt TOPIC ONE (17:46)
--- NOTE | 2019-01-12 17:58 | Pre-Procedure Note/Attestation ---
Pre-Procedure Note/Attestation Complete Prior to Procedure Planned Procedure: left Procedure Narrative: Closure of left ischial flap dehiscence Indications for Procedure Pre-Operative Diagnosis: Stage 4 pressure ulcer left ischium Attestation I attest that I discussed the nature of the procedure; its benefits; risks and complications; and alternatives (and the risks and benefits of such alternatives ), prior to the procedure, with the patient (or the patient's legal commercial representative). I attest that, if there was a reasonable possibility of needing a blood transfusion, the patient (or the patient's legal commercial representative) was given the [facility] standardized written summary, pursuant to the Natanael Luis Eduardo Blood Safety Act ([place] Health and Safety Code # 1645, as amended). I attest that I re-evaluated the patient just prior to the surgery and that there has been no change in the patient's H&P, except as documented below: Elmer Pate MD Jan 12, 2019 17:58
--- NOTE | 2019-01-12 18:00 | Brief Operative Note ---
Immediate Post Operative Note Operative Note Pre-op Diagnosis: Dehiscence left ischial flap dehiscence Procedure: Resection of left ischial pressure ulcer with ostectomy and gluteal flap closure. Post-op Diagnosis: same as pre-op Surgeon: Rio Anesthesiologist: Dario Anesthesia: other Specimen: none Complications: none Condition: stable Fluids: IVF Estimated Blood Loss: none Drains: none Implant(s) used?: No Elmer Pate MD Jan 12, 2019 18:00
--- NOTE | 2019-01-12 18:30 | NUR ---
NURSE NOTES: Pt received from PACU. Patient AOx4 with complaints of 8/10. Will medicate. RR even and unlabored on RA. Dressing dry and intact. Pt eating dinner. Will continue to monitor.
--- NOTE | 2019-01-12 19:42 | NUR ---
HAND-OFF: Report sheet given to charge nurse Ana BARNEY. Patient stable.
--- NOTE | 2019-01-12 20:30 | NUR ---
NURSE NOTES: RECEIVED PT FROM CHARGE NURSE MARTIN. PT IS AWAKE, AAOX4, ON ROOM AIR, NO ACUTE DISTRESS NOTED. PATIENT IS ON A CLITRON BED. GLENDY DRAIN ON LEFT SIDE IS INTACT, DRAINING WELL. SURGICAL DRESSING IS INTACT AND DRY. LEFT UPPER ARM PICC LINE IS INTACT. INCENTIVE SPIROMETER AT BEDSIDE. PT STATED HE'S BEEN USING EVERY HOUR. CALL LIGHT IS WITHIN REACH. WILL CONTINUE TO MONITOR
--- NOTE | 2019-01-12 20:30 | Operative Note - Dictated ---
DATE OF OPERATION: 01/12/2019 SURGEON: Elmer Pate M.D. ANESTHESIOLOGIST: Brant Lam M.D. PREOPERATIVE DIAGNOSIS: Dehiscence of left gluteal flap. POSTOPERATIVE DIAGNOSIS: Dehiscence of left gluteal flap. OPERATION: Closure of left gluteal flap dehiscence. ANESTHESIA: None. OPERATIVE INDICATIONS: This is a 63-year-old male who underwent a left gluteal flap closure of stage IV ischial pressure ulcer on 01/09/2019. He was doing well and the flap was healing well and viable when inspected on postoperative day #1. On postoperative day #3, it was noted that he had a small superficial dehiscence in the inferior aspect of the flap, measuring approximately 4 cm in width by 0.8 cm in length. This is a superficial dehiscence given that the GLENDY drain just below it was still maintaining good suction. The decision was in question. The patient, he had been sitting up in his Clinitron bed several times, which may have led to undue tension on the flap. In any regards, decision was made to take the patient back to perform a closure prior to the dehiscence, worsening since he was only three days out from surgery. Once he was consented, he was then scheduled for the surgery. OPERATIVE PROCEDURE: The patient was seen in the preoperative area and operative findings are again discussed and agreed upon. Taken back to the operating room and placed on the operating table in the right lateral decubitus position. Given that he is paraplegic. No local anesthetic or anesthesia was necessary. Anesthesiologist was present standby in case if there is any sort of discomfort. The area was prepped and draped in usual sterile fashion. The time-out was performed and investigation revealed that the horizontal mattress suture that was placed was still intact, however, it loosened in this area for some reason. It did not probe deep and the second layers in the deep dermis and subcutaneous tissue were still intact, which explains why the GLENDY drain was still maintaining suction. This area was cleansed and then 2-0 nylon suture was used in a running horizontal mattress fashion to close this dehiscence. There was no tension in the flap, itself was healing well and was viable with no evidence of ischemia. At this point, dressings were applied, which consisted of fluff, ABD, and a foam tape. The patient was then placed on a Clinitron bed again and taken to his room. There were no complications. EBL was 0. The patient tolerated the procedure well. Elmer Pate M.D. DR: ZORAN JOB#: [id number] CC:
[2019-01-12] MEDS: Dyna-Hex 2% Top Sol 2oz TOPIC SCH (20:54)
[2019-01-13] VITALS: BP 81/55
[2019-01-13] MEDS: Cephalexin 500mg cap ORAL SCH ×4 (01:30→17:41)
[2019-01-13 04:00] VITALS: BP 83/55
--- NOTE | 2019-01-13 07:30 | NUR ---
HAND-OFF: Report given to ECTOR Hughes.Pt is in stable condition. Endorsed plan of care.
--- NOTE | 2019-01-13 07:43 | NUR ---
NURSE NOTES: received report from Mary Carmen, RN. patient in bed, alert, oriented. verbally responsive. no respiratory distress noted. mild discomfort on surgical site on left ishicial area. supra pubic cath draining. dark yellow, no hematuria noted. PICC line NATAN intact. dressing clean and dry. water bed for wound management. contact isolation. PPE at all times. call light within reach. will continue to provide plan of care.
[2019-01-13 08:00] VITALS: BP 99/76
[2019-01-13] MEDS: Multivitamin w/Minerals tab ORAL SCH (08:30)
[2019-01-13] MEDS: Fluconazole 100mg tab ORAL SCH (08:30)
[2019-01-13] MEDS: Lactobacillus-GG tablet ORAL SCH (08:30)
[2019-01-13] MEDS: Ascorbic Acid 500mg tab ORAL SCH (08:30)
[2019-01-13] MEDS: Allopurinol 100mg Tab ORAL SCH (08:30)
[2019-01-13] MEDS: Zinc Sulfate 220mg cap ORAL SCH (08:30)
[2019-01-13] MEDS: Heparin 5000 units/ml inj SUBQ SCH ×2 (08:32→22:15)
--- NOTE | 2019-01-13 09:09 | NUR ---
RD ASSESSMENT & RECOMMENDATIONS SEE CARE ACTIVITY FOR COMPLETE ASSESSMENT DAILY ESTIMATED NEEDS: Needs based on Advanced wounds, paraplegia, surgery / 52kg 28-35 kcals/kg 1456- 1820 total kcals 1.5-2 g protein/kg 78- 104 g total protein 25-35 mL/kg 1300- 1820 total fluid mLs NUTRITION DIAGNOSIS: Increased KCAL and protein needs r/t wound healing and paraplegia as evidenced by pt w/ advanced ischial wound, s/p surgical intervention, on Clinitron bed. CURRENT DIET:Regular PO DIET RECOMMENDATIONS: REGULAR DIET ADDITIONAL RECOMMENDATIONS: 1) High protein snacks in b/w meals added 2) ANDREZ BID added 3) Continue MVI, Vit C and ZnSO4 4) Calibrated bed scale wts ABLE 5) Monitor PO intake closely 6) Updated CBC and BMP as able
--- NOTE | 2019-01-13 10:01 | General Progress Note ---
Assessment/Plan Problem List: (1) Paraplegia ICD Codes: G82.20 - Paraplegia SNOMED: 88696293 (2) Infected wound ICD Codes: T79.8XXA - Infected wound SNOMED: 95420203 (3) Infective myositis, left thigh ICD Codes: M60.052 - Infective myositis, left thigh SNOMED: 912361291 (4) Open wound of thigh, complicated ICD Codes: S71.109A - Unspecified open wound, unspecified thigh, initial encounter SNOMED: 748503257 Status: stable Assessment/Plan: cont current rx stable Subjective ROS Limited/Unobtainable: No Constitutional: Reports: weakness HEENT: Reports: no symptoms Cardiovascular: Reports: no symptoms Respiratory: Reports: no symptoms Gastrointestinal/Abdominal: Reports: no symptoms Genitourinary: Reports: no symptoms Neurologic/Psychiatric: Reports: no symptoms Endocrine: Reports: no symptoms Hematologic/Lymphatic: Reports: no symptoms Allergies: Coded Allergies: MEPERIDINE (Verified Allergy, Intermediate, nausea/vomiting, 07/12/17) All Systems: reviewed and negative except above Subjective s/p flap. no complaints.pain controlled. no fever or chills. Objective Last 24 Hour Vital Signs Date Time Temp Pulse Resp B/P (MAP) Pulse Ox O2 Delivery O2 Flow Rate FiO2 01/13/19 09:00 Room Air 01/13/19 08:00 97.0 69 20 99/76 (84) 94 01/13/19 04:00 98.3 70 20 83/55 (64) 96 01/13/19 00:00 98.6 73 20 81/55 (64) 97 01/12/19 21:00 Room Air 01/12/19 20:00 98.3 71 18 86/50 (62) 98 01/12/19 18:30 98.1 80 18 97/56 (70) 98 01/12/19 18:10 98.2 89 19 88/56 98 Room Air 01/12/19 18:05 85 20 98/58 98 Room Air 01/12/19 17:59 98.0 62 18 94/56 98 Room Air 01/12/19 17:56 64 18 100 01/12/19 16:00 97.8 86 18 100/67 (78) 96 01/12/19 12:00 97.3 57 17 102/62 (75) 96 Height (Feet): 5 Height (Inches): 5.00 Weight (Pounds): 115 General Appearance: WD/WN, alert EENT: TMs normal Neck: supple Cardiovascular: normal peripheral pulses, normal rate, regular rhythm Respiratory/Chest: chest wall non-tender, lungs clear, normal breath sounds Jarek Edwards MD Jan 13, 2019 10:01
--- NOTE | 2019-01-13 11:21 | NUR ---
NURSE NOTES: RN changed dressing on lt ischial surgical site as ordered. No s/sx of infection. vinay in place. Dileep drainage bag with 10cc serousanguinious out put. Rt ischial with biotain tape. noted scant sediment in the cath tube. RN flushed supra pubic cath with NS. draining well. changed colostomy bag. small brown formed BM.
[2019-01-13 12:00] VITALS: BP 122/69
[2019-01-13 16:00] VITALS: BP 113/63
--- NOTE | 2019-01-13 19:27 | NUR ---
HAND-OFF: Report given to ECTOR Lentz.
[2019-01-13 20:00] VITALS: BP 101/60
--- NOTE | 2019-01-13 20:05 | NUR ---
NURSE NOTES: RECEIVED PT FROM ECTOR SIMON. PT IS AWAKE, AAOX4, ON ROOM AIR, NO ACUTE DISTRESS NOTED. PT IS ON CLINTRON BED. COLOSTOMY IS INTACT AND PATENT. SUPRAPUBIC CATH IS DRAINING WELL. GLENDY IS INTACT, DRAINING WELL. DRESSINGS ON LEFT ISCHEAL IS INTACT AND DRY. LEFT UPPER ARM PICC IS INTACT AND PATENT. PT DENIES PAIN AT THE MOMENT. CALL LIGHT IS WITHIN REACH. WILL CONTINUE TO MONITOR.
[2019-01-13] MEDS: Dyna-Hex 2% Top Sol 2oz TOPIC SCH (22:14)
[2019-01-14] VITALS: BP 105/55
[2019-01-14] MEDS: Cephalexin 500mg cap ORAL SCH ×4 (00:56→17:22)
[2019-01-14 04:00] VITALS: BP 95/85
--- NOTE | 2019-01-14 07:30 | NUR ---
NURSE NOTES: Patient is in bed awake and able to verbalize needs. Stable. Denies pain or SOB. Patient is in good spirits and has no complaints at this time. Plan of care discussed with patient, patient verbalized understanding. Suprapubic catheter draining into bag. Colostomy bag in place, clean and dry. Surgical dressings c/d/i. Offered to give patient bath, patient refused and said he will wait for his to help him. Oral care supplies provided, patient stated he wants to do it himself. All needs met at this time. Patient is in pressure relieving bed as ordered. All safety measures provided. Call light within reach. Will continue to monitor.
--- NOTE | 2019-01-14 07:41 | NUR ---
HAND-OFF: Report given to ECTOR Ames. Patient is in stable condition. Endorsed plan of care.
[2019-01-14 08:00] VITALS: BP 106/67
[2019-01-14] MEDS: Heparin 5000 units/ml inj SUBQ SCH ×2 (08:41→21:03)
[2019-01-14] MEDS: Fluconazole 100mg tab ORAL SCH (08:42)
[2019-01-14] MEDS: Ascorbic Acid 500mg tab ORAL SCH (08:42)
[2019-01-14] MEDS: Zinc Sulfate 220mg cap ORAL SCH (08:42)
[2019-01-14] MEDS: Multivitamin w/Minerals tab ORAL SCH (08:42)
[2019-01-14] MEDS: Lactobacillus-GG tablet ORAL SCH (08:42)
[2019-01-14] MEDS: Allopurinol 100mg Tab ORAL SCH (08:45)
--- NOTE | 2019-01-14 09:24 | General Progress Note ---
Assessment/Plan Problem List: (1) Paraplegia ICD Codes: G82.20 - Paraplegia SNOMED: 49094332 (2) Infected wound ICD Codes: T79.8XXA - Infected wound SNOMED: 88529288 (3) Infective myositis, left thigh ICD Codes: M60.052 - Infective myositis, left thigh SNOMED: 452588639 (4) Open wound of thigh, complicated ICD Codes: S71.109A - Unspecified open wound, unspecified thigh, initial encounter SNOMED: 540287766 Status: stable Assessment/Plan: cont current rx stable post op care pain rx Subjective ROS Limited/Unobtainable: No Constitutional: Reports: malaise, weakness HEENT: Reports: no symptoms Cardiovascular: Reports: no symptoms Respiratory: Reports: no symptoms Gastrointestinal/Abdominal: Reports: no symptoms Genitourinary: Reports: no symptoms Neurologic/Psychiatric: Reports: no symptoms Endocrine: Reports: no symptoms Hematologic/Lymphatic: Reports: no symptoms Allergies: Coded Allergies: MEPERIDINE (Verified Allergy, Intermediate, nausea/vomiting, 07/12/17) All Systems: reviewed and negative except above Subjective s/p flap. no complaints.pain controlled. no fever or chills. Objective Last 24 Hour Vital Signs Date Time Temp Pulse Resp B/P (MAP) Pulse Ox O2 Delivery O2 Flow Rate FiO2 01/14/19 04:00 97.5 59 17 95/85 (88) 97 01/14/19 00:00 97.5 53 16 105/55 (72) 97 01/13/19 21:00 Room Air 01/13/19 20:00 97.2 53 17 101/60 (74) 97 01/13/19 16:00 98.2 55 20 113/63 (80) 98 01/13/19 12:00 97.9 58 20 122/69 (86) 97 Intake and Output 01/13/19 01/14/19 19:00 07:00 Intake Total 500 ml 300 ml Output Total 3230 ml 440 ml Balance -2730 ml -140 ml Intake Oral 500 ml Other 300 ml Output Urine Total 2950 ml 400 ml Gastric Drainage Total 220 ml Drainage Total 40 ml Other 60 ml Height (Feet): 5 Height (Inches): 5.00 Weight (Pounds): 115 General Appearance: WD/WN, alert Neck: supple Cardiovascular: regular rhythm Respiratory/Chest: chest wall non-tender, lungs clear, normal breath sounds, no respiratory distress Abdomen: normal bowel sounds, non tender, soft, no organomegaly Jarek Edwards MD Jan 14, 2019 09:24
[2019-01-14 12:00] VITALS: BP 106/70
--- NOTE | 2019-01-14 15:00 | NUR ---
NURSE NOTES: Surgical dressing changed as ordered. Surgical incision clean and dry. No s/s infections at this time.
[2019-01-14 16:00] VITALS: BP 107/76
--- NOTE | 2019-01-14 17:33 | NUR ---
NURSE NOTES: Colostomy bag changed. Tolerated well. Stoma is bright red, surrounding skin is clean, dry, and intact.
--- NOTE | 2019-01-14 19:30 | NUR ---
HAND-OFF: Report given to Maeve BARNEY. Patient is stable.
[2019-01-14] MEDS: Dyna-Hex 2% Top Sol 2oz TOPIC SCH ×2 (19:57→21:03)
[2019-01-14 20:00] VITALS: BP 95/65
--- NOTE | 2019-01-14 20:00 | NUR ---
NURSE NOTES: NURSE NOTES Recieved report from Carole Schmidt, patient stable no distress, on Room air. A/Ox 4, denies any pain. Picc line on JORGE L with I.V fluids running patent and asymptomatic Ileostomy and gtube draining ,bed in low, locked position and call light with in reach will continue to monitor Addendum: 01/14/19 at 2303 by Junior Willson RN NURSE NOTES: Recieved report from Carole Ames , patient stable no distress, on Room air. A/Ox 4, C/O of back pain of 7/10 pain taya, provide pain meds as ordered. Picc line on JORGE L saline locked and asymptomatic. suprapubic catheter in tact with clean dressing, colostomy bag empty and intact ,bed in low, locked position and call light with in reach will continue to monitor Addendum: 01/15/19 at 0056 by Junior Willsno RN Please disregard first note for a different patient
[2019-01-15] VITALS (7 sets, daily range): BP systolic 98–125; BP diastolic 60–76
[2019-01-15] MEDS: Cephalexin 500mg cap ORAL SCH ×5 (00:25→23:37)
--- NOTE | 2019-01-15 07:25 | NUR ---
NURSE NOTES: received patient in bed awake , no sign of distress, PICC line patent, Suprapubic catheter draining into bag. Colostomy bag in place, clean and dry. Surgical dressings dressing clean and dry .on clinitron bed/ pressure relieving bed as ordered. All safety measures provided. Call light within reach. plan of care was discussed verblzed understnding,Will continue to monitor. slade rivera
--- NOTE | 2019-01-15 07:30 | NUR ---
HAND-OFF: Report given to Ligia Escobar RN. Rounds done.
[2019-01-15] MEDS: Bactrim-DS 1 tab ORAL SCH (08:44)
[2019-01-15] MEDS: Zinc Sulfate 220mg cap ORAL SCH (08:44)
[2019-01-15] MEDS: Lactobacillus-GG tablet ORAL SCH (08:44)
[2019-01-15] MEDS: Multivitamin w/Minerals tab ORAL SCH (08:44)
[2019-01-15] MEDS: Allopurinol 100mg Tab ORAL SCH (08:45)
[2019-01-15] MEDS: Ascorbic Acid 500mg tab ORAL SCH (08:45)
[2019-01-15] MEDS: Fluconazole 100mg tab ORAL SCH (08:45)
[2019-01-15] MEDS: Heparin 5000 units/ml inj SUBQ SCH ×2 (08:54→20:25)
--- NOTE | 2019-01-15 10:39 | NUR ---
nurse notes dressing done to left hip/gluteal flap, pat dry , applied multiple 4x4 and cover with 3 abdominal pads and use foam tape, left ischial dressing changed with new biotene , tolerated the proc well slade rivera
--- NOTE | 2019-01-15 11:30 | Plastic Surgery Progress Note ---
Plastic Surgery-Progress Note Subjective Procedure Performed Resection of left ischial pressure ulcer with ostectomy and gluteal flap closure. Additional Comments POD#6 s/p flap closure left ischial ulcer and POD#3 s/p closure of distal flap dehiscence. He has been compliant with laying flat. No other issues. Objective Last 24 Hour Vital Signs Date Time Temp Pulse Resp B/P (MAP) Pulse Ox O2 Delivery O2 Flow Rate FiO2 01/15/19 08:31 Room Air 01/15/19 08:00 98.2 57 17 108/62 (77) 98 01/15/19 04:00 97.5 66 17 101/60 (74) 97 01/15/19 00:00 97.6 61 16 98/63 (75) 96 01/14/19 21:00 Room Air 01/14/19 20:00 97.3 64 17 95/65 (75) 97 01/14/19 16:00 97.2 60 20 107/76 (86) 97 01/14/19 12:00 97.3 59 18 106/70 (82) 98 I&O Intake and Output 01/14/19 01/15/19 18:59 06:59 Intake Total 300 ml 480 ml Output Total 100 ml 1112 ml Balance 200 ml -632 ml Intake Oral 300 ml 480 ml Output Urine Total 100 ml 1100 ml Drainage Total 12 ml Dressing: dry Skin Exam: other - Flap healing well. Area of reclosure remains intact with good vascularity. GLENDY serous. Plan Additional Comments Doing well. Will re-evaluate in 2 days. If flap remains intact anticipate discharge to SNF on clinitron bed this or tuesday. He must go to facility that accepts the clinitron bed. He has gone to a specific one in the past and the has already reached out to them. Elmer Pate MD Jan 15, 2019 11:30
--- NOTE | 2019-01-15 12:10 | General Progress Note ---
Assessment/Plan Status: stable Assessment/Plan: 1. Resection of stage IV left ischial pressure ulcer with ostectomy in preparation for fasciocutaneous flap. 2. Left gluteal fasciocutaneous rotation flap. 3. chronic non healing wound 4. paraplegia 5. chronic pain 6. s/p resection of distal flap dehiscence PLAN 1. incentive spirometry 2. SQ heparin 3. PT evaluation and therapy 4. Hydration/ monitor cultures 5. Pain management 6. discharge once cleared by surgery and stable impression, plan, and exam edited and reviewed in detail care discussed with RN Subjective Allergies: Coded Allergies: MEPERIDINE (Verified Allergy, Intermediate, nausea/vomiting, 07/12/17) Subjective care noted post op care noted Objective Last 24 Hour Vital Signs Date Time Temp Pulse Resp B/P (MAP) Pulse Ox O2 Delivery O2 Flow Rate FiO2 01/15/19 08:31 Room Air 01/15/19 08:00 98.2 57 17 108/62 (77) 98 01/15/19 04:00 97.5 66 17 101/60 (74) 97 01/15/19 00:00 97.6 61 16 98/63 (75) 96 01/14/19 21:00 Room Air 01/14/19 20:00 97.3 64 17 95/65 (75) 97 01/14/19 16:00 97.2 60 20 107/76 (86) 97 Intake and Output 01/14/19 01/15/19 19:00 07:00 Intake Total 300 ml 480 ml Output Total 100 ml 1112 ml Balance 200 ml -632 ml Intake Oral 300 ml 480 ml Output Urine Total 100 ml 1100 ml Drainage Total 12 ml Height (Feet): 5 Height (Inches): 5.00 Weight (Pounds): 115 Objective WDWN NAD clear breath sounds bilaterally without rhonchi or wheeze [id number] without MRG NABS nontender no HSM no CCE nonfocal atrophy of LE paraplegic Sarbjit Smith MD Jan 15, 2019 12:10
--- NOTE | 2019-01-15 14:22 | NUR ---
*-* INSURANCE *-* ALL AVAILABLE CLINICALS HAVE BEEN FAXED TO: EVA NGUYEN NO NCM ASSIGNED PLS FAX CLINICALS TO [phone]
--- NOTE | 2019-01-15 14:36 | NUR ---
CASE MANAGEMENT: REVIEW 01/13/19 SI: POD#4...S/P RESECTION POD #1...S/P CLOSURE 97.9 58 20 122/69 97% ON RA IS: BACTRIM PO 3X/WEEK DIFLUCAN PO QD KEFLEX PO Q6HRS HEPARIN SQ Q12 MVI PO QD ALLOPURINOL PO QD LEXAPRO PO QD LACTOBACILLUS PO QD ZINC PO QD PROTONIX PO QD PERCOCET PO Q4HRS PRN : MED/SURG STATUS 3 EAST PLAN: PATIENT'S IS REQUESTING HE BE PLACED AT [facility] T:[phone] F:[phone] PATIENT WAS PERVIOUSLY AT THIS FACILITY
--- NOTE | 2019-01-15 14:46 | NUR ---
CASE MANAGEMENT: REVIEW 01/14/19 SI: POD#5...S/P RESECTION POD #2...S/P CLOSURE 97.9 58 20 122/69 97% ON RA IS: BACTRIM PO 3X/WEEK DIFLUCAN PO QD KEFLEX PO Q6HRS HEPARIN SQ Q12 MVI PO QD ALLOPURINOL PO QD LEXAPRO PO QD LACTOBACILLUS PO QD ZINC PO QD PROTONIX PO QD PERCOCET PO Q4HRS PRN : MED/SURG STATUS 3 EAST PLAN: PATIENT'S IS REQUESTING HE BE PLACED AT [facility] T:[phone] F:[phone] PATIENT WAS PERVIOUSLY AT THIS FACILITY
--- NOTE | 2019-01-15 14:46 | NUR ---
CASE MANAGEMENT: REVIEW 01/15/19 SI: POD#6...S/P RESECTION POD #2...S/P CLOSURE 97.6 61 16 98/63 96% ON RA IS: BACTRIM PO 3X/WEEK DIFLUCAN PO QD KEFLEX PO Q6HRS HEPARIN SQ Q12 MVI PO QD ALLOPURINOL PO QD LEXAPRO PO QD LACTOBACILLUS PO QD ZINC PO QD PROTONIX PO QD PERCOCET PO Q4HRS PRN : MED/SURG STATUS 3 EAST PLAN: PATIENT'S IS REQUESTING HE BE PLACED AT [facility] T:[phone] F:[phone] PATIENT WAS PERVIOUSLY AT THIS FACILITY Addendum: 01/15/19 at 1449 by MARIA TERESA NORIEGA LVN LVN ADDENDUM POD#6 AND POD #3
[2019-01-15] MEDS: Dyna-Hex 2% Top Sol 2oz TOPIC SCH (19:19)
--- NOTE | 2019-01-15 19:20 | NUR ---
HAND-OFF: Report given to Susie BARNEY accordingly resting comfortably in bed, patient stable slade rivera.
--- NOTE | 2019-01-15 19:29 | NUR ---
NURSE NOTES: Received patient awake, alert, verbal, on bedrest, complained of back pain, subsequently given prn medication for pain as ordered.
[2019-01-16 04:18] VITALS: BP 105/64
[2019-01-16] MEDS: Cephalexin 500mg cap ORAL SCH ×3 (05:39→18:24)
--- NOTE | 2019-01-16 07:16 | NUR ---
HAND-OFF: Report given to ECTOR Hernandez.
--- NOTE | 2019-01-16 07:17 | NUR ---
NURSE NOTES: Received patient awake, alert and oriented, lying comfortably in bed. Left upper arm picc saline lock. Clinitron bed at lowest level with 2 side rails up. Call light within reach. In no apparent distress at this time. Will continue to monitor.
[2019-01-16 08:00] VITALS: BP 100/63
--- NOTE | 2019-01-16 08:27 | General Progress Note ---
Assessment/Plan Status: stable Assessment/Plan: 1. Resection of stage IV left ischial pressure ulcer with ostectomy in preparation for fasciocutaneous flap. 2. Left gluteal fasciocutaneous rotation flap. 3. chronic non healing wound 4. paraplegia 5. chronic pain 6. s/p resection of distal flap dehiscence PLAN 1. incentive spirometry 2. SQ heparin 3. PT evaluation and therapy 4. Hydration/ monitor cultures 5. Pain management adequate 6. discharge delayed due the above 7. off load; clinitron bed impression, plan, and exam edited and reviewed in detail care discussed with RN Subjective Allergies: Coded Allergies: MEPERIDINE (Verified Allergy, Intermediate, nausea/vomiting, 07/12/17) Subjective care noted post op care noted Objective Last 24 Hour Vital Signs Date Time Temp Pulse Resp B/P (MAP) Pulse Ox O2 Delivery O2 Flow Rate FiO2 01/16/19 06:10 97.6 01/16/19 04:18 97.6 61 17 105/64 (78) 97 01/15/19 23:44 97.7 64 16 100/62 (75) 96 01/15/19 20:07 Room Air 01/15/19 20:01 97.4 59 18 103/66 (78) 97 01/15/19 16:10 97.4 59 17 111/64 (80) 98 01/15/19 12:00 97.4 56 17 125/76 (92) 98 01/15/19 08:31 Room Air Intake and Output 01/15/19 01/16/19 19:00 07:00 Intake Total 720 ml 480 ml Output Total 760 ml 1205 ml Balance -40 ml -725 ml Intake Oral 720 ml 480 ml Output Urine Total 750 ml 1200 ml Drainage Total 10 ml 5 ml # Voids 1 1 Height (Feet): 5 Height (Inches): 5.00 Weight (Pounds): 115 Objective WDWN NAD clear breath sounds bilaterally without rhonchi or wheeze [id number] without MRG NABS nontender no HSM no CCE nonfocal atrophy of LE paraplegic Sarbjit Smith MD Jan 16, 2019 08:27
--- NOTE | 2019-01-16 09:02 | NUR ---
DISCHARGE PLANNING: PATIENT IS REQUESTING TO BE PLACED AT [facility] T:[phone] F:[phone] PATIENT WAS PERVIOUSLY AT THIS FACILITY
[2019-01-16] MEDS: Zinc Sulfate 220mg cap ORAL SCH (09:41)
[2019-01-16] MEDS: Allopurinol 100mg Tab ORAL SCH (09:42)
[2019-01-16] MEDS: Multivitamin w/Minerals tab ORAL SCH (09:42)
[2019-01-16] MEDS: Ascorbic Acid 500mg tab ORAL SCH (09:42)
[2019-01-16] MEDS: Lactobacillus-GG tablet ORAL SCH (09:42)
[2019-01-16] MEDS: Fluconazole 100mg tab ORAL SCH (09:42)
[2019-01-16] MEDS: Heparin 5000 units/ml inj SUBQ SCH ×2 (09:48→21:41)
[2019-01-16 11:29] VITALS: BP 122/75
--- NOTE | 2019-01-16 13:27 | NUR ---
CASE MANAGEMENT: REVIEW 01/16/19 SI: POD#7...S/P RESECTION POD #4...S/P CLOSURE 98.0 65 20 100/63 97% ON RA IS: BACTRIM PO 3X/WEEK DIFLUCAN PO QD KEFLEX PO Q6HRS HEPARIN SQ Q12 MVI PO QD ALLOPURINOL PO QD LEXAPRO PO QD LACTOBACILLUS PO QD ZINC PO QD PROTONIX PO QD PERCOCET PO Q4HRS PRN : MED/SURG STATUS 3 EAST PLAN: PATIENT'S IS REQUESTING HE BE PLACED AT [facility] T:[phone] F:[phone] PATIENT WAS PERVIOUSLY AT THIS FACILITY
--- NOTE | 2019-01-16 14:40 | NUR ---
NURSE NOTES:SKIN ROUNDS: Pt noted to have an area of non-blanching erythema with dry peeling skin sacrum. Surgical Drsg to L ischium clean, dry and intact.Both heels are pink and blanchable.
--- NOTE | 2019-01-16 15:14 | NUR ---
*-* INSURANCE *-* ALL AVAILABLE CLINICALS HAVE BEEN FAXED TO: EVA NGUYEN NO NCM ASSIGNED PLS FAX CLINICALS TO [phone]
[2019-01-16 16:00] VITALS: BP 105/66
--- NOTE | 2019-01-16 16:27 | NUR ---
DISCHARGE PLANNING: PATIENT REFERRED FOR SNF PLACEMENT BY PATIENT IS REQUESTING TO BE PLACED AT [facility] T:[phone] F:[phone] PATIENTS CLINICALS FAXED FOR REVIEW
--- NOTE | 2019-01-16 16:30 | NUR ---
NURSE NOTES: PATIENT RECEIVED FROM YASMIN BOLIVAR RN. PATIENT AWAKE IN BED. DISCUSSED PLAN OF CARE FOR THE REMAINDER OF THE DAY.VERBALIZED UNDERSTANDING. DENIES PAIN AT THIS TIME. CALL LIGHT WITHIN REACH. CLINITRON BED LOCKED AND SECURED. WILL CONTINUE TO MONITOR. Addendum: 01/17/19 at 1424 by ASHUTOSH MAHONEY RN NURSE NOTES: NOTED PATIENT WITH LEFT ISCHIAL SURGICAL SITE WITH DRSG AND OPTIFOAM IN PLACE AND CHANGED BY PREVIOUS RN. OPTIFOAM ON SACRAL SITE NEAR SURGICAL SITE TO ALLEVIATE PRESSURE TO BONY PROMINENCE. PER DR. ELIAS ORDERS ,PT. ONLY TO TURN ONTO SIDE FOR DRSG CHANGES DAILY. PATIENT WITH RESTRICTIVE MOVEMENT IN BED.
--- NOTE | 2019-01-16 19:41 | NUR ---
HAND-OFF: Report given to IONA VILLA RN.
[2019-01-16] MEDS: Dyna-Hex 2% Top Sol 2oz TOPIC SCH (21:42)
--- NOTE | 2019-01-16 23:20 | NUR ---
NURSES NOTE: Met patient in bed, A/O X4, able communicate needs. Patient denies pain at this time. No outward s/s of distress noted at this time. Breathing is even and unlabored on RA. Pt refused 2000 vital signs. Pt is on isolation for MRSA. All due precautions taken. Super pubic catheter is in place, patent, and draining appropriately. Colostomy in place at left lower abdomen. Closed system and changed by patient. PICC line in LUPE is patent. PICC line dressing will be changed 01/17/19. All due meds given. Call light within reach. Pt will continue to be monitored.
[2019-01-17] MEDS: Cephalexin 500mg cap ORAL SCH ×5 (00:32→23:38)
[2019-01-17 04:00] VITALS: BP 102/64
--- NOTE | 2019-01-17 06:51 | Plastic Surgery Progress Note ---
Plastic Surgery-Progress Note Subjective Procedure Performed Resection of left ischial pressure ulcer with ostectomy and gluteal flap closure. Additional Comments POD# 8 s/p flap closure of left ischial ulcer and POD#5 s/p closure of segmental dehisence. Patient doing well. GLENDY <25cc last 24 hours. Objective Last 24 Hour Vital Signs Date Time Temp Pulse Resp B/P (MAP) Pulse Ox O2 Delivery O2 Flow Rate FiO2 01/16/19 21:00 Room Air 01/16/19 16:00 97.7 61 19 105/66 (79) 96 01/16/19 11:40 97.7 01/16/19 11:29 97.7 63 20 122/75 (91) 98 01/16/19 09:00 Room Air 01/16/19 08:00 98.0 65 20 100/63 (75) 97 I&O Intake and Output 01/16/19 01/17/19 19:00 07:00 Intake Total 480 ml Output Total 615 ml Balance -615 ml 480 ml Intake Oral 480 ml Output Urine Total 600 ml Drainage Total 15 ml Dressing: dry Skin Exam: other - Flap healing well. Incision line c/d/i. GLENDY serous. Plan Additional Comments Patient recovering well. GLENDY removed. OK to discharge to SNF on clinitron bed tomorrow. Need to discharge to [facility] in [place] as he has had rehab there before on the clinitron bed. Elmer Pate MD Jan 17, 2019 06:51
--- NOTE | 2019-01-17 07:30 | NUR ---
NURSE NOTES: Patient is in bed awake and able to verbalize needs. Stable. Denies pain or SOB. Patient encouraged to use call light for assistance, verbalized understanding. Plan of care discussed with patient. Patient is on clinitron bed as ordered. Surgical dressings clean, dry, and intact. Patient is in bed with call light within reach. WIll continue to monitor. All needs met at this time.
--- NOTE | 2019-01-17 07:51 | NUR ---
NURSE NOTES: Dressings changed this morning by surgeon. Will continue to monitor dressings. GLENDY removed this am, will monitor site.
[2019-01-17 08:00] VITALS: BP 107/63
--- NOTE | 2019-01-17 08:11 | NUR ---
HAND OFF: Report given to Hui BARNEY. Dressing changed by surgeon this morning at apprx 0600. GLENDY drain removed with 5cc. Picc line change endorsed to AM RN as pt did not want it changed NOC shift. Patient left in stable condition
[2019-01-17] MEDS: Ascorbic Acid 500mg tab ORAL SCH (09:25)
[2019-01-17] MEDS: Heparin 5000 units/ml inj SUBQ SCH ×2 (09:25→20:07)
[2019-01-17] MEDS: Zinc Sulfate 220mg cap ORAL SCH (09:25)
[2019-01-17] MEDS: Allopurinol 100mg Tab ORAL SCH (09:26)
[2019-01-17] MEDS: Fluconazole 100mg tab ORAL SCH (09:26)
[2019-01-17] MEDS: Bactrim-DS 1 tab ORAL SCH (09:26)
[2019-01-17] MEDS: Lactobacillus-GG tablet ORAL SCH (09:26)
[2019-01-17] MEDS: Multivitamin w/Minerals tab ORAL SCH (09:26)
[2019-01-17 12:00] VITALS: BP 95/54
--- NOTE | 2019-01-17 12:23 | General Progress Note ---
Assessment/Plan Status: stable Assessment/Plan: 1. Resection of stage IV left ischial pressure ulcer with ostectomy in preparation for fasciocutaneous flap. 2. Left gluteal fasciocutaneous rotation flap. 3. chronic non healing wound 4. paraplegia 5. chronic pain 6. s/p resection of distal flap dehiscence PLAN 1. incentive spirometry 2. SQ heparin 3. PT evaluation and therapy 4. Hydration- taking PO adequately 5. Pain management adequate 6. discharge planning per surgery 7. off load; clinitron bed impression, plan, and exam edited and reviewed in detail care discussed with RN Subjective Allergies: Coded Allergies: MEPERIDINE (Verified Allergy, Intermediate, nausea/vomiting, 07/12/17) Subjective care noted post op care noted Objective Last 24 Hour Vital Signs Date Time Temp Pulse Resp B/P (MAP) Pulse Ox O2 Delivery O2 Flow Rate FiO2 01/17/19 09:00 Room Air 01/17/19 08:00 97.3 63 19 107/63 (78) 97 01/17/19 04:00 97.5 64 17 102/64 (77) 97 01/16/19 21:00 Room Air 01/16/19 16:00 97.7 61 19 105/66 (79) 96 Intake and Output 01/16/19 01/17/19 19:00 07:00 Intake Total 720 ml Output Total 615 ml 1005 ml Balance -615 ml -285 ml Intake Oral 720 ml Output Urine Total 600 ml 1000 ml Drainage Total 15 ml 5 ml Height (Feet): 5 Height (Inches): 5.00 Weight (Pounds): 115 Objective WDWN NAD clear breath sounds bilaterally without rhonchi or wheeze [id number] without MRG NABS nontender no HSM no CCE nonfocal atrophy of LE paraplegic Sarbjit Smith MD Jan 17, 2019 12:23
--- NOTE | 2019-01-17 14:44 | NUR ---
NURSE NOTES: Redness noted on sacrum after foam tape was removed from skin. Skin is intact. Photos taken, redness measures 7.5cm x4cm. Patient is on clinitron bed as ordered. Skin is clean and dry. No moisture noted.
--- NOTE | 2019-01-17 15:06 | NUR ---
*-* INSURANCE *-* ALL AVAILABLE CLINICALS HAVE BEEN FAXED TO: EVA NGUY[facility] NO NCM ASSIGNED PLS FAX CLINICALS TO [phone]
--- NOTE | 2019-01-17 15:49 | NUR ---
CASE MANAGEMENT: REVIEW 01/17/19 SI: POD#8...S/P RESECTION POD #5...S/P CLOSURE 97.3 63 19 107/63 97% ON RA IS: BACTRIM PO 3X/WEEK DIFLUCAN PO QD KEFLEX PO Q6HRS HEPARIN SQ Q12 MVI PO QD ALLOPURINOL PO QD LEXAPRO PO QD LACTOBACILLUS PO QD ZINC PO QD PROTONIX PO QD PERCOCET PO Q4HRS PRN : MED/SURG STATUS 3 [facility] PLAN: DISCHARGE TO [facility] PENDING AUTHORIZATION
[2019-01-17 16:00] VITALS: BP 99/67
--- NOTE | 2019-01-17 19:30 | NUR ---
HAND-OFF: Report given to Kenia BARNEY. Patient is stable.
--- NOTE | 2019-01-17 19:35 | NUR ---
NURSE NOTES: Received report from ECTOR Ames. Rounds done.
[2019-01-17 20:00] VITALS: BP 98/59
--- NOTE | 2019-01-17 20:00 | NUR ---
NURSE NOTES: patient alert oriented, on Clinitron bed, suprapubic catheter patent, intact, draining clear yellow urine, SCDs on. PICC JORGE L patent, intact. Patient refused PICC dressing change at this time. Would like it done during the day. Will pass onto next shift. Will continue to monitor.
[2019-01-17] MEDS: Dyna-Hex 2% Top Sol 2oz TOPIC SCH (20:06)
[2019-01-18] VITALS: BP 98/61
[2019-01-18 04:00] VITALS: BP 95/54
[2019-01-18] MEDS: Cephalexin 500mg cap ORAL SCH ×3 (06:41→17:29)
--- NOTE | 2019-01-18 07:15 | NUR ---
HAND-OFF: Report given to ECTOR Ames.
--- NOTE | 2019-01-18 07:30 | NUR ---
NURSE NOTES: Patient is in bed asleep. Stable. Breathing is even and unlabored. No visible signs of distress at this time. Patient is on clinitron bed. Patient has call light within reach. All safety measures provided. Will continue to monitor.
[2019-01-18 08:00] VITALS: BP 97/56
--- NOTE | 2019-01-18 08:23 | General Progress Note ---
Assessment/Plan Status: stable Assessment/Plan: 1. Resection of stage IV left ischial pressure ulcer with ostectomy in preparation for fasciocutaneous flap. 2. Left gluteal fasciocutaneous rotation flap. 3. chronic non healing wound 4. paraplegia 5. chronic pain 6. s/p resection of distal flap dehiscence PLAN 1. incentive spirometry 2. SQ heparin 3. PT evaluation and therapy 4. Hydration- taking PO adequately 5. Pain management adequate 6. discharge planning hope today 7. off load; clinitron bed impression, plan, and exam edited and reviewed in detail care discussed with RN Subjective Allergies: Coded Allergies: MEPERIDINE (Verified Allergy, Intermediate, nausea/vomiting, 07/12/17) Subjective care noted post op care noted Objective Last 24 Hour Vital Signs Date Time Temp Pulse Resp B/P (MAP) Pulse Ox O2 Delivery O2 Flow Rate FiO2 01/18/19 07:12 97.8 01/18/19 04:00 97.8 62 17 95/54 (68) 97 01/18/19 00:00 98.3 62 18 98/61 (73) 99 01/17/19 21:00 Room Air 01/17/19 20:00 98.2 59 18 98/59 (72) 97 01/17/19 16:00 97.8 62 19 99/67 (78) 97 01/17/19 12:00 97.6 62 21 95/54 (68) 96 01/17/19 09:00 Room Air Intake and Output 01/17/19 01/18/19 19:00 07:00 Intake Total 720 ml 240 ml Output Total 400 ml 450 ml Balance 320 ml -210 ml Intake Oral 720 ml 240 ml Output Urine Total 400 ml 450 ml Height (Feet): 5 Height (Inches): 5.00 Weight (Pounds): 115 Objective WDWN NAD clear breath sounds bilaterally without rhonchi or wheeze [id number] without MRG NABS nontender no HSM no CCE nonfocal atrophy of LE paraplegic Sarbjit Smith MD Jan 18, 2019 08:23
[2019-01-18] MEDS ORDERED: DiphenhydrAMINE 50mg/ml Inj IVP PRN (09:00)
[2019-01-18] MEDS: Heparin 5000 units/ml inj SUBQ SCH (09:01)
[2019-01-18] MEDS: Multivitamin w/Minerals tab ORAL SCH (09:01)
[2019-01-18] MEDS: Ascorbic Acid 500mg tab ORAL SCH (09:01)
[2019-01-18] MEDS: Zinc Sulfate 220mg cap ORAL SCH (09:01)
[2019-01-18] MEDS: Fluconazole 100mg tab ORAL SCH (09:01)
[2019-01-18] MEDS: Lactobacillus-GG tablet ORAL SCH (09:01)
[2019-01-18] MEDS: Allopurinol 100mg Tab ORAL SCH (09:01)
--- NOTE | 2019-01-18 09:15 | NUR ---
NURSE NOTES: PICC flushing well, patent. PICC line dressing changed as ordered, tolerated well. Skin is clean dry and intact. Small area of redness noted from removal of previous dressing. Cleaned skin thoroughly. Patient aware of signs and symptoms to report. Will continue to monitor.
--- NOTE | 2019-01-18 09:59 | NUR ---
DISCHARGE PLANNING: PATIENT REFERRED FOR SNF PLACEMENT BY PATIENT IS REQUESTING TO BE PLACED AT [facility] T:[phone] F:[phone] FACILITY HAS ACCEPTED WAITING FOR DISCHARGE ORDER
[2019-01-18 12:00] VITALS: BP 100/54
--- NOTE | 2019-01-18 12:43 | NUR ---
DISCHARGE PLANNING: PATIENT REFERRED FOR SNF PLACEMENT BY PATIENT IS REQUESTING TO BE PLACED AT [facility] T:[phone] F:[phone] PENDING AUTHORIZATION FROM INSURANCE
--- NOTE | 2019-01-18 13:53 | NUR ---
*-* INSURANCE *-* ALL AVAILABLE CLINICALS HAVE BEEN FAXED TO: EVA NGUY[facility] NO NCM ASSIGNED PLS FAX CLINICALS TO [phone]
--- NOTE | 2019-01-18 14:02 | NUR ---
RD ASSESSMENT & RECOMMENDATIONS SEE CARE ACTIVITY FOR COMPLETE ASSESSMENT DAILY ESTIMATED NEEDS: Needs based on Advanced wounds, paraplegia, surgery / 52kg 28-35 kcals/kg 1456- 1820 total kcals 1.5-2 g protein/kg 78- 104 g total protein 25-35 mL/kg 1300- 1820 total fluid mLs NUTRITION DIAGNOSIS: Increased KCAL and protein needs r/t wound healing and paraplegia as evidenced by pt w/ advanced ischial wound, s/p surgical intervention, on Clinitron bed. CURRENT DIET:Regular PO DIET RECOMMENDATIONS: REGULAR DIET ADDITIONAL RECOMMENDATIONS: 1) Pt refused snacks b/w meals- reports brings in snacks 2) ANDREZ BID added- pt reports taking 100% 3) Continue MVI, Vit C and ZnSO4 4) Calibrated bed scale wts ABLE- Pt on Clinitron bed 5) Monitor PO intake closely 6) Updated CBC and BMP as able
--- NOTE | 2019-01-18 14:16 | NUR ---
NURSE NOTES: Bed bath given. Dressings changed as ordered, tolerated well.
--- NOTE | 2019-01-18 15:47 | NUR ---
CASE MANAGEMENT: REVIEW 01/18/19 SI: POD#9...S/P RESECTION POD #6...S/P CLOSURE 97.6 68 15 97/56 98%% ON RA IS: BACTRIM PO 3X/WEEK DIFLUCAN PO QD KEFLEX PO Q6HRS HEPARIN SQ Q12 MVI PO QD ALLOPURINOL PO QD LEXAPRO PO QD LACTOBACILLUS PO QD ZINC PO QD PROTONIX PO QD PERCOCET PO Q4HRS PRN : MED/SURG STATUS 3 [facility] PLAN: DISCHARGE TO [facility] PENDING AUTHORIZATION
[2019-01-18 16:00] VITALS: BP 131/100
--- NOTE | 2019-01-18 16:15 | NUR ---
DISCHARGE PLANNING: [facility] T:[phone] FOR NURSE TO NURSE REPORT [facility] PICKUP TIME 530PM PLEASE CALL TO INFORM HER
--- NOTE | 2019-01-18 17:02 | NUR ---
NURSE NOTES: Report given to ADELSO Bedolla at [facility].
--- NOTE | 2019-01-18 18:30 | NUR ---
NURSE NOTES: Patient discharged to [facility] as ordered. Stable. VSS. Breathing is even and unlabored. Debbie is at bedside and aware of discharge. Patient's has all belongings .PICC line patent and flushing, in place per Dr. Smith's orders. Percocet 10/325 PO given x1 dose prior to discharge per Dr. Pate's orders. Patient's skin is clean and dry. All dressings intact and clean, all changed by RN during shift. All paper work and transfer papers given to [facility] unit 622. Patient assisted to [facility] without incident with 2 person assist.
--- NOTE | 2019-01-19 08:49 | Discharge Summary ---
Discharge Summary Discharge Summary _ DATE OF ADMISSION: 01/09/2019 DATE OF DISCHARGE: 01/18/2019 DISCHARGED BY: Dr. Smith REASON FOR ADMISSION: 63-year-old male , with past medical history of panplegia, diverting colostomy , suprapubic catheter, chronic pain, GERD, chronic nonhealing stage IV left ischial pressure ulcer, failed conservative nonsurgical wound management . He had been treated for osteomyelitis with intravenous antibiotics. Patient was scheduled for elective surgery to resect and close the ulcer. CONSULTANTS: surgery DrEmili surgery Dr. Pate [facility] COURSE: Patient admitted to medical surgical floor. Patient undergone resection of left ischium pressure ulcer with ostectomy and gluteal flap closure on 01/09 . Pain management was addressed. Wound care provided as per surgeon recommendation. Supportive care provided. Osmany-Sanches drain output closely monitored. Flap was healing well with no evidence of ischemia. Incision remained intact . On 01/12 dressing was found to be saturated . Clinical exam revealed 3 cm segment of incision dehiscence . Wound was cleaned . Skin of the flap appeared healthy and viable . Patient subsequently undergone on 01/12 closure of left gluteal flap dehiscence. Supportive care provided. Pain management was addressed. Surgeon closely followed . Wound care further provided per surgeon recommendation. SNF medication resumed. Symptomatic treatment provided. Surgeon closely followed. Flap was healing well. Incisional line remained clean dry and intact. GLENDY drain was removed. Surgeon cleared patient for discharge to long term facility on Clinitron bed. DVT prophylaxis provided. Patient was working with physical therapist. Adequate hydration and nutrition was ensured. Incentive spirometry encouraged. Patient had been accepted to [facility] [place] as per family request. Clinitron bed was arranged. Patient clinically stabilized and was ready for discharge for further rehabilitation. FINAL DIAGNOSES: -Stage IV pressure ulcer left ischium, present on admission, nonhealing -status post resection of stage IV left ischial pressure ulcer with ostectomy in preparation for fasciocutaneous flap. Left gluteal fasciocutaneous rotation flap 01/09/19 -Dehiscence of left gluteal flap -status post closure of left gluteal flap dehiscence 01/12/19 -Paraplegia DISCHARGE MEDICATIONS: See Medication Reconciliation list. DISCHARGE INSTRUCTIONS: Patient was discharged to the long term facility. Follow up with medical doctor at the facility. I have been assigned to dictate discharge summary for this account. I was not involved in the patient's management. Asihwarya Fortune NP Jan 19, 2019 08:49
== END 2019-01-18 18:30 | DRG 580 ==
LOC: SDSOVERFLO 10:56 → 3E 16:45
PROC: 0QB30ZZ Excision of Left Pelvic Bone, Open Approach (ICD-10-PCS; principal; 2019-01-09 12:00)
PROC: 0JX90ZZ Transfer Buttock Subcutaneous Tissue and Fascia, Open Approach (ICD-10-PCS; principal; 2019-01-09 12:00)
PROC: 0HQ8XZZ Repair Buttock Skin, External Approach (ICD-10-PCS; 2019-01-12)
DX: L89.324 Pressure ulcer of left buttock, stage 4 (principal); G82.20 Paraplegia, unspecified; M60.052 Infective myositis, left thigh; T81.31XA Disruption of external operation (surgical) wound, not elsewhere classified, initial encounter; K21.9 Gastro-esophageal reflux disease without esophagitis; Y83.2 Surgical operation with anastomosis, bypass or graft as the cause of abnormal reaction of the patient, or of later complication, without mention of misadventure at the time of the procedure; Y92.239 Unspecified place in hospital as the place of occurrence of the external cause; G89.29 Other chronic pain
CPT/HCPCS: 36415; 80053; 85025; 87070; 87081; 87205; 94003; 94150; J2250; J2710

== ENCOUNTER 2019-03-12 08:40 | Outpatient (RCR) | payer BC ==
[~2019-03-12 08:40] MED LIST changes: +ALLOPURINOL100 M1 ORAL; +BACTRIM DS TAB1 EAC1 ORAL; +FLUCONAZOLE100 MG ORAL; +OMEPRAZOLE20 M2 ORAL; +PROBIOTIC1 EAC5 PO; +ZINC50 M1 ORAL
== END 2019-03-30 | disposition home or self-care (01) ==
LOC: WCC 08:40
DX: L98.492 Non-pressure chronic ulcer of skin of other sites with fat layer exposed (principal); T81.31XA Disruption of external operation (surgical) wound, not elsewhere classified, initial encounter; L89.313 Pressure ulcer of right buttock, stage 3; G82.20 Paraplegia, unspecified
CPT/HCPCS: 11042

== ENCOUNTER 2019-04-09 10:15 | Outpatient (RCR) | payer BC | END 2019-04-28 | disposition home or self-care (01) | LOC: WCC 10:15 | DX: L98.492 Non-pressure chronic ulcer of skin of other sites with fat layer exposed (principal); T81.31XA Disruption of external operation (surgical) wound, not elsewhere classified, initial encounter; L89.313 Pressure ulcer of right buttock, stage 3; G04.1 Tropical spastic paraplegia | CPT/HCPCS: 11042 ==

== ENCOUNTER 2019-04-30 09:28 | Outpatient (RCR) | payer BC | END 2019-05-29 | disposition home or self-care (01) | LOC: WCC 09:28 | DX: L98.492 Non-pressure chronic ulcer of skin of other sites with fat layer exposed (principal); L89.313 Pressure ulcer of right buttock, stage 3; T81.31XA Disruption of external operation (surgical) wound, not elsewhere classified, initial encounter; G82.20 Paraplegia, unspecified; X58.XXXA Exposure to other specified factors, initial encounter; Y92.9 Unspecified place or not applicable | CPT/HCPCS: 11042 ==

== ENCOUNTER 2019-06-25 11:13 | Outpatient (RCR) | payer BC | END 2019-06-28 | disposition home or self-care (01) | LOC: WCC 11:13 | DX: L89.311 Pressure ulcer of right buttock, stage 1 (principal); G82.21 Paraplegia, complete ==